=== PATIENT | female | born 1945 | race Caucasian/White ===

== ENCOUNTER 2020-06-24 06:07 | Outpatient (REF) | payer MEDICARE, OTHER, SELFPAY ==
[2020-06-24 11:29] LABS: Estimated Average Glucose 189 mg/dL; Hemoglobin A1c % 8.2 %
[2020-06-24 11:42] LABS: Alanine Aminotransferase 51 U/L (0-31); Anion Gap 14 (12-20); Aspartate Amino Transferase 30 U/L (5-31); Blood Urea Nitrogen 25 mg/dL (9-16); Carbon Dioxide 26 mmol/L (22-29); Chloride 102 mmol/L (96-108); Cholesterol 167 mg/dL; Estimated Glomerular Filt Rate 43; Glucose Fasting 158 mg/dL (60-99); HDL Cholesterol 50 mg/dL; LDL Cholesterol Calculated 81 mg/dl; Potassium 4.2 mmol/l (3.3-5.1); Sodium 138 mmol/L (135-145); Triglycerides 183 mg/dL
[2020-06-24 12:04] LABS: Vitamin D 25-OH Total 57.3 ng/mL (>30)
== END 2020-06-24 06:08 | disposition home or self-care (01) ==
LOC: HO.HMGCLDS 06:07
PROVIDERS: PCP Internal Medicine; Visit Provider Internal Medicine
DX: E78.5 Hyperlipidemia, unspecified (principal); I10 Essential (primary) hypertension; E11.22 Type 2 diabetes mellitus with diabetic chronic kidney disease; E89.40 Asymptomatic postprocedural ovarian failure
CPT/HCPCS: 80048; 80061; 82306; 83036; 84450; 84460

== ENCOUNTER 2020-09-27 06:00 | Outpatient (REF) | payer MEDICARE, OTHER, SELFPAY ==
[2020-09-27 11:26] LABS: Estimated Average Glucose 180 mg/dL; Hemoglobin A1c % 7.9 %
[2020-09-27 11:48] LABS: Alanine Aminotransferase 48 U/L (0-31); Anion Gap 15 (12-20); Aspartate Amino Transferase 33 U/L (5-31); Blood Urea Nitrogen 25 mg/dL (9-16); Calcium 9.1 mg/dL (8.4-10.2); Carbon Dioxide 27 mmol/L (22-29); Chloride 100 mmol/L (96-108); Cholesterol 175 mg/dL; Estimated Glomerular Filt Rate 46; Glucose Fasting 119 mg/dL (60-99); HDL Cholesterol 55 mg/dL; LDL Cholesterol Calculated 84 mg/dl; Potassium 4.1 mmol/L (3.3-5.1); Sodium 138 mmol/L (135-145); Triglycerides 181 mg/dL
[2020-09-27 11:58] LABS: Creatinine Urine 20.99 mg/dL; Microalbum/Creatinine Ratio Ur 38.1 ug/mg cr
== END 2020-09-27 06:01 | disposition home or self-care (01) ==
LOC: HO.HMGCLDS 06:00
PROVIDERS: PCP Internal Medicine; Visit Provider Internal Medicine
DX: E11.65 Type 2 diabetes mellitus with hyperglycemia (principal); E78.5 Hyperlipidemia, unspecified; I10 Essential (primary) hypertension; Z79.4 Long term (current) use of insulin
CPT/HCPCS: 36415; 80048; 80061; 82043; 83036; 84450; 84460

== ENCOUNTER → 2020-10-07 13:18 | Outpatient (BNVA) | payer MEDICARE, OTHER, SELFPAY | PROVIDERS: PCP Internal Medicine; Visit Provider Nurse Practitioner Gerontology | DX: E11.65 Type 2 diabetes mellitus with hyperglycemia (principal); E11.22 Type 2 diabetes mellitus with diabetic chronic kidney disease; I12.9 Hypertensive chronic kidney disease with stage 1 through stage 4 chronic kidney disease, or unspecified chronic kidney disease; N18.30 Chronic kidney disease, stage 3 unspecified; Z79.4 Long term (current) use of insulin; R80.9 Proteinuria, unspecified; E78.5 Hyperlipidemia, unspecified; E66.01 Morbid (severe) obesity due to excess calories; Z68.43 Body mass index [BMI] 50.0-59.9, adult | CPT/HCPCS: 82947; 99212 ==

== ENCOUNTER → 2021-01-06 12:39 | Outpatient (BNVA) | payer MEDICARE, OTHER, SELFPAY | PROVIDERS: PCP Internal Medicine; Visit Provider Nurse Practitioner Gerontology | DX: Z13.89 Encounter for screening for other disorder (principal) | CPT/HCPCS: Q3014 ==

== ENCOUNTER 2021-01-10 06:08 | Outpatient (REF) | payer MEDICARE, OTHER, SELFPAY ==
[2021-01-10 11:53] LABS: Estimated Average Glucose 217 mg/dL; Hemoglobin A1c % 9.2 %
[2021-01-10 11:59] LABS: Alanine Aminotransferase 56 U/L (0-31); Anion Gap 15 (12-20); Aspartate Amino Transferase 49 U/L (5-31); Blood Urea Nitrogen 16 mg/dL (9-16); Calcium 8.9 mg/dL (8.4-10.2); Carbon Dioxide 26 mmol/L (22-29); Chloride 99 mmol/L (96-108); Cholesterol 154 mg/dL; Estimated Glomerular Filt Rate 49; Glucose Fasting 139 mg/dL (60-99); HDL Cholesterol 42 mg/dL; LDL Cholesterol Calculated 75 mg/dl; Potassium 4.1 mmol/L (3.3-5.1); Sodium 136 mmol/L (135-145); Triglycerides 185 mg/dL
[2021-01-10 12:20] LABS: Creatinine Urine 47.89 mg/dL; Microalbum/Creatinine Ratio Ur 43.8 ug/mg cr; Vitamin D 25-OH Total 66.5 ng/mL (>30)
== END 2021-01-10 06:09 | disposition home or self-care (01) ==
LOC: HO.HMGCLDS 06:08
PROVIDERS: PCP Internal Medicine; Visit Provider Nurse Practitioner Gerontology
DX: E11.65 Type 2 diabetes mellitus with hyperglycemia (principal); E11.22 Type 2 diabetes mellitus with diabetic chronic kidney disease; I12.9 Hypertensive chronic kidney disease with stage 1 through stage 4 chronic kidney disease, or unspecified chronic kidney disease; N18.30 Chronic kidney disease, stage 3 unspecified; R80.9 Proteinuria, unspecified; E78.5 Hyperlipidemia, unspecified; E78.2 Mixed hyperlipidemia; Z79.4 Long term (current) use of insulin
CPT/HCPCS: 36415; 80048; 80061; 82043; 82306; 83036; 84450; 84460

== ENCOUNTER → 2021-07-07 09:43 | Outpatient (BNVA) | payer MEDICARE, SELFPAY | PROVIDERS: PCP Internal Medicine; Visit Provider Nurse Practitioner Gerontology | DX: E11.65 Type 2 diabetes mellitus with hyperglycemia (principal); E11.22 Type 2 diabetes mellitus with diabetic chronic kidney disease; I12.9 Hypertensive chronic kidney disease with stage 1 through stage 4 chronic kidney disease, or unspecified chronic kidney disease; N18.30 Chronic kidney disease, stage 3 unspecified; E78.5 Hyperlipidemia, unspecified; E66.01 Morbid (severe) obesity due to excess calories; R80.9 Proteinuria, unspecified; Z79.4 Long term (current) use of insulin; Z68.43 Body mass index [BMI] 50.0-59.9, adult | CPT/HCPCS: 82947; 83036; 99212 ==

== ENCOUNTER 2021-07-10 06:02 | Outpatient (REF) | payer MEDICARE, SELFPAY ==
[2021-07-10 11:53] LABS: Alanine Aminotransferase 46 U/L (0-31); Anion Gap 13 (12-20); Aspartate Amino Transferase 29 U/L (5-31); Blood Urea Nitrogen 22 mg/dL (9-16); Calcium 9.5 mg/dL (8.4-10.2); Carbon Dioxide 27 mmol/L (22-29); Chloride 102 mmol/L (96-108); Cholesterol 183 mg/dL; Estimated Glomerular Filt Rate 47; Glucose Fasting 113 mg/dL (60-99); HDL Cholesterol 56 mg/dL; LDL Cholesterol Calculated 93 mg/dl; Potassium 3.9 mmol/L (3.3-5.1); Sodium 138 mmol/L (135-145); Triglycerides 174 mg/dL
== END 2021-07-10 06:03 | disposition home or self-care (01) ==
LOC: HO.HMGCLDS 06:02
PROVIDERS: PCP Internal Medicine; Visit Provider Internal Medicine
DX: I12.9 Hypertensive chronic kidney disease with stage 1 through stage 4 chronic kidney disease, or unspecified chronic kidney disease (principal); N18.30 Chronic kidney disease, stage 3 unspecified; E11.22 Type 2 diabetes mellitus with diabetic chronic kidney disease; E11.65 Type 2 diabetes mellitus with hyperglycemia; E66.01 Morbid (severe) obesity due to excess calories; Z68.43 Body mass index [BMI] 50.0-59.9, adult; E78.2 Mixed hyperlipidemia; R80.9 Proteinuria, unspecified; Z79.4 Long term (current) use of insulin
CPT/HCPCS: 36415; 80048; 80061; 84450; 84460

== ENCOUNTER → 2021-10-02 09:44 | Outpatient (BNVA) | payer MEDICARE, SELFPAY | PROVIDERS: PCP Internal Medicine; Visit Provider Registered Nurse Diabetes Educator | DX: E11.22 Type 2 diabetes mellitus with diabetic chronic kidney disease (principal); I12.9 Hypertensive chronic kidney disease with stage 1 through stage 4 chronic kidney disease, or unspecified chronic kidney disease; N18.30 Chronic kidney disease, stage 3 unspecified; E78.2 Mixed hyperlipidemia | CPT/HCPCS: 95250 ==

== ENCOUNTER 2021-10-16 07:34 | Outpatient (REF) | payer MEDICARE, SELFPAY ==
[2021-10-16 12:05] LABS: Anion Gap 15 (12-20); Blood Urea Nitrogen 23 mg/dL (9-16); Calcium 9.8 mg/dL (8.4-10.2); Carbon Dioxide 25 mmol/L (22-29); Chloride 102 mmol/L (96-108); Estimated Glomerular Filt Rate 39; Potassium 4.7 mmol/L (3.3-5.1); Sodium 137 mmol/L (135-145)
== END 2021-10-16 07:35 | disposition home or self-care (01) ==
LOC: HO.HMGCLDS 07:34
PROVIDERS: Visit Provider Internal Medicine Hypertension Specialist
DX: I12.9 Hypertensive chronic kidney disease with stage 1 through stage 4 chronic kidney disease, or unspecified chronic kidney disease (principal); N18.31 Chronic kidney disease, stage 3a; E11.22 Type 2 diabetes mellitus with diabetic chronic kidney disease; E11.65 Type 2 diabetes mellitus with hyperglycemia; R80.9 Proteinuria, unspecified; E78.5 Hyperlipidemia, unspecified; E66.01 Morbid (severe) obesity due to excess calories; Z68.43 Body mass index [BMI] 50.0-59.9, adult; Z79.4 Long term (current) use of insulin; Z71.3 Dietary counseling and surveillance
CPT/HCPCS: 36415; 80051; 82310; 82565; 82947; 83036; 84520; 99212

== ENCOUNTER 2021-11-27 06:20 | Outpatient (REF) | payer MEDICARE, SELFPAY ==
[2021-11-27 11:54] LABS: Alanine Aminotransferase 31 U/L (0-31); Anion Gap 13 (12-20); Aspartate Amino Transferase 21 U/L (5-31); Blood Urea Nitrogen 31 mg/dL (9-16); Calcium 9.7 mg/dL (8.4-10.2); Carbon Dioxide 26 mmol/L (22-29); Chloride 102 mmol/L (96-108); Cholesterol 170 mg/dL; Estimated Glomerular Filt Rate 39; Glucose Fasting 136 mg/dL (60-99); HDL Cholesterol 57 mg/dL; LDL Cholesterol Calculated 83 mg/dl; Potassium 4.2 mmol/L (3.3-5.1); Sodium 137 mmol/L (135-145); Triglycerides 154 mg/dL
[2021-11-27 12:00] LABS: Vitamin D 25-OH Total 50.2 ng/mL (>30)
== END 2021-11-27 06:21 | disposition home or self-care (01) ==
LOC: HO.HMGCLDS 06:20
PROVIDERS: Internal Medicine; Visit Provider Internal Medicine
DX: I12.9 Hypertensive chronic kidney disease with stage 1 through stage 4 chronic kidney disease, or unspecified chronic kidney disease (principal); N18.30 Chronic kidney disease, stage 3 unspecified; E11.22 Type 2 diabetes mellitus with diabetic chronic kidney disease; E11.65 Type 2 diabetes mellitus with hyperglycemia; E11.29 Type 2 diabetes mellitus with other diabetic kidney complication; E66.01 Morbid (severe) obesity due to excess calories; Z68.43 Body mass index [BMI] 50.0-59.9, adult; E78.2 Mixed hyperlipidemia; R80.9 Proteinuria, unspecified; Z79.4 Long term (current) use of insulin
CPT/HCPCS: 36415; 80048; 80061; 82306; 84450; 84460

== ENCOUNTER → 2022-01-12 08:46 | Outpatient (BNVA) | payer MEDICARE, SELFPAY | PROVIDERS: PCP Internal Medicine; Visit Provider Nurse Practitioner Gerontology | DX: E11.22 Type 2 diabetes mellitus with diabetic chronic kidney disease (principal); N18.30 Chronic kidney disease, stage 3 unspecified; E11.65 Type 2 diabetes mellitus with hyperglycemia; E78.5 Hyperlipidemia, unspecified; E66.01 Morbid (severe) obesity due to excess calories; R80.9 Proteinuria, unspecified; I10 Essential (primary) hypertension; Z68.43 Body mass index [BMI] 50.0-59.9, adult; Z79.4 Long term (current) use of insulin | CPT/HCPCS: 82947; 99212 ==

== ENCOUNTER 2022-04-16 07:26 | Outpatient (REF) | payer MEDICARE, SELFPAY ==
[2022-04-16 12:05] LABS: Anion Gap 16 (12-20); Blood Urea Nitrogen 29 mg/dL (9-16); Calcium 9.7 mg/dL (8.4-10.2); Carbon Dioxide 24 mmol/L (22-29); Chloride 101 mmol/L (96-108); Estimated Glomerular Filt Rate 39; Potassium 4.2 mmol/L (3.3-5.1); Sodium 137 mmol/L (135-145)
[2022-04-16 12:46] LABS: Total Protein Urine Random < 7 mg/dL (<12)
== END 2022-04-16 07:27 | disposition home or self-care (01) ==
LOC: HO.HMGCLDS 07:26
PROVIDERS: PCP Internal Medicine; Visit Provider Internal Medicine Hypertension Specialist
DX: E11.22 Type 2 diabetes mellitus with diabetic chronic kidney disease (principal); N18.32 Chronic kidney disease, stage 3b
CPT/HCPCS: 36415; 80051; 82310; 82565; 84156; 84520

== ENCOUNTER 2022-09-21 06:43 | Outpatient (REF) | payer MEDICARE, SELFPAY ==
[2022-09-21 12:01] LABS: Estimated Average Glucose 186 mg/dL; Hemoglobin A1c % 8.1 %
[2022-09-21 12:09] LABS: Alanine Aminotransferase 33 U/L (0-31); Anion Gap 13 (12-20); Aspartate Amino Transferase 23 U/L (5-31); Blood Urea Nitrogen 26 mg/dL (9-16); Calcium 8.9 mg/dL (8.4-10.2); Carbon Dioxide 25 mmol/L (22-29); Chloride 102 mmol/L (96-108); Cholesterol 172 mg/dL; Estimated Glomerular Filt Rate 47; Glucose Fasting 150 mg/dL (60-99); HDL Cholesterol 62 mg/dL; LDL Cholesterol Calculated 84 mg/dl; Potassium 4.3 mmol/L (3.3-5.1); Sodium 136 mmol/L (135-145); Triglycerides 134 mg/dL
[2022-09-21 12:58] LABS: Creatinine Urine 13.44 mg/dL; Microalbumin Urine < 5.0 mg/L
== END 2022-09-21 06:44 | disposition home or self-care (01) ==
LOC: HO.HMGCLDS 06:43
PROVIDERS: Visit Provider Internal Medicine
DX: E11.65 Type 2 diabetes mellitus with hyperglycemia (principal); E78.2 Mixed hyperlipidemia; I10 Essential (primary) hypertension; Z79.4 Long term (current) use of insulin
CPT/HCPCS: 36415; 80048; 80061; 82043; 83036; 84450; 84460

== ENCOUNTER 2022-12-28 06:12 | Outpatient (REF) | payer MEDICARE, SELFPAY ==
[2022-12-28 12:08] LABS: Alanine Aminotransferase 37 U/L (0-31); Anion Gap 13 (12-20); Aspartate Amino Transferase 27 U/L (5-31); Blood Urea Nitrogen 20 mg/dL (9-16); Calcium 9.4 mg/dL (8.4-10.2); Carbon Dioxide 25 mmol/L (22-29); Chloride 105 mmol/L (96-108); Cholesterol 159 mg/dL; Estimated Average Glucose 169 mg/dL; Estimated Glomerular Filt Rate 46; Glucose Fasting 126 mg/dL (60-99); HDL Cholesterol 53 mg/dL; Hemoglobin A1c % 7.5 %; LDL Cholesterol Calculated 69 mg/dl; Potassium 3.9 mmol/L (3.3-5.1); Sodium 139 mmol/L (135-145); Triglycerides 186 mg/dL
[2022-12-28 12:11] LABS: Vitamin D 25-OH Total 64.1 ng/mL (>30)
[2022-12-28 12:36] LABS: Creatinine Urine 34.03 mg/dL; Microalbumin Urine < 5.0 mg/L
== END 2022-12-28 06:13 | disposition home or self-care (01) ==
LOC: HO.HMGCLDS 06:12
PROVIDERS: PCP Internal Medicine; Visit Provider Internal Medicine
DX: I12.9 Hypertensive chronic kidney disease with stage 1 through stage 4 chronic kidney disease, or unspecified chronic kidney disease (principal); E11.22 Type 2 diabetes mellitus with diabetic chronic kidney disease; N18.9 Chronic kidney disease, unspecified; E11.65 Type 2 diabetes mellitus with hyperglycemia; E66.01 Morbid (severe) obesity due to excess calories; E78.2 Mixed hyperlipidemia; R80.9 Proteinuria, unspecified; Z79.4 Long term (current) use of insulin
CPT/HCPCS: 36415; 80048; 80061; 82043; 82306; 83036; 84450; 84460

== ENCOUNTER 2023-02-08 06:44 | Outpatient (REF) | payer MEDICARE, SELFPAY ==
[2023-02-08 13:55] LABS: MANUAL DIFF FLAG NO
[2023-02-08 14:10] LABS: Basophils Absolute Auto 0.1 X10*3/uL (0.0-0.2); Basophils Percent Auto 1.2 % (0-2); Eosinophils Absolute Auto 0.3 X10*3/uL (0.0-0.4); Eosinophils Percent Auto 4.8 % (0-4); Hematocrit 43.5 % (37.0-47.0); Hemoglobin 13.6 g/dl (12.0-16.0); Imm Gran Abs Auto 0.07 X10*3/uL (0.00-0.03); Imm Gran Pct Auto 1.2 % (0.0-0.4); Lymphocytes Absolute Auto 1.7 X10*3/uL (1.2-4.9); Lymphocytes Percent Auto 29.1 % (20-40); Mean Corpuscular HGB Conc 31.3 g/dl (31.0-35.0); Mean Corpuscular Volume 89.5 fL (80.0-98.0); Mean Platelet Volume 9.8 fL (9.4-12.3); Monocytes Absolute Auto 0.5 X10*3/uL (0.1-1.2); Monocytes Percent Auto 8.9 % (2-11); Neutrophils Absolute Auto 3.3 x10*3/uL (2.0-8.3); Neutrophils Percent Auto 54.8 % (45-73); Platelet Count 261 X10*3/uL (160-400); Red Blood Count 4.86 X10*6/uL (4.20-5.50); Red Cell Distribution Width 13.5 % (11.0-16.0)
[2023-02-08 14:31] LABS: Anion Gap 15 (12-20); Blood Urea Nitrogen 27 mg/dL (9-16); Calcium 9.4 mg/dL (8.4-10.2); Carbon Dioxide 25 mmol/L (22-29); Chloride 101 mmol/L (96-108); Estimated Glomerular Filt Rate 42; Glucose Random 142 mg/dL (60-115); Potassium 4.1 mmol/L (3.3-5.1); Sodium 137 mmol/L (135-145)
[2023-02-08 14:35] LABS: Creatinine Urine 24.44 mg/dL; Total Protein Urine Random < 7 mg/dL (<12)
== END 2023-02-08 06:45 | disposition home or self-care (01) ==
LOC: HO.HMGCLDS 06:44
PROVIDERS: PCP Internal Medicine; Visit Provider Internal Medicine Hypertension Specialist
DX: I12.9 Hypertensive chronic kidney disease with stage 1 through stage 4 chronic kidney disease, or unspecified chronic kidney disease (principal); N18.9 Chronic kidney disease, unspecified
CPT/HCPCS: 36415; 80048; 84156; 85025

== ENCOUNTER 2023-05-13 07:08 | Outpatient (REF) | payer MEDICARE, SELFPAY ==
[2023-05-13 11:58] LABS: Estimated Average Glucose 160 mg/dL; Hemoglobin A1c % 7.2 % (<6.0)
[2023-05-13 12:01] LABS: Alanine Aminotransferase 36 U/L (0-31); Aspartate Amino Transferase 26 U/L (5-31); Cholesterol 165 mg/dL (<200); HDL Cholesterol 57 mg/dL (>40); LDL Cholesterol Calculated 74 mg/dL (<100); Triglycerides 172 mg/dL (<150)
== END 2023-05-13 07:09 | disposition home or self-care (01) ==
LOC: HO.HMGCLDS 07:08
PROVIDERS: PCP Internal Medicine; Visit Provider Internal Medicine
DX: E11.22 Type 2 diabetes mellitus with diabetic chronic kidney disease (principal); I12.9 Hypertensive chronic kidney disease with stage 1 through stage 4 chronic kidney disease, or unspecified chronic kidney disease; E78.2 Mixed hyperlipidemia; E66.09 Other obesity due to excess calories; N18.9 Chronic kidney disease, unspecified
CPT/HCPCS: 36415; 80061; 83036; 84450; 84460

== ENCOUNTER 2023-05-16 14:52 | Outpatient (AMB) | payer MEDICARE, SELFPAY ==
[2023-05-16 15:43] VITALS: BP 126/68; PULSE 57; O2SAT 97; BMI 56.3
--- NOTE | 2023-05-16 15:43 | MHC.PC.OV ---
Vital Signs 05/16/23 15:43 Height 4 ft 2 in Weight 200 lb 2 oz BMI 56.3 BP 126/68 Blood Pressure Location Rt brachial Position Sitting Pulse 57 Pulse Source Pulse Oximeter Pulse Oximetry (%) 97 Oxygen Delivery Method Room Air Intake Visit Reasons: follow up Intake Note: pt is here to follow up lab results Allergies No Known Allergies [No Known Allergies*] Allergy (Verified 05/16/23 16:06) Medication List - Last Reconciled 05/16/23 by Candice Santoyo MD acetaminophen ER (Tylenol Arthritis Pain) 650 mg PO Q12H amlodipine 10 mg PO DAILY atenolol 150 mg (1.5 x 100 mg) PO DAILY 90 days atorvastatin 20 mg PO DAILY blood sugar diagnostic (CodeHSuch Verio test strips) Three times a day blood-glucose meter (CodeHSuch Verio Meter) As directed calcium citrate-vitamin D3 315 mg-6.25 mcg (250 unit) (Citracal + Vitamin D Maximum) 1 tab PO DAILY cranberry extract 250 mg PO DAILY empagliflozin (Jardiance) 25 mg PO DAILY flaxseed oil 1,000 mg PO BID insulin glargine (Lantus Solostar U-100 Insulin) 50 units (0.5 mL) subcut QAM lancets (CodeHSuch Delica Lancets) Check blood sugar 3 times a day before meals topical 3 times a day lisinopril 30 mg PO DAILY metformin ER 750 mg PO BID multivitamin with minerals 1 cap PO DAILY omega [id number]-[id number]-fish oil 1,200 (144-216) mg (Fish Oil) caps PO pen needle, diabetic (BD Ultra-Fine Short Pen Needle) Use daily as directed subcut daily; repaglinide 2 mg PO TID 30 days Tobacco use date assessed: 05/16/23 Fall risk assessment: No Falls in past year Last assessed Fall Risk: 05/16/23 Dental Screening Dental Screen Date: 05/16/23 Did you have a dental visit in the last 12 months?: No Did you have a dental problem in the last 6 months where you did not have access to dental care?: No Was dental information given to patient?: No HPI follow up HPI Details 77-year-old lady here today for follow-up on her diabetes mellitus, hypertension, dyslipidemia. Has been compliant with taking her medications, has been trying to walk regularly for exercise. She sees Dr. Hinojosa for her routine diabetes foot exam, and has an appointment scheduled 06/27/2023 for her next check. She sees Dr. Carbajal for her routine eye exam, which is currently up-to-date done last 05/10/2023. She has been followed by [facility], sees Dr. Dominique last seen 02/08/2023 with no changes in his medication made. She had recent fasting labs done which showed improvement in her diabetes control now with a hemoglobin A1c at 7.2% and fasting lipids are within normal limits. [facility] Medical History Papanicolaou smear declined Colonoscopy refused Type 2 diabetes mellitus with hyperglycemia Obesity due to excess calories Type 2 diabetes mellitus with chronic kidney disease Mixed dyslipidemia Essential hypertension DUB (dysfunctional uterine bleeding) CKD stage 3 secondary to diabetes Diabetes mellitus with microalbuminuria, with long-term current use of insulin Mammogram declined Diabetes mellitus with hyperglycemia, with long-term current use of insulin Surgical History Hx of hysterectomy S/P LOLIS-BSO Family History Father CAD (coronary artery disease) Mother Diabetes mellitus Lung cancer Sister Diabetes mellitus Social History Household Members: None Housing: House Alcohol intake: never Patient Tobacco Use Status: Former Tobacco user Years Smoked: 14 yrs e-Cigarette/Vaping Use: Never Used service: No Current occupational status: employed Cognitive needs: No Hearing needs: No Vision needs: Yes Questionnaire Thrive Questionnaire Date Thrive assessed: 01/17/23 JOSH-7 AMB Questionnaire JOSH-7 Date JOSH - 7 assessed: 01/17/23 Source: Developed by Drs. Ike Michelle, Gege Mary, David Borges and colleagues, with an educational shea from [employer]. Review of Systems Const Denies body aches, Denies fatigue and Denies malaise Eyes Details: Sees Dr. Carbajal yearly ENT Reports no additional complaints Card Denies palpitations and Denies dyspnea Resp Denies cough and Denies dyspnea GI Denies abdominal pain, Denies melena, Denies hematochezia, Denies change in bowel habits and Denies heartburn Denies hematuria, Denies urinary frequency, Denies dysuria and Reports urinary incontinence (occasional) Musc Reports muscle cramps, Denies muscle weakness, Denies numbness and Denies tingling Skin/Breast Denies breast pain, Denies breast mass and Denies rash Neuro Denies burning sensations, Denies numbness, Denies tingling and Denies paresthesias Psych Denies depression Endo Denies fatigue, Denies polydipsia, Reports polyuria and Denies palpitations Obi/Lymph Denies easy bruising Physical exam (Primary Care) Vital Signs: Last Vital Signs Pulse 57 05/16/23 15:43 BP 126/68 05/16/23 15:43 Pulse Ox 97 05/16/23 15:43 Oxygen Delivery Method Room Air 05/16/23 15:43 BMI result Body Mass Index 56.3 BMI Assessment/Plan discussion: High BMI High, discussed plan: lifestyle, weight reduction, dietary and physical activity Tobacco/Smoking Status: Tobacco use Status Tobacco use date assessed 05/16/23 05/16/23 15:51 Patient Tobacco Use Status Former Tobacco user 05/16/23 15:45 e-Cigarette/Vaping Use Never Used 05/16/23 15:45 Thrive Assessment: Date of Thrive Assessment Date Thrive assessed 01/17/23 05/16/23 15:45 Const General: cooperative, comfortable and no acute distress Nutritional Appearance: obese morbidly obese Orientation/consciousness: patient oriented x3 HENMT Ears: TM's normal bilaterally and EAC's normal General nose exam: Normal external nose present, Normal nasal mucous membranes and turbinates present and No nasal discharge present Mouth: Normal oral and palatal mucosa present, oropharynx normal and moist mucous membranes Eyes General: appearance normal, both eyes and all related structures Neck Neck: Yes full ROM, Yes no lymphadenopathy and Yes supple Resp Effort & Inspection: normal respiratory effort and able to speak in complete sentences Auscultation: clear to auscultation bilaterally Cardio Rate: regular rate Rhythm: regular rhythm Heart sounds: S1 normal heart sound present and S2 normal heart sound present GI Inspection: Yes obesity Palpation (GI): Soft to palpation, nontender, no guarding and no masses Auscultation: normal bowel sounds Back/Spine/Pelvis Cervical Spine: cervical ROM normal Thoracic/Lumbar Spine: thoracic and lumbar spine normal to inspection Skin General skin exam: no rashes or lesions noted Neuro General: patient oriented x3, gait normal, tone normal, moves all extremities, Normal light touch and pain sensation and no focal motor deficits Cognition (Neuro): normal cognition Gait exam (Neuro): Normal gait present Motor exam (neuro): 5/5 motor strength present throughout Extrem General: Yes full ROM, Yes no joint enlargement, Yes no pedal edema, Yes no calf tenderness and Yes normal gait Immunizations pneumoc 20-bertha conj-dip cr(PF) 0.5 mL IM syringe Performing Provider: Candice Santoyo MD Performing Location: [facility] Administered by: Jada Mejia CMA on 05/16/23 16:38 Dose Route Admin Location Dispensed Lot Number Expiration Date NDC 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 Representative [employer] 0.5 mL IM Right Deltoid 0.5 mL [id number] 03/20/24 8792-0838-07 [employer] VIS Given Date VIS Provided VIS Publication Date 05/16/23 Single Vaccine 21 Eligibility Eligibility Date Funding Source Not [facility] Eligible 05/16/23 Private Results Reviewed Results Reviewed: Laboratory Tests 05/13/23 07:18 Estimat Average Glucose 160 Hemoglobin A1c % 7.2 H AST 26 ALT 36 H Triglycerides 172 H Cholesterol 165 LDL Cholesterol, Calc 74 HDL Cholesterol 57 Assessment and Plan Assessment & Plan (1) Type 2 diabetes mellitus with hyperglycemia: Code(s): E11.65 - Type 2 diabetes mellitus with hyperglycemia Qualifiers: Diabetes mellitus bed bug exterminator insulin use: with bed bug exterminator use Qualified Code(s): E11.65 - Type 2 diabetes mellitus with hyperglycemia; Z79.4 - penitentiary (current) use of insulin Plan: Improvement during her diabetes control seen with hemoglobin A1c now at 7.2%, will continue on current treatment. Recommended diet and getting regular exercise. Up-to-date with her diabetes eye exam and sees Dr. Hinojosa for her routine foot care. Reminded to get her COVID booster, up-to-date with her flu vaccine shingles vaccine and Tdap, Prevnar 20 given today (2) Essential hypertension: Code(s): I10 - Essential (primary) hypertension Plan: Blood pressure at goal of less than 130/80. Continue with current medication. Reinforced importance of following a low sodium diet, getting regular exercise, and lowering stress levels. (3) Mixed dyslipidemia: Code(s): E78.2 - Mixed hyperlipidemia Plan: Reviewed recent fasting lipid profile with patient with levels within normal limits . Continue with atorvastatin 20 mg daily in addition to [place] 3 fatty acid supplements , in addition to adherence to low-cholesterol diet and regular exercise, at least 30 minutes 3 to 4 times a week. Advised patient to make healthy food choices, eat more fruits, vegetables, whole grains, wild caught fish and low-fat dairy. Limit amount of meat and fried or fatty food products, as well as processed foods and fast foods. Follow-up scheduled with repeat fasting lipid panel in 6 months. (4) Obesity due to excess calories: Code(s): E66.09 - Other obesity due to excess calories Qualifiers: Body mass index: BMI 50.0-59.9 Obesity classification: adult class 3 (BMI >= 40) Serious obesity comorbidity presence: with serious comorbidity Qualified Code(s): E66.01 - Morbid (severe) obesity due to excess calories; Z68.43 - Body mass index [BMI] 50.0-59.9, adult Plan: Recommended focusing on improving health instead of dieting. Mediterranean diet is a healthy diet that helps, limit food high in fat, sugar, and calories. Eat slowly, pay attention to portion sizes, plan your meals ahead of time, continue with regular physical activity, at least 150 minutes of moderate intensity exercise, or 90 minutes per week of vigorous exercise. Keeping a food diary, tracking what you eat and your physical activity can help assess what improvements you can make. There are many health problems associated with being overweight/obese, so it is important to improve your diet and exercise. Declined referral to weight management program (5) CKD stage 3 secondary to diabetes: Code(s): E11.22 - Type 2 diabetes mellitus with diabetic chronic kidney disease; N18.30 - Chronic kidney disease, stage 3 unspecified Plan: Referred back to Dr. Dominique for follow-up Orders: Orders Hemoglobin A1c 6 Months E11.22 - Type 2 diabetes mellitus with diabetic chronic kidney disease, E11.29 - Type 2 diabetes mellitus with other diabetic kidney complication, E11.65 - Type 2 diabetes mellitus with hyperglycemia, E66.09 - Other obesity due to excess calories, E78.2 - Mixed hyperlipidemia, I10 - Essential (primary) hypertension, N18.30 - Chronic kidney disease, stage 3 unspecified, R80.9 - Proteinuria, unspecified, Z78.0 - Asymptomatic menopausal state, Z79.4 - penitentiary (current) use of insulin Lipid Panel 6 Months E11.22 - Type 2 diabetes mellitus with diabetic chronic kidney disease, E11.29 - Type 2 diabetes mellitus with other diabetic kidney complication, E11.65 - Type 2 diabetes mellitus with hyperglycemia, E66.09 - Other obesity due to excess calories, E78.2 - Mixed hyperlipidemia, I10 - Essential (primary) hypertension, N18.30 - Chronic kidney disease, stage 3 unspecified, R80.9 - Proteinuria, unspecified, Z78.0 - Asymptomatic menopausal state, Z79.4 - penitentiary (current) use of insulin Vitamin D 25-OH Total 6 Months E11.22 - Type 2 diabetes mellitus with diabetic chronic kidney disease, E11.29 - Type 2 diabetes mellitus with other diabetic kidney complication, E11.65 - Type 2 diabetes mellitus with hyperglycemia, E66.09 - Other obesity due to excess calories, E78.2 - Mixed hyperlipidemia, I10 - Essential (primary) hypertension, N18.30 - Chronic kidney disease, stage 3 unspecified, R80.9 - Proteinuria, unspecified, Z78.0 - Asymptomatic menopausal state, Z79.4 - terminal operations manager (current) use of insulin Pneumococcal 20 Immunization 05/16/23 Z23 - Encounter for immunization Comprehensive [place]. Panel Fast 6 Months E11.22 - Type 2 diabetes mellitus with diabetic chronic kidney disease, E11.29 - Type 2 diabetes mellitus with other diabetic kidney complication, E11.65 - Type 2 diabetes mellitus with hyperglycemia, E66.09 - Other obesity due to excess calories, E78.2 - Mixed hyperlipidemia, I10 - Essential (primary) hypertension, N18.30 - Chronic kidney disease, stage 3 unspecified, R80.9 - Proteinuria, unspecified, Z78.0 - Asymptomatic menopausal state, Z79.4 - terminal operations manager (current) use of insulin Microalbumin, Random (w Creat) 6 Months E11.22 - Type 2 diabetes mellitus with diabetic chronic kidney disease, E11.29 - Type 2 diabetes mellitus with other diabetic kidney complication, E11.65 - Type 2 diabetes mellitus with hyperglycemia, E66.09 - Other obesity due to excess calories, E78.2 - Mixed hyperlipidemia, I10 - Essential (primary) hypertension, N18.30 - Chronic kidney disease, stage 3 unspecified, R80.9 - Proteinuria, unspecified, Z78.0 - Asymptomatic menopausal state, Z79.4 - terminal operations manager (current) use of insulin Referrals Nephrology Referral E11.22 - Type 2 diabetes mellitus with diabetic chronic kidney disease, E11.29 - Type 2 diabetes mellitus with other diabetic kidney complication, I10 - Essential (primary) hypertension, N18.30 - Chronic kidney disease, stage 3 unspecified, R80.9 - Proteinuria, unspecified, Z79.4 - terminal operations manager (current) use of insulin Coding Level of Care Code Est Pt Level 4 (67639) Diagnoses Type 2 diabetes mellitus with hyperglycemia, with long-term current use of insulin E11.65; Z79.4 Diabetes mellitus intermediate insulin use: with intermediate use Essential hypertension I10 Mixed dyslipidemia E78.2 Class 3 severe obesity due to excess calories with serious comorbidity and body mass index (BMI) of 50.0 to 59.9 in adult E66.01; Z68.43 Body mass index: BMI 50.0-59.9 Obesity classification: adult class 3 (BMI >= 40) Serious obesity comorbidity presence: with serious comorbidity CKD stage 3 secondary to diabetes E11.22; N18.30
== END 2023-05-16 17:29 | disposition home or self-care (01) ==
PROVIDERS: PCP Internal Medicine; Visit Provider Internal Medicine
DX: Z23 Encounter for immunization (principal)
CPT/HCPCS: 90471; 90677; 99214

== ENCOUNTER 2023-06-06 11:29 | Outpatient (AMB) | payer MEDICARE, SELFPAY ==
--- NOTE | 2023-06-06 11:34 | HO.NEPHOV ---
HPI HPI Comments History of Present Illness Details Erica is a elderly woman with his obesity and hypertension with minimal proteinuria. She is here for same and will follow-up. Recently had a fall. This was accidental no lightheadedness. 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 mellitus with microalbuminuria, with long-term current use of insulin Mammogram declined Diabetes mellitus with hyperglycemia, with long-term current use of insulin Surgical History Hx of hysterectomy S/P LOLIS-BSO Family History Father CAD (coronary artery disease) Mother Diabetes mellitus Lung cancer Sister Diabetes mellitus Social History Household Members: None Housing: House Alcohol intake: never Patient Tobacco Use Status: Former Tobacco user Years Smoked: 14 yrs e-Cigarette/Vaping Use: Never Used service: No Current occupational status: employed Cognitive needs: No Hearing needs: No Vision needs: Yes Vital Signs 06/06/23 11:35 Height 4 ft 2 in Weight 198 lb BMI 55.7 BP 138/80 Blood Pressure Location Lt popliteal Position Sitting Pulse 71 Pulse Source Pulse Oximeter Pulse Oximetry (%) 98 Oxygen Delivery Method Room Air Physical Exam Vital Signs: Last Vital Signs Pulse 71 06/06/23 11:35 BP 138/80 06/06/23 11:35 Pulse Ox 98 06/06/23 11:35 Oxygen Delivery Method Room Air 06/06/23 11:35 BMI result Body Mass Index 55.7 Const General: comfortable Nutritional Appearance: well nourished Orientation/consciousness: patient oriented x3 HEENT Head: No normal to inspection Mouth: moist mucous membranes Neck Neck: Yes supple and Yes no JVD Resp Auscultation: clear to auscultation bilaterally, no rales and rub present Cardio Jugular venous distension: no JVD Palpation: no palpable S3 and no palpable S4 Heart sounds: no rubs GI Palpation (GI): Soft to palpation and nontender Percussion: No Fluid wave present General: Yes no CVA tenderness Back/Spine/Pelvis Back: no CVA tenderness Skin General skin exam: no rashes or lesions noted Neuro General: patient oriented x3 Extrem General: Yes edema Results Reviewed Results Reviewed: Previous lab results were reviewed Assessment & Plan Assessment & Plan (1) CKD (chronic kidney disease) stage 3, GFR 30-59 ml/min: Code(s): N18.30 - Chronic kidney disease, stage 3 unspecified Plan: Mild CKD in setting of longstanding hypertension admitted obesity. No significant proteinuria. She probably has hypertensive nephrosclerosis. Goal is to slow the progression of disease. Continue avoid nephrotoxic agents. She will benefit from weight loss. Continue with Jardiance for cardiorenal protection (2) Type 2 diabetes mellitus with chronic kidney disease: Code(s): E11.22 - Type 2 diabetes mellitus with diabetic chronic kidney disease Qualifiers: Diabetes mellitus adjunct faculty for medical terminology insulin use: without adjunct faculty for medical terminology use Chronic kidney disease stage: stage 3 (moderate) Chronic kidney disease stage 3 subtype: unspecified whether 3a or 3b Qualified Code(s): E11.22 - Type 2 diabetes mellitus with diabetic chronic kidney disease; N18.30 - Chronic kidney disease, stage 3 unspecified Plan: Goals of maintain the hemoglobin A1c less than 7%. The A1c is gradually trending down. I have increased her to monitor her diet and try to achieve a hemoglobin A1c of less than 7%. She will also benefit from weight loss. (3) Essential hypertension: Code(s): I10 - Essential (primary) hypertension Plan: Blood pressure is acceptable today. Increase fruits and low-sodium diet. She should lose weight. Increased again monitoring of blood pressure at home as well Orders: Orders Blood Urea Nitrogen Today E11.22 - Type 2 diabetes mellitus with diabetic chronic kidney disease, N18.30 - Chronic kidney disease, stage 3 unspecified Creatinine Today E11.22 - Type 2 diabetes mellitus with diabetic chronic kidney disease, N18.30 - Chronic kidney disease, stage 3 unspecified Calcium Today E11.22 - Type 2 diabetes mellitus with diabetic chronic kidney disease, N18.30 - Chronic kidney disease, stage 3 unspecified Creatinine Urine Today E11.22 - Type 2 diabetes mellitus with diabetic chronic kidney disease, N18.30 - Chronic kidney disease, stage 3 unspecified Electrolytes Today E11.22 - Type 2 diabetes mellitus with diabetic chronic kidney disease, N18.30 - Chronic kidney disease, stage 3 unspecified Total Protein Urine Random Today E11.22 - Type 2 diabetes mellitus with diabetic chronic kidney disease, N18.30 - Chronic kidney disease, stage 3 unspecified Coding Level of Care Code Est Pt Level 4 (74556) Diagnoses CKD (chronic kidney disease) stage 3, GFR 30-59 ml/min N18.30 Type 2 diabetes mellitus with stage 3 chronic kidney disease, without long-term current use of insulin, unspecified whether stage 3a or 3b CKD E11.22; N18.30 Diabetes mellitus usp insulin use: without usp use Chronic kidney disease stage: stage 3 (moderate) Chronic kidney disease stage 3 subtype: unspecified whether 3a or 3b Essential hypertension I10
[2023-06-06 11:35] VITALS: BP 138/80; PULSE 71; O2SAT 98; BMI 55.7
== END 2023-06-06 11:47 | disposition home or self-care (01) ==
PROVIDERS: PCP Internal Medicine; Visit Provider Internal Medicine Hypertension Specialist
DX: E11.22 Type 2 diabetes mellitus with diabetic chronic kidney disease (principal); N18.30 Chronic kidney disease, stage 3 unspecified; I12.9 Hypertensive chronic kidney disease with stage 1 through stage 4 chronic kidney disease, or unspecified chronic kidney disease
CPT/HCPCS: 99214

== ENCOUNTER → 2023-06-06 11:29 | Outpatient (BNVA) | payer MEDICARE, SELFPAY | PROVIDERS: PCP Internal Medicine; Visit Provider Internal Medicine Hypertension Specialist | DX: E11.22 Type 2 diabetes mellitus with diabetic chronic kidney disease (principal); I12.9 Hypertensive chronic kidney disease with stage 1 through stage 4 chronic kidney disease, or unspecified chronic kidney disease; N18.30 Chronic kidney disease, stage 3 unspecified | CPT/HCPCS: 99212 ==

== ENCOUNTER 2023-06-06 11:51 | Outpatient (REF) | payer MEDICARE, SELFPAY ==
[2023-06-06 13:42] LABS: Anion Gap 14 (12-20); Blood Urea Nitrogen 21 mg/dL (9-16); Calcium 9.6 mg/dL (8.4-10.2); Carbon Dioxide 26 mmol/L (22-29); Chloride 103 mmol/L (96-108); Estimated Glomerular Filt Rate 46; Potassium 4.2 mmol/L (3.3-5.1); Sodium 139 mmol/L (135-145)
[2023-06-06 14:09] LABS: Creatinine Urine 59.49 mg/dL; Total Protein Urine Random 9 mg/dL (<12)
== END 2023-06-06 11:52 | disposition home or self-care (01) ==
LOC: HO.10HDL 11:51
PROVIDERS: Visit Provider Internal Medicine Hypertension Specialist
DX: E11.22 Type 2 diabetes mellitus with diabetic chronic kidney disease (principal); N18.30 Chronic kidney disease, stage 3 unspecified
CPT/HCPCS: 36415; 80051; 82310; 82565; 82570; 84156; 84520

== ENCOUNTER 2023-11-08 07:26 | Outpatient (REF) | payer MEDICARE, SELFPAY ==
[2023-11-08 11:07] LABS: Estimated Average Glucose 169 mg/dL; Hemoglobin A1c % 7.5 % (<6.0)
[2023-11-08 11:36] LABS: Microalbum/Creatinine Ratio Ur 104.5 ug/mg cr (<30)
[2023-11-08 11:48] LABS: Alanine Aminotransferase 24 U/L (0-31); Albumin Level 3.8 g/dL (3.5-5.0); Alkaline Phosphatase 56 U/L (39-117); Anion Gap 15 (12-20); Aspartate Amino Transferase 21 U/L (5-31); Bilirubin Total 0.5 mg/dL (0.0-1.0); Blood Urea Nitrogen 22 mg/dL (9-16); Calcium 9.6 mg/dL (8.4-10.2); Carbon Dioxide 25 mmol/L (22-29); Chloride 103 mmol/L (96-108); Cholesterol 160 mg/dL (<200); Estimated Glomerular Filt Rate 53; Glucose Fasting 129 mg/dL (60-99); HDL Cholesterol 57 mg/dL (>40); LDL Cholesterol Calculated 76 mg/dL (<100); Potassium 4.1 mmol/L (3.3-5.1); Sodium 139 mmol/L (135-145); Total Protein 6.9 g/dL (6.5-8.0); Triglycerides 135 mg/dL (<150)
[2023-11-08 11:53] LABS: Vitamin D 25-OH Total 89.8 ng/mL (>30)
== END 2023-11-08 07:27 | disposition home or self-care (01) ==
LOC: HO.HMGCLDS 07:26
PROVIDERS: PCP Internal Medicine; Visit Provider Internal Medicine
DX: E11.65 Type 2 diabetes mellitus with hyperglycemia (principal); E11.22 Type 2 diabetes mellitus with diabetic chronic kidney disease; E11.29 Type 2 diabetes mellitus with other diabetic kidney complication; I12.9 Hypertensive chronic kidney disease with stage 1 through stage 4 chronic kidney disease, or unspecified chronic kidney disease; N18.30 Chronic kidney disease, stage 3 unspecified; E66.09 Other obesity due to excess calories; E78.2 Mixed hyperlipidemia; R80.9 Proteinuria, unspecified; Z79.4 Long term (current) use of insulin; Z78.0 Asymptomatic menopausal state
CPT/HCPCS: 36415; 80053; 80061; 82043; 82306; 82570; 83036

== ENCOUNTER 2023-12-05 10:58 | Outpatient (AMB) | payer MEDICARE, SELFPAY ==
[2023-12-05 11:00] VITALS: BP 152/80; PULSE 85; O2SAT 97; BMI 56.8
--- NOTE | 2023-12-05 11:00 | HO.NEPHOV ---
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 She is here for same and will follow-up. Recently had a fall. This was accidental no lightheadedness. No significant injuries other than superficial bruises No new complaints today [facility] Medical History Papanicolaou smear declined Colonoscopy refused Type 2 diabetes mellitus with hyperglycemia Obesity due to excess calories Type 2 diabetes mellitus with chronic kidney disease Mixed dyslipidemia Essential hypertension DUB (dysfunctional uterine bleeding) CKD stage 3 secondary to diabetes Diabetes mellitus with microalbuminuria, with long-term current use of insulin Mammogram declined Diabetes mellitus with hyperglycemia, with long-term current use of insulin Surgical History Hx of hysterectomy S/P LOLIS-BSO Family History Father CAD (coronary artery disease) Mother Diabetes mellitus Lung cancer Sister Diabetes mellitus Social History Household Members: None Housing: House Alcohol intake: never Patient Tobacco Use Status: Former Tobacco user Years Smoked: 14 yrs e-Cigarette/Vaping Use: Never Used service: No Current occupational status: employed Cognitive needs: No Hearing needs: No Vision needs: Yes Physical Exam Vital Signs: Last Vital Signs Pulse 85 12/05/23 11:00 BP 152/80 H 12/05/23 11:00 Pulse Ox 97 12/05/23 11:00 Oxygen Delivery Method Room Air 12/05/23 11:00 BMI result Body Mass Index 56.8 Const General: comfortable Nutritional Appearance: well nourished Orientation/consciousness: patient oriented x3 HEENT Head: No normal to inspection Mouth: moist mucous membranes Neck Neck: Yes supple and Yes no JVD Resp Auscultation: clear to auscultation bilaterally, no rales and rub present Cardio Jugular venous distension: no JVD Palpation: no palpable S3 and no palpable S4 Heart sounds: no rubs GI Palpation (GI): Soft to palpation and nontender Percussion: No Fluid wave present General: Yes no CVA tenderness Back/Spine/Pelvis Back: no CVA tenderness Skin General skin exam: no rashes or lesions noted Neuro General: patient oriented x3 Extrem General: Yes edema Results Reviewed Nephrology Results: Hgb 13.6 g/dl (12.0-16.0) 02/08/23 WBC 6.0 X10*3/uL (4.8-10.8) 02/08/23 Plt Count 261 X10*3/uL (160-400) 02/08/23 Sodium 139 mmol/L (135-145) 11/08/23 Potassium 4.1 mmol/L (3.3-5.1) 11/08/23 Chloride 103 mmol/L (96-108) 11/08/23 Carbon Dioxide 25 mmol/L (22-29) 11/08/23 BUN 22 mg/dL (9-16) H 11/08/23 Creatinine 1.02 mg/dL (0.5-1.4) 11/08/23 Calcium 9.6 mg/dL (8.4-10.2) 11/08/23 Urine Creatinine 37.30 mg/dL 11/08/23 Protein/Creatinin Ratio TNP 02/08/23 Assessment & Plan Assessment & Plan (1) CKD (chronic kidney disease) stage 3, GFR 30-59 ml/min: Code(s): N18.30 - Chronic kidney disease, stage 3 unspecified Category: Medical Plan: Mild CKD in setting of longstanding hypertension and obesity. No significant proteinuria She probably has hypertensive nephrosclerosis. Goal is to slow the progression of disease. Continue avoid nephrotoxic agents. She will benefit from weight loss. 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 The A1c is gradually trending down. I have increased her to monitor her diet and try to achieve a hemoglobin A1c of less than 7%. She will also benefit from weight loss. (3) Essential hypertension: Code(s): I10 - Essential (primary) hypertension Category: Medical Plan: Blood pressure is acceptable today. Increase fluids and stay on low-sodium diet. She should lose weight. 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
[2023-12-05 11:13] VITALS: BP 140/80
== END 2023-12-05 11:16 | disposition home or self-care (01) ==
PROVIDERS: PCP Internal Medicine; Visit Provider Internal Medicine Hypertension Specialist
DX: E11.22 Type 2 diabetes mellitus with diabetic chronic kidney disease (principal); N18.30 Chronic kidney disease, stage 3 unspecified; I10 Essential (primary) hypertension
CPT/HCPCS: 99214

== ENCOUNTER → 2023-12-05 10:58 | Outpatient (BNVA) | payer MEDICARE, SELFPAY | PROVIDERS: PCP Internal Medicine; Visit Provider Internal Medicine Hypertension Specialist | DX: E11.22 Type 2 diabetes mellitus with diabetic chronic kidney disease (principal); I12.9 Hypertensive chronic kidney disease with stage 1 through stage 4 chronic kidney disease, or unspecified chronic kidney disease; N18.30 Chronic kidney disease, stage 3 unspecified | CPT/HCPCS: 99212 ==

== ENCOUNTER 2023-12-19 15:37 | Outpatient (AMB) | payer MEDICARE, SELFPAY ==
--- NOTE | 2023-12-19 15:41 | MHC.PC.OV ---
Vital Signs 12/19/23 15:51 Height 4 ft 2 in Weight 201 lb BMI 56.5 BP 140/80 H Blood Pressure Location Rt brachial Position Sitting Pulse 89 Pulse Source Pulse Oximeter Pulse Oximetry (%) 98 Oxygen Delivery Method Room Air Intake Visit Reasons: 6month fu diabetics Intake Note: Pt is here today for her 6 mo. f/u DM Information Interpreted: non-clinical only Allergies No Known Allergies [No Known Allergies*] Allergy (Verified 12/19/23 16:16) Medication List - Last Reconciled 12/19/23 by Candice Santoyo MD acetaminophen ER (Tylenol Arthritis Pain) 650 mg PO Q12H amlodipine 10 mg PO DAILY atenolol 150 mg (1.5 x 100 mg) PO DAILY 90 days atorvastatin 20 mg PO DAILY blood sugar diagnostic ([employer] Verio test strips) Three times a day blood-glucose meter ([employer] Verio Meter) As directed calcium citrate-vitamin D3 315 mg-6.25 mcg (250 unit) (Citracal + Vitamin D Maximum) 1 tab PO DAILY cranberry extract 250 mg PO DAILY empagliflozin (Jardiance) 25 mg PO DAILY flaxseed oil 1,000 mg PO BID insulin glargine (Lantus Solostar U-100 Insulin) 50 units (0.5 mL) subcut QAM lancets Check blood sugar 3 times a day before meals topical 3 times a day lisinopril 30 mg PO DAILY metformin ER 750 mg PO BID multivitamin with minerals 1 cap PO DAILY omega 8-ykc-asp-fish oil 1,200 (144-216) mg (Fish Oil) caps PO pen needle, diabetic (BD Ultra-Fine Short Pen Needle) Use daily as directed subcut daily; repaglinide 2 mg PO TID 30 days Tobacco use date assessed: 12/19/23 Fall risk assessment: 1 Fall in past year Last assessed Fall Risk: 12/19/23 Dental Screening Dental Screen Date: 12/19/23 Did you have a dental visit in the last 12 months?: No Was dental information given to patient?: No HPI 6month fu diabetics HPI Details 78-year-old lady with diabetes mellitus type 2, currently on insulin glargine 15 units subcutaneously given in the morning, metformin ER 750 mg twice a day,, repaglinide 2 mg 1 tablet 3 times a day with meals and Jardiance 25 mg daily in a.m., here today for follow-up. Has been taking her medicines as directed, however admits to not getting any regular exercise this past few months, but has been compliant with recommended diet. She states that she has not been walking as much due to recent fall. Missed a step going into her has and landed on the pavement, did not get check was able to get up but states that she has been unsteady when she walks, and is afraid of falling. Latest labs done showed hemoglobin A1c is higher than last check , from 7.2 to-7.5%. She has hyperlipidemia, currently on [place] 3 fatty acid supplements and atorvastatin 20 mg daily. Recent fasting labs showed lipids are within normal limits [facility] Medical History (Updated 12/19/23 @ 16:22 by Candice Santoyo MD) Gait instability Papanicolaou smear declined Colonoscopy refused Obesity due to excess calories Type 2 diabetes mellitus with chronic kidney disease Mixed dyslipidemia Essential hypertension DUB (dysfunctional uterine bleeding) CKD stage 3 secondary to diabetes Diabetes mellitus with microalbuminuria, with long-term current use of insulin Mammogram declined Diabetes mellitus with hyperglycemia, with long-term current use of insulin Surgical History Hx of hysterectomy S/P LOLIS-BSO Family History Father CAD (coronary artery disease) Mother Diabetes mellitus Lung cancer Sister Diabetes mellitus Social History Household Members: None Housing: House Alcohol intake: never Patient Tobacco Use Status: Former Tobacco user Years Smoked: 14 yrs e-Cigarette/Vaping Use: Never Used service: No Current occupational status: employed Cognitive needs: No Hearing needs: No Vision needs: Yes Questionnaire PHQ-9 Over the last 2 weeks, how often have you been bothered by any of the following problems? 1. Little interest or pleasure in doing things: not at all 2. Feeling down, depressed, or hopeless: not at all 3. Trouble falling or staying asleep, or sleeping too much: not at all 4. Feeling tired or having little energy: not at all 5. Poor appetite or overeating: not at all 6. Feeling bad about yourself - or that you are a failure or have let yourself or your family down: not at all 7. Trouble concentrating on things, such as reading the newspaper or watching television: not at all 8. Moving or speaking so slowly that other people could have noticed. Or the opposite - being so fidgety or restless that you have been moving around a lot more than usual: not at all 9. Thoughts that you would be better off or of hurting yourself in some way: not at all Total score: 0 Depression Screening Interpretation: Negative Depression Screening Done: Yes 45497 - PHQ-9 Billing: Yes Source: Developed by Drs. Ike Michelle, Gege Mary, David Borges and colleagues, with an educational shea from [employer]. Thrive Questionnaire Date Thrive assessed: 12/19/23 I am a: Patient What is your living situation today?: I have a steady place to live Within the past 12 months, did the food you bought not last and you didn't have the money to get more?: Never true Within the past 12 months, did you worry whether your food would run out before you got money to buy more?: Never true Do you have trouble paying for medicines?: No Do you have trouble getting transportation to medical appointments?: No Do you have trouble paying your heating and electricity bill?: No Do you have trouble taking care of your child, family member or friend?: No Do you have trouble with day-to-day activities such as bathing, preparing meals, shopping, managing finances, etc.?: No Are you currently unemployed and looking for a job?: No Are you interested in more education?: No THRIVE Score: 0 JOSH-7 AMB Questionnaire JOSH-7 Date JOSH - 7 assessed: 12/19/23 Feeling nervous, anxious, or on edge: 0 = Not at all Not being able to stop or control worryin = Not at all Worrying too much about different things: 0 = Not at all Trouble relaxin = Not at all Being so restless that it is hard to sit still: 0 = Not at all Becoming easily annoyed or irritable: 0 = Not at all Feeling afraid as if something awful might happen: 0 = Not at all Total JOSH-7 score (0-4 normal; 5-9 mild; 10-14 moderate; 15-21 severe): 0 Source: Developed by Drs. Ike Michelle, Gege Mary, David Borges and colleagues, with an educational shea from [employer]. Review of Systems Const Denies body aches, Denies fatigue, Denies headache(s) and Denies malaise Eyes Details: Sees Dr. Carbajal yearly ENT Reports no additional complaints, Denies vertigo, Denies dizziness and Denies headache(s) Card Denies palpitations and Denies dyspnea Resp Denies cough and Denies dyspnea GI Denies abdominal pain, Denies melena, Denies hematochezia, Denies change in bowel habits and Denies heartburn Denies hematuria, Denies urinary frequency, Denies dysuria and Reports urinary incontinence (occasional) Musc Denies muscle weakness, Denies numbness, Reports stiffness and Denies tingling Skin/Breast Denies breast pain, Denies breast mass and Denies rash Neuro Reports as per HPI, Denies vertigo, Denies dizziness, Denies headache(s), Denies focal weakness, Denies numbness, Denies Sensory deficit (Neuro), Denies tingling and Denies paresthesias Psych Denies depression Endo Denies fatigue, Denies polydipsia, Reports polyuria and Denies palpitations Obi/Lymph Denies easy bruising Physical exam (Primary Care) Vital Signs: Last Vital Signs Pulse 89 12/19/23 15:51 BP 140/80 H 12/19/23 15:51 Pulse Ox 98 12/19/23 15:51 Oxygen Delivery Method Room Air 12/19/23 15:51 BMI result Body Mass Index 56.5 BMI Assessment/Plan discussion: High BMI High, discussed plan: lifestyle, weight reduction, dietary and physical activity Tobacco/Smoking Status: Tobacco use Status Tobacco use date assessed 12/19/23 12/19/23 15:44 Patient Tobacco Use Status Former Tobacco user 12/19/23 15:44 e-Cigarette/Vaping Use Never Used 12/19/23 15:44 PHQ-9: PHQ-9 Score PHQ-9: Total score 0 12/19/23 16:15 Depression Screening Interpretation: Negative Thrive Assessment: Date of Thrive Assessment Date Thrive assessed 12/19/23 12/19/23 15:58 Const General: cooperative, comfortable and no acute distress Nutritional Appearance: obese morbidly obese Orientation/consciousness: patient oriented x3 HENMT Ears: external ears normal General nose exam: Normal external nose present Mouth: Normal oral and palatal mucosa present, oropharynx normal and moist mucous membranes Eyes General: appearance normal, both eyes and all related structures Neck Neck: Yes full ROM, Yes no lymphadenopathy and Yes supple Resp Effort & Inspection: normal respiratory effort and able to speak in complete sentences Auscultation: clear to auscultation bilaterally Cardio Rate: regular rate Rhythm: regular rhythm Heart sounds: S1 normal heart sound present and S2 normal heart sound present GI Inspection: Yes obesity Palpation (GI): Soft to palpation, nontender, no guarding and no masses Auscultation: normal bowel sounds Back/Spine/Pelvis Cervical Spine: cervical ROM normal Thoracic/Lumbar Spine: thoracic and lumbar spine normal to inspection Skin General skin exam: no rashes or lesions noted Neuro General: patient oriented x3, tone normal, moves all extremities, Normal light touch and pain sensation and no focal motor deficits Cognition (Neuro): normal cognition Motor exam (neuro): 5/5 motor strength present throughout Sensory Exam: No Sensory deficit (Neuro) Extrem General: Yes full ROM, Yes no joint enlargement, Yes no pedal edema, Yes no calf tenderness and Yes normal gait Results Reviewed Results Reviewed: Laboratory Tests 05/13/23 11/08/23 11/08/23 07:18 07:38 07:40 Estimat Average Glucose 160 169 Hemoglobin A1c % 7.2 H 7.5 H Urine Creatinine 37.30 Urine Microalbumin 39.0 Microalb/Creat Ratio 104.5 H Name: Es Watters Age/Sex: 78/F : 1945 Unit#: [id number] Attend Dr: Candice Santoyo MD Re11/08/23 Status: DEP REF Location: [facility] Disch: SPEC : [id number] RAMANDEEP: 11/08/23 STATUS: COMP REQ : [id number] RECD: 11/08/23-[address]: Candice Santoyo MD COMP: 11/08/231153 ENTERED: 11/08/[address]: ORDERED: CMP Fast, Lipid Panel, Vitamin D 25-OH Test Result Flag Reference Sodium 139 135-145 mmol/L Potassium 4.1 3.3-5.1 mmol/L CL 103 96-108 mmol/L CO2 25 22-29 mmol/L Gap 15 12-20 BUN 22 H 9-16 mg/dL Creat 1.02 0.5-1.4 mg/dL EGFR 53 NOTE: For -[place] individuals, multiply the result by 1.210. Chronic Kidney Disease: Estimated GFR < 60 mL/min/1.73m2 Severe Kidney Disease: Estimated GFR < 15 mL/min/1.73m2 FBS 129 H 60-99 mg/dL A fasting glucose of 126 mg/dl or greater on more than one occasion is considered diagnostic of diabetes. CA 9.6 8.4-10.2 mg/dL Total Bili 0.5 0.0-1.0 mg/dL AST (GOT) 21 5-31 U/L ALT (GPT) 24 0-31 U/L Protein, Total 6.9 6.5-8.0 g/dL Alb 3.8 3.5-5.0 g/dL Triglyceride 135 <150 mg/dL Desirable Triglyceride: less than 150 mg/dL Borderline High Triglyceride 150-199 mg/dL High Triglyceride: 200-499 mg/dL Very High Triglyceride: greater than or equal to 5OO mg/dL Cholesterol 160 <200 mg/dL Desirable Cholesterol: less than 200 mg/dL Borderline High Cholesterol: 200-239 mg/dL High Cholesterol: greater than 239 mg/dL LDL Calculated 76 <100 mg/dL Desirable LDL: less than 100 mg/dL Near Optimal/Above Optimal LDL: 110-129 mg/dL Borderline High LDL: 130-159 mg/dL High LDL: 160-189 mg/dL Very High LDL: greater than or equal to 190 mg/dL HDL 57 >40 mg/dL Desirable HDL: greater than 40 mg/dL Note: This HDL assay may give artificially low results in patients with liver disease. Alk Phos 56 39-117 U/L Vit D 25-OH Tot 89.8 >30 ng/mL Health Based Reference Values* < 20 ng/mL Deficient 20-30 ng/mL Insufficient > 30 ng/mL Sufficient Assessment and Plan Assessment & Plan (1) Gait instability: Code(s): R26.81 - Unsteadiness on feet Plan: Referral to physical therapy for further evaluation management ordered (2) Diabetes mellitus with hyperglycemia, with long-term current use of insulin: Code(s): E11.65 - Type 2 diabetes mellitus with hyperglycemia; Z79.4 - [facility] (current) use of insulin Plan: Increase metformin dose to 1000 mg 1 tablet taken twice a day with meals, continued on her Lantus, Jardiance and repaglinide same dose. Reinforced importance of following recommended diet and getting regular exercise. Up-to-date with her diabetes retinopathy screening (3) Hx of fall: Code(s): Z91.81 - History of falling (4) Mixed dyslipidemia: Code(s): E78.2 - Mixed hyperlipidemia Plan: Continue with atorvastatin 20 mg daily and [place] 3 fatty acid supplements Orders: Orders PT Evaluation and Treatment 12/19/23 R26.81 - Unsteadiness on feet, Z91.81 - History of falling Lipid Panel 03/22/24 E11.22 - Type 2 diabetes mellitus with diabetic chronic kidney disease, E11.29 - Type 2 diabetes mellitus with other diabetic kidney complication, E11.65 - Type 2 diabetes mellitus with hyperglycemia, E78.2 - Mixed hyperlipidemia, N18.30 - Chronic kidney disease, stage 3 unspecified, R80.9 - Proteinuria, unspecified, Z79.4 - 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 (current) use of insulin Aspartate Amino Transferase 03/22/24 E11.22 - Type 2 diabetes mellitus with diabetic chronic kidney disease, E11.29 - Type 2 diabetes mellitus with other diabetic kidney complication, E11.65 - Type 2 diabetes mellitus with hyperglycemia, E78.2 - Mixed hyperlipidemia, N18.30 - Chronic kidney disease, stage 3 unspecified, R80.9 - Proteinuria, unspecified, Z79.4 - 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 (current) use of insulin Vitamin D 25-OH Total 03/22/24 E11.22 - Type 2 diabetes mellitus with diabetic chronic kidney disease, E11.29 - Type 2 diabetes mellitus with other diabetic kidney complication, E11.65 - Type 2 diabetes mellitus with hyperglycemia, E78.2 - Mixed hyperlipidemia, N18.30 - Chronic kidney disease, stage 3 unspecified, R80.9 - Proteinuria, unspecified, Z79.4 - [facility] (current) use of insulin Hemoglobin A1c 03/22/24 E11.22 - Type 2 diabetes mellitus with diabetic chronic kidney disease, E11.29 - Type 2 diabetes mellitus with other diabetic kidney complication, E11.65 - Type 2 diabetes mellitus with hyperglycemia, E78.2 - Mixed hyperlipidemia, N18.30 - Chronic kidney disease, stage 3 unspecified, R80.9 - Proteinuria, unspecified, Z79.4 - 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 (current) use of insulin Alanine Aminotransferase 03/22/24 E11.22 - Type 2 diabetes mellitus with diabetic chronic kidney disease, E11.29 - Type 2 diabetes mellitus with other diabetic kidney complication, E11.65 - Type 2 diabetes mellitus with hyperglycemia, E78.2 - Mixed hyperlipidemia, N18.30 - Chronic kidney disease, stage 3 unspecified, R80.9 - Proteinuria, unspecified, Z79.4 - 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 (current) use of insulin Basic Metabolic Panel Fasting 03/22/24 E11.22 - Type 2 diabetes mellitus with diabetic chronic kidney disease, E11.29 - Type 2 diabetes mellitus with other diabetic kidney complication, E11.65 - Type 2 diabetes mellitus with hyperglycemia, E78.2 - Mixed hyperlipidemia, N18.30 - Chronic kidney disease, stage 3 unspecified, R80.9 - Proteinuria, unspecified, Z79.4 - [facility] (current) use of insulin Medications: New metformin 1,000 mg PO BIDWMEAL 3 months 180 tabs 3RF Coding Level of Care Code Est Pt Level 4 (44767) Complex EM visit Add On G2211 Diagnoses Gait instability R26.81 Diabetes mellitus with hyperglycemia, with long-term current use of insulin E11.65; Z79.4 Hx of fall Z91.81 Mixed dyslipidemia E78.2
[2023-12-19 15:51] VITALS: BP 140/80; PULSE 89; O2SAT 98; BMI 56.5
== END 2023-12-19 16:22 | disposition home or self-care (01) ==
PROVIDERS: PCP Internal Medicine; Visit Provider Internal Medicine
DX: R26.81 Unsteadiness on feet (principal); E11.65 Type 2 diabetes mellitus with hyperglycemia; Z79.4 Long term (current) use of insulin; Z91.81 History of falling; E78.2 Mixed hyperlipidemia
CPT/HCPCS: 99214; G2211

== ENCOUNTER 2024-04-10 06:49 | Outpatient (REF) | payer MEDICARE, SELFPAY ==
[2024-04-10 10:31] LABS: Alanine Aminotransferase 29 U/L (0-31); Anion Gap 11 (12-20); Aspartate Amino Transferase 24 U/L (5-31); Blood Urea Nitrogen 22 mg/dL (9-16); Calcium 9.7 mg/dL (8.4-10.2); Carbon Dioxide 28 mmol/L (22-29); Chloride 102 mmol/L (96-108); Cholesterol 163 mg/dL (<200); Estimated Glomerular Filt Rate 57; Glucose Fasting 124 mg/dL (60-99); HDL Cholesterol 52 mg/dL (>40); LDL Cholesterol Calculated 76 mg/dL (<100); Potassium 4.2 mmol/L (3.3-5.1); Sodium 137 mmol/L (135-145); Triglycerides 176 mg/dL (<150)
[2024-04-10 10:55] LABS: Vitamin D 25-OH Total 101.6 ng/mL (>30)
[2024-04-10 11:01] LABS: Estimated Average Glucose 154 mg/dL
== END 2024-04-10 06:50 | disposition home or self-care (01) ==
LOC: HO.HMGCLDS 06:49
PROVIDERS: PCP Internal Medicine; Visit Provider Internal Medicine
DX: E11.65 Type 2 diabetes mellitus with hyperglycemia (principal); Z79.4 Long term (current) use of insulin; E11.22 Type 2 diabetes mellitus with diabetic chronic kidney disease; N18.30 Chronic kidney disease, stage 3 unspecified; E78.2 Mixed hyperlipidemia; E11.29 Type 2 diabetes mellitus with other diabetic kidney complication; R80.9 Proteinuria, unspecified
CPT/HCPCS: 36415; 80048; 80061; 82306; 83036; 84450; 84460

== ENCOUNTER 2024-04-16 14:37 | Outpatient (AMB) | payer MEDICARE, SELFPAY ==
--- NOTE | 2024-04-16 15:00 | A.OFFPC_ITS ---
Vital Signs 04/16/24 15:01 Height 4 ft 2 in Weight 202 lb BMI 56.8 BP 135/70 Blood Pressure Location Rt brachial Position Sitting Pulse 69 Pulse Source Pulse Oximeter Pulse Oximetry (%) 97 Oxygen Delivery Method Room Air Intake Visit Reasons: 4 month fu diabetics Intake Note: Pt is here today for her 4mo. f/u DM Allergies No Known Allergies [No Known Allergies*] Allergy (Verified 04/18/24 02:20) Medication List - Last Reconciled 04/18/24 by Candice Santoyo MD acetaminophen ER (Tylenol Arthritis Pain) 650 mg PO Q12H amlodipine 10 mg PO DAILY atenolol 150 mg (1.5 x 100 mg) PO DAILY 90 days atorvastatin 20 mg PO DAILY blood sugar diagnostic ([employer] Verio test strips) Three times a day blood-glucose meter (Human[employer]ITouch Verio Meter) As directed calcium citrate-vitamin D3 315 mg-6.25 mcg (250 unit) (Citracal + Vitamin D Maximum) 1 tab PO DAILY cranberry extract 250 mg PO DAILY empagliflozin (Jardiance) 25 mg PO DAILY flaxseed oil 1,000 mg PO BID insulin glargine (Lantus Solostar U-100 Insulin) 50 units (0.5 mL) subcut QAM lancets Check blood sugar 3 times a day before meals topical 3 times a day lisinopril 30 mg PO DAILY metformin 1,000 mg PO BIDWMEAL 3 months multivitamin with minerals 1 cap PO DAILY omega 7-lrd-hbs-fish oil 1,200 (144-216) mg (Fish Oil) caps PO pen needle, diabetic (BD Ultra-Fine Short Pen Needle) Use daily as directed subcut daily; repaglinide 2 mg PO TID 30 days Tobacco use date assessed: 04/16/24 Fall risk assessment: 1 Fall in past year Last assessed Fall Risk: 04/16/24 Dental Screening Dental Screen Date: 04/16/24 Did you have a dental visit in the last 12 months?: No Did you have a dental problem in the last 6 months where you did not have access to dental care?: No Was dental information given to patient?: Patient declined HPI 4 month fu diabetics HPI Details 78-year-old lady with hypertension, diab etes mellitus, hyperlipidemia, here today for her follow-up. She has been compliant with taking her medications, and has adjusted her diet, cutting back on her bedtime snack scan tries to walk every day during her lunch time. She has been feeling well, with no complaints at present time. She sees Dr. Carbajal, is up-to-date with her diabetes retinopathy screening, with no retinopathy seen. [facility] Medical History (Updated 04/16/24 @ 15:40 by Candice Santoyo MD) Surgical menopause Gait instability Papanicolaou smear declined Colonoscopy refused Obesity due to excess calories Type 2 diabetes mellitus with chronic kidney disease Mixed dyslipidemia Essential hypertension DUB (dysfunctional uterine bleeding) CKD stage 3 secondary to diabetes Diabetes mellitus with microalbuminuria, with long-term current use of insulin Mammogram declined Diabetes mellitus with hyperglycemia, with long-term current use of insulin Surgical History Hx of hysterectomy S/P LOLIS-BSO Family History Father CAD (coronary artery disease) Mother Diabetes mellitus Lung cancer Sister Diabetes mellitus Social History Household Members: None Housing: House Alcohol intake: never Patient Tobacco Use Status: Former Tobacco user Years Smoked: 14 yrs e-Cigarette/Vaping Use: Never Used service: No Current occupational status: employed Cognitive needs: No Hearing needs: No Vision needs: Yes Questionnaire PHQ-9 Over the last 2 weeks, how often have you been bothered by any of the following problems? 1. Little interest or pleasure in doing things: not at all 2. Feeling down, depressed, or hopeless: not at all 3. Trouble falling or staying asleep, or sleeping too much: not at all 4. Feeling tired or having little energy: not at all 5. Poor appetite or overeating: not at all 6. Feeling bad about yourself - or that you are a failure or have let yourself or your family down: not at all 7. Trouble concentrating on things, such as reading the newspaper or watching television: not at all 8. Moving or speaking so slowly that other people could have noticed. Or the opposite - being so fidgety or restless that you have been moving around a lot more than usual: not at all 9. Thoughts that you would be better off or of hurting yourself in some way: not at all Total score: 0 Depression Screening Interpretation: Negative Depression Screening Done: Yes 13735 - PHQ-9 Billing: Yes Source: Developed by Drs. Ike Michelle, Gege Mary, David Borges and colleagues, with an educational shea from [employer]. Thrive Questionnaire Date Thrive assessed: 04/16/24 I am a: Patient What is your living situation today?: I have a steady place to live Within the past 12 months, did the food you bought not last and you didn't have the money to get more?: Never true Within the past 12 months, did you worry whether your food would run out before you got money to buy more?: Never true Do you have trouble paying for medicines?: No Do you have trouble getting transportation to medical appointments?: No Do you have trouble paying your heating and electricity bill?: No Do you have trouble taking care of your child, family member or friend?: No Do you have trouble with day-to-day activities such as bathing, preparing meals, shopping, managing finances, etc.?: No Are you interested in more education?: No Please select the resources that you would like help with: None Currently or been in a relationship where the following occur: No concerns reported THRIVE Score: 0 AUDIT C Alcohol Use Questionnaire (AUDIT-C) 1. How often do you have a drink containing alcohol?: Never Total Score: 0 JOSH-7 AMB Questionnaire JOSH-7 Date JOSH - 7 assessed: 04/16/24 Feeling nervous, anxious, or on edge: 0 = Not at all Not being able to stop or control worryin = Not at all Worrying too much about different things: 0 = Not at all Trouble relaxin = Not at all Being so restless that it is hard to sit still: 0 = Not at all Becoming easily annoyed or irritable: 0 = Not at all Feeling afraid as if something awful might happen: 0 = Not at all Total JOSH-7 score (0-4 normal; 5-9 mild; 10-14 moderate; 15-21 severe): 0 Source: Developed by Drs. Ike Michelle, David Rayanke and colleagues, with an educational shea from [employer]. JOSH-7 Assessment Billing JOSH-7 Assessment Tool: JOSH-7 Assessment 86240 Review of Systems Const Denies body aches, Denies fatigue, Denies headache(s) and Denies malaise Eyes Details: Sees Dr. Carbajal yearly Denies itchy eyes ENT Reports no additional complaints, Denies vertigo, Denies dizziness and Denies headache(s) Card Denies palpitations and Denies dyspnea Resp Denies cough and Denies dyspnea GI Denies abdominal pain, Denies melena, Denies hematochezia, Denies change in bowel habits and Denies heartburn Denies hematuria, Denies urinary frequency, Denies dysuria and Reports urinary incontinence (occasional) Musc Denies muscle weakness, Denies numbness, Reports stiffness and Denies tingling Skin/Breast Denies breast pain, Denies breast mass and Denies rash Neuro Denies vertigo, Denies dizziness, Denies headache(s), Denies focal weakness, Denies numbness, Denies Sensory deficit (Neuro), Denies tingling and Denies paresthesias Psych Denies depression Endo Denies fatigue, Denies polydipsia, Reports polyuria and Denies palpitations Obi/Lymph Denies easy bruising Aller/Immun Denies urticaria, Denies itchy eyes and Denies seasonal rhinorrhea Physical exam (Primary Care) Vital Signs: Last Vital Signs Pulse 69 04/16/24 15:01 BP 135/70 04/16/24 15:01 Pulse Ox 97 04/16/24 15:01 Oxygen Delivery Method Room Air 04/16/24 15:01 BMI result Body Mass Index 56.8 BMI Assessment/Plan discussion: High BMI High, discussed plan: lifestyle, weight reduction, dietary and physical activity Tobacco/Smoking Status: Tobacco use Status Tobacco use date assessed 04/16/24 04/16/24 15:02 Patient Tobacco Use Status Former Tobacco user 04/16/24 15:02 e-Cigarette/Vaping Use Never Used 04/16/24 15:02 PHQ-9: PHQ-9 Score PHQ-9: Total score 0 04/18/24 02:20 Depression Screening Interpretation: Negative Thrive Assessment: Date of Thrive Assessment Date Thrive assessed 04/16/24 04/16/24 15:02 Currently or been in a relationship where the following occur: No concerns re ported Const General: comfortable and no acute distress Nutritional Appearance: obese morbidly obese Orientation/consciousness: patient oriented x3 HENMT Ears: external ears normal General nose exam: Normal external nose present Mouth: Normal oral and palatal mucosa present, oropharynx normal and moist mucous membranes Eyes General: appearance normal, both eyes and all related structures Neck Neck: Yes full ROM, Yes no lymphadenopathy and Yes supple Resp Effort & Inspection: normal respiratory effort and able to speak in complete sentences Auscultation: clear to auscultation bilaterally Cardio Rate: regular rate Rhythm: regular rhythm Heart sounds: S1 normal heart sound present and S2 normal heart sound present GI Inspection: Yes obesity Palpation (GI): Soft to palpation, nontender, no guarding and no masses Auscultation: normal bowel sounds Back/Spine/Pelvis Cervical Spine: cervical ROM normal Thoracic/Lumbar Spine: thoracic and lumbar spine normal to inspection Skin General skin exam: no rashes or lesions noted Neuro General: patient oriented x3, tone normal, moves all extremities, Normal light touch and pain sensation and no focal motor deficits Cognition (Neuro): normal cognition Motor exam (neuro): 5/5 motor strength present throughout Sensory Exam: No Sensory deficit (Neuro) Extrem General: Yes full ROM, Yes no joint enlargement, Yes no pedal edema, Yes no calf tenderness and Yes normal gait Results Reviewed Results Reviewed: Laboratory Tests 11/08/23 04/10/24 07:40 06:52 Estimat Average Glucose 154 Hemoglobin A1c % 7.0 H Urine Creatinine 37.30 Urine Microalbumin 39.0 Microalb/Creat Ratio 104.5 H rocio: Es Watters Age/Sex: 78/F : 1945 Unit#: [id number] Attend Dr: Candice Santoyo MD Re04/10/24 Status: DEP REF Location: [facility] Disch: SPEC : [id number] RAMANDEEP: 04/10/24 STATUS: COMP REQ : [id number] RECD: 04/10/[address]: Candice Santoyo MD COMP: 04/10/24 ENTERED: 04/10/[address]: ORDERED: Met Prof Fast, AST, ALT, Lipid Panel, Vitamin D 25-OH Test Result Flag Reference Sodium 137 135-145 mmol/L Potassium 4.2 3.3-5.1 mmol/L CL 102 96-108 mmol/L CO2 28 22-29 mmol/L Gap 11 L 12-20 BUN 22 H 9-16 mg/dL Creat 0.96 0.5-1.4 mg/dL EGFR 57 NOTE: For -Slovak individuals, multiply the result by 1.210. Chronic Kidney Disease: Estimated GFR < 60 mL/min/1.73m2 Severe Kidney Disease: Estimated GFR < 15 mL/min/1.73m2 FBS 124 H 60-99 mg/dL A fasting glucose from 100-125 mg/dl is considered impaired (pre-diabetes). CA 9.7 8.4-10.2 mg/dL AST (GOT) 24 5-31 U/L ALT (GPT) 29 0-31 U/L Triglyceride 176 H <150 mg/dL Desirable Triglyceride: less than 150 mg/dL Borderline High Triglyceride 150-199 mg/dL High Triglyceride: 200-499 mg/dL Very High Triglyceride: greater than or equal to 5OO mg/dL Cholesterol 163 <200 mg/dL Desirable Cholesterol: less than 200 mg/dL Borderline High Cholesterol: 200-239 mg/dL High Cholesterol: greater than 239 mg/dL LDL Calculated 76 <100 mg/dL Desirable LDL: less than 100 mg/dL Near Optimal/Above Optimal LDL: 110-129 mg/dL Borderline High LDL: 130-159 mg/dL High LDL: 160-189 mg/dL Very High LDL: greater than or equal to 190 mg/dL HDL 52 >40 mg/dL Desirable HDL: greater than 40 mg/dL Note: This HDL assay may give artificially low results in patients with liver disease. Vit D 25-OH Tot 101.6 >30 ng/mL Health Based Reference Values* < 20 ng/mL Deficient 20-30 ng/mL Insufficient > 30 ng/mL Sufficient Assessment and Plan Assessment & Plan (1) Postmenopausal status: Code(s): Z78.0 - Asymptomatic menopausal state Plan: Bone density scan ordered today to screen for osteoporosis. Continue with taking adequate calcium from dietary sources, and vitamin D3 at least 2000 units daily. Together with regular weight-bearing exercise. (2) Surgical menopause: Code(s): E89.40 - Asymptomatic postprocedural ovarian failure Plan: Screening for osteoporosis, bone density scan ordered (3) Mammogram declined: Code(s): Z53.20 - Procedure and treatment not carried out because of patient's decision for unspecified reasons Plan: Patient does not want to get screening mammograms (4) Essential hypertension: Code(s): I10 - Essential (primary) hypertension Plan: Blood pressure at goal of less than 130/80. Continue with current medication. Reinforced importance of following a low sodium diet, getting regular exercise, and lowering stress levels. (5) Mixed dyslipidemia: Code(s): E78.2 - Mixed hyperlipidemia Plan: , latest fasting lipids are within normal limits, continued on Bixby 3 fatty acid supplements and atorvastatin 20 mg daily. Reinforced importance of following a low-cholesterol diet and getting regular exercise. (6) Type 2 diabetes mellitus with chronic kidney disease: Code(s): E11.22 - Type 2 diabetes mellitus with diabetic chronic kidney disease Qualifiers: Chronic kidney disease stage: stage 3 (moderate) Chronic kidney disease stage 3 subtype: unspecified whether 3a or 3b Diabetes mellitus intermission coordinator insulin use: without intermission coordinator use Qualified Code(s): E11.22 - Type 2 diabetes mellitus with diabetic chronic kidney disease; N18.30 - Chronic kidney disease, stage 3 unspecified Plan: Continued on Jardiance, Lantus insulin, metformin and repaglinide. Reinforced importance of continuing to follow recommended diet and getting regular exercise. Your back for follow-up in six-month Orders: Orders Hemoglobin A1c 09/19/24 E11.22 - Type 2 diabetes mellitus with diabetic chronic kidney disease, E78.2 - Mixed hyperlipidemia, E89.40 - Asymptomatic postprocedural ovarian failure, I10 - Essential (primary) hypertension, N18.30 - Chronic kidney disease, stage 3 unspecified, Z53.20 - Procedure and treatment not carried out because of patient's decision for unspecified reasons Microalbumin, Random (w Creat) 09/19/24 E11.22 - Type 2 diabetes mellitus with diabetic chronic kidney disease, E78.2 - Mixed hyperlipidemia, E89.40 - Asymptomatic postprocedural ovarian failure, I10 - Essential (primary) hypertension, N18.30 - Chronic kidney disease, stage 3 unspecified, Z53.20 - Procedure and treatment not carried out because of patient's decision for unspecified reasons Basic Metabolic Panel Fasting 09/19/24 E11.22 - Type 2 diabetes mellitus with diabetic chronic kidney disease, E78.2 - Mixed hyperlipidemia, E89.40 - Asymptomatic postprocedural ovarian failure, I10 - Essential (primary) hypertension, N18.30 - Chronic kidney disease, stage 3 unspecified, Z53.20 - Procedure and treatment not carried out because of patient's decision for unspecified reasons Vitamin D 25-OH Total 09/19/24 E11.22 - Type 2 diabetes mellitus with diabetic chronic kidney disease, E78.2 - Mixed hyperlipidemia, E89.40 - Asymptomatic postprocedural ovarian failure, I10 - Essential (primary) hypertension, N18.30 - Chronic kidney disease, stage 3 unspecified, Z53.20 - Procedure and treatment not carried out because of patient's decision for unspecified reasons XR DEXA axial skeleton 04/16/24 E89.40 - Asymptomatic postprocedural ovarian failure, Z78.0 - Asymptomatic menopausal state Lipid Panel 09/19/24 E11.22 - Type 2 diabetes mellitus with diabetic chronic kidney disease, E78.2 - Mixed hyperlipidemia, E89.40 - Asymptomatic postprocedural ovarian failure, I10 - Essential (primary) hypertension, N18.30 - Chronic kidney disease, stage 3 unspecified, Z53.20 - Procedure and treatment not carried out because of patient's decision for unspecified reasons Alanine Aminotransferase 09/19/24 E11.22 - Type 2 diabetes mellitus with diabetic chronic kidney disease, E78.2 - Mixed hyperlipidemia, E89.40 - Asymptomatic postprocedural ovarian failure, I10 - Essential (primary) hypertension, N18.30 - Chronic kidney disease, stage 3 unspecified, Z53.20 - Procedure and treatment not carried out because of patient's decision for unspecified reasons Aspartate Amino Transferase 09/19/24 E11.22 - Type 2 diabetes mellitus with diabetic chronic kidney disease, E78.2 - Mixed hyperlipidemia, E89.40 - Asymptomatic postprocedural ovarian failure, I10 - Essential (primary) h ypertension, N18.30 - Chronic kidney disease, stage 3 unspecified, Z53.20 - Procedure and treatment not carried out because of patient's decision for unspecified reasons Coding Level of Care Code Est Pt Level 4 (28833) Complex EM visit Add On G2211 Diagnoses Postmenopausal status Z78.0 Surgical menopause E89.40 Mammogram declined Z53.20 Essential hypertension I10 Mixed dyslipidemia E78.2 Type 2 diabetes mellitus with stage 3 chronic kidney disease, without long-term current use of insulin, unspecified whether stage 3a or 3b CKD E11.22; N18.30 Chronic kidney disease stage: stage 3 (moderate) Chronic kidney disease stage 3 subtype: unspecified whether 3a or 3b Diabetes mellitus correction insulin use: without intermission coordinator use Additional Codes JOSH-7 Assessment Billing - JOSH-7 Assessment Tool: JOSH-7 Assessment 77660 ([id number])
[2024-04-16 15:01] VITALS: BP 135/70; PULSE 69; O2SAT 97; BMI 56.8
== END 2024-04-16 15:49 | disposition home or self-care (01) ==
PROVIDERS: PCP Internal Medicine; Visit Provider Internal Medicine
DX: E11.22 Type 2 diabetes mellitus with diabetic chronic kidney disease (principal); N18.30 Chronic kidney disease, stage 3 unspecified; Z78.0 Asymptomatic menopausal state; E89.40 Asymptomatic postprocedural ovarian failure; Z53.20 Procedure and treatment not carried out because of patient's decision for unspecified reasons; I10 Essential (primary) hypertension; E78.2 Mixed hyperlipidemia

== ENCOUNTER → 2024-04-16 14:37 | Outpatient (BNVA) | payer MEDICARE, SELFPAY | PROVIDERS: PCP Internal Medicine; Visit Provider Internal Medicine | DX: E89.40 Asymptomatic postprocedural ovarian failure (principal); E78.2 Mixed hyperlipidemia; I12.9 Hypertensive chronic kidney disease with stage 1 through stage 4 chronic kidney disease, or unspecified chronic kidney disease; E11.22 Type 2 diabetes mellitus with diabetic chronic kidney disease; N18.30 Chronic kidney disease, stage 3 unspecified; Z78.0 Asymptomatic menopausal state | CPT/HCPCS: 96127; 99212 ==

== ENCOUNTER 2024-05-14 13:50 | Outpatient (AMB) | payer MEDICARE, SELFPAY ==
--- NOTE | 2024-05-14 14:14 | HO.NEPHOV ---
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: No Accompanied by: Self / Same As Patient Allergies No Known Allergies [No Known Allergies*] Allergy (Verified 05/14/24 14:17) Medication List - Last Reconciled 05/14/24 by Chay Dominique MD acetaminophen ER (Tylenol Arthritis Pain) 650 mg PO Q12H amlodipine 10 mg PO DAILY atenolol 150 mg (1.5 x 100 mg) PO DAILY 90 days atorvastatin 20 mg PO DAILY blood sugar diagnostic ([employer] Verio test strips) Three times a day blood-glucose meter (S[employer]xantTouch Verio Meter) As directed calcium citrate-vitamin D3 315 mg-6.25 mcg (250 unit) (Citracal + Vitamin D Maximum) 1 tab PO DAILY cranberry extract 250 mg PO DAILY empagliflozin (Jardiance) 25 mg PO DAILY flaxseed oil 1,000 mg PO BID insulin glargine (Lantus Solostar U-100 Insulin) 50 units (0.5 mL) subcut QAM lancets Check blood sugar 3 times a day before meals topical 3 times a day lisinopril 30 mg PO DAILY metformin 1,000 mg PO BIDWMEAL 3 months multivitamin with minerals 1 cap PO DAILY omega 4-qbs-fam-fish oil 1,200 (144-216) mg (Fish Oil) caps PO pen needle, diabetic (BD Ultra-Fine Short Pen Needle) Use daily as directed subcut daily; repaglinide 2 mg PO TID 30 days HPI Comments Details: Erica is a elderly woman with his obesity and hypertension with minimal proteinuria. She is here for same and will follow-up. Recently had a fall. This was accidental no lightheadedness. 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 mellitus with microalbuminuria, with long-term current use of insulin Mammogram declined Diabetes mellitus with hyperglycemia, with long-term current use of insulin Surgical History Hx of hysterectomy S/P LOLIS-BSO Family History Father CAD (coronary artery disease) Mother Diabetes mellitus Lung cancer Sister Diabetes mellitus Social History Household Members: None Housing: House Alcohol intake: never Patient Tobacco Use Status: Former Tobacco user Years Smoked: 14 yrs e-Cigarette/Vaping Use: Never Used service: No Current occupational status: employed Cognitive needs: No Hearing needs: No Vision needs: Yes Physical Exam Awake. Comfortable. Neck is supple. Mucosa moist. Lungs bilateral scattered rhonchi. Heart S1-S2 heard no gallop. Abdomen soft. Extremities no edema. No involuntary movements. No myoclonus. Results Reviewed Nephrology Results: Sodium 137 mmol/L (135-145) 04/10/24 Potassium 4.2 mmol/L (3.3-5.1) 04/10/24 Chloride 102 mmol/L (96-108) 04/10/24 Carbon Dioxide 28 mmol/L (22-29) 04/10/24 BUN 22 mg/dL (9-16) H 04/10/24 Creatinine 0.96 mg/dL (0.5-1.4) 04/10/24 Calcium 9.7 mg/dL (8.4-10.2) 04/10/24 Urine Creatinine 37.30 mg/dL 11/08/23 Assessment & Plan Assessment & Plan (1) Type 2 diabetes mellitus with chronic kidney disease: Code(s): E11.22 - Type 2 diabetes mellitus with diabetic chronic kidney disease Category: Medical Qualifiers: Diabetes mellitus shelter insulin use: without shelter use Chronic kidney disease stage: stage 3 (moderate) Chronic kidney disease stage 3 subtype: unspecified whether 3a or 3b Qualified Code(s): E11.22 - Type 2 diabetes mellitus with diabetic chronic kidney disease; N18.30 - Chronic kidney disease, stage 3 unspecified Plan: Goals of maintain the hemoglobin A1c less than 7%. The A1c is gradually trending down. I have increased her to monitor her diet and try to achieve a hemoglobin A1c of less than 7%. She will also benefit from weight loss. (2) Essential hypertension: Code(s): I10 - Essential (primary) hypertension Category: Medical Plan: Blood pressure is acceptable today. Increase fluids and stay on low-sodium diet. She should lose weight. Encouraged to monitoring of blood pressure at home as well (3) Proteinuria: Code(s): R80.9 - Proteinuria, unspecified Category: Medical Qualifiers: Proteinuria type: unspecified Qualified Code(s): R80.9 - Proteinuria, unspecified Plan Edema_ Chronic- asymptomatic Amlodipine could be contributing. Orders: Orders Total Protein Urine Random 6 Months R80.9 - Proteinuria, unspecified Creatinine Urine 6 Months R80.9 - Proteinuria, unspecified Basic Metabolic Panel 6 Months R80.9 - Proteinuria, unspecified UA and rflx microscopic 6 Months R80.9 - Proteinuria, unspecified Coding Level of Care Code Est Pt Level 4 (52790) Diagnoses Type 2 diabetes mellitus with stage 3 chronic kidney disease, without long-term current use of insulin, unspecified whether stage 3a or 3b CKD E11.22; N18.30 Diabetes mellitus shelter insulin use: without shelter use Chronic kidney disease stage: stage 3 (moderate) Chronic kidney disease stage 3 subtype: unspecified whether 3a or 3b Essential hypertension I10 Proteinuria, unspecified type R80.9 Proteinuria type: unspecified
[2024-05-14 14:15] VITALS: BP 124/58; PULSE 83; O2SAT 93; BMI 56.8
== END 2024-05-14 14:28 | disposition home or self-care (01) ==
PROVIDERS: PCP Internal Medicine; Visit Provider Internal Medicine Hypertension Specialist
DX: I12.9 Hypertensive chronic kidney disease with stage 1 through stage 4 chronic kidney disease, or unspecified chronic kidney disease (principal); E11.22 Type 2 diabetes mellitus with diabetic chronic kidney disease; N18.30 Chronic kidney disease, stage 3 unspecified; R80.9 Proteinuria, unspecified
CPT/HCPCS: 99214

== ENCOUNTER → 2024-05-14 13:50 | Outpatient (BNVA) | payer MEDICARE, SELFPAY | PROVIDERS: PCP Internal Medicine; Visit Provider Internal Medicine Hypertension Specialist | DX: E11.22 Type 2 diabetes mellitus with diabetic chronic kidney disease (principal); I12.9 Hypertensive chronic kidney disease with stage 1 through stage 4 chronic kidney disease, or unspecified chronic kidney disease; N18.30 Chronic kidney disease, stage 3 unspecified; E66.9 Obesity, unspecified; R80.9 Proteinuria, unspecified | CPT/HCPCS: 99212 ==

== ENCOUNTER 2024-05-28 12:30 | Outpatient (REF) | payer MEDICARE, SELFPAY ==
--- NOTE | ~2024-05-28 | MM_ITS ---
EXAMINATION: BONE DENSITOMETRY CLINICAL INDICATION: Menopause. COMPARISON: Previous BD dated 06/02/2019 and baseline BD dated 05/30/2017. TECHNIQUE: Using a PT [employer] DXA System (software version: 13.1) manufactured by [employer], dual-energy x-ray absorptiometry was performed of the lumbar spine and left hip. The images are of good technical quality. Summary results are attached. FINDINGS: LEFT FEMUR, NECK: Current: BMD 1.022 g/cm2, Z-score 1.3, T-score -0.1, normal. Prior: BMD 0.978 g/cm2. Baseline: BMD 0.877 g/cm2. LEFT FEMUR, TOTAL: Current: BMD 1.122 g/cm2, Z-score 2.1, T-score 0.9, normal, 1.8% decrease from previous, 1.9% decrease from baseline (<5% change is not significant). Prior: BMD 1.142 g/cm2. Baseline: BMD 1.144 g/cm2. AP SPINE L1-L4: Current: BMD 1.592 g/cm2, Z-score 4.4, T-score 3.4, normal, 0.8% increase from previous, 0.5% decrease from baseline (<5% change is not significant). Prior: BMD 1.579 g/cm2. Baseline: BMD 1.600 g/cm2. IDENTIFIED RISK FACTORS: Menopause, hysterectomy, bilateral oophorectomy. HISTORY OF FRACTURE: None listed. MEDICATIONS: Calcium or multivitamin. Vitamin D. MM/XR DEXA axial skeleton IMPRESSION: 1. DIAGNOSIS: Normal bone density based on the lowest T-score value of -0.1 in the femoral neck applying World Health Organization criteria. 2. 10-YEAR FRACTURE RISK PREDICTION, FRAX: According to the guidelines, FRAX calculation should only be performed on patients in the osteopenia bone density category. Therefore, FRAX was not performed on this patient. 3. Treatment Recommendations: NOF guidelines recommend consideration for treatment in postmenopausal women and men age 50 and older presenting with the following: -A hip or vertebral (clinical or morphometric) fracture. -T-score less than or equal to -2.5 at the femoral neck or spine after appropriate evaluation to exclude secondary causes. -Low bone mass at the hip or spine and a 10-year fracture probability by FRAX of greater than or equal to 3% for hip fracture or greater than or equal to 20% for major osteoporotic fracture based on the [place] adapted WHO algorithm. 4. Other Recommendations: All treatment decisions require clinical judgment and consideration of individual patient factors, including patient preferences, comorbidities, previous drug use, risk factors not captured in the FRAX model (e.g. frailty, falls, vitamin D deficiency, increased bone turnover, interval significant decline in bone density) and possible under or overestimation of fracture risk by FRAX. FUTURE SCAN RECOMMENDATION: People with diagnosed cases of osteoporosis or at high risk for fracture should have regular bone mineral density tests. For patients eligible for Medicare, routine testing is allowed once every 2 years. The testing frequency can be increased to one year for patients who have rapidly progressing disease, those who are receiving or discontinuing medical therapy to restore bone mass, or have additional risk factors. Electronically signed by: Katie Starks MD 06/08/2024 05:31 PM DONNIE LANDIN
== END 2024-05-28 12:31 | disposition home or self-care (01) ==
LOC: HO.MAMMO 12:30
PROVIDERS: PCP Internal Medicine; Visit Provider Internal Medicine
DX: Z78.0 Asymptomatic menopausal state (principal); E89.40 Asymptomatic postprocedural ovarian failure
CPT/HCPCS: 77080

== ENCOUNTER 2024-10-08 07:36 | Outpatient (REF) | payer MEDICARE, SELFPAY ==
--- OUTSIDE RECORDS SUMMARY | 2024-10-08 07:39 | XMS_ITS ---
Author Organization [facility] Address [address] [place] [address] Care Team Providers [facility] Psychiatrist Name Role Phone Natanael CLEMENT, Candice Esquivel Primary Care Provider Un available Black, June Unavailable [phone] Allergies No Known Allergies REASON FOR VISIT At Risk Footcare Medications Medication SIG (Take, Route, Frequency, Duration) Notes Start Date End Date Status Aspirin 81 MG Orally Not-Ta prabha Atenolol 50 MG 3 tablet Orally Once a day Not-Taking BD Pen Needle Short U/F Not-Taking Lisinopril-hydroCHLOROth iazide Not-Taking Norvasc 2.5 MG 1 tablet Orally Once a day Not-Taking Flaxseed Oil 1000 MG as directed Orally Active zzzCompression Stockings 20-30mm Hg . . . for . Not-Taking Atenolol 150 Once a day Active Januvia 100 MG 1 tablet Orally Once a day for 30 day(s) Not-Taking Trulicity 1.5 MG/0.5ML as directed Subcutaneous once weekly Not-Taking Citracal + D Active Cranberry 250 MG as directed Orally Active amLODIPine Besylate 10 MG 1 tablet Orally Once a day Active Tylenol 325 MG 1 tablet as needed Orally every 6 hrs Active vitamin Active Lantus 100 UNIT/ML 45 units Subcutaneous Active Fish Oil 1200 MG as directed Orally 2x a day Active Atorvastatin Calcium 20 MG 1 tablet Orally Once a day for 30 day(s) Active Lisinopril 30 MG 1 tablet Orally Once a day Active Jardiance 25 MG 1 tablet Orally Once a day Active Repaglinide 2 MG 1 tablet 15 to 30 minutes before meals Orally Once a day Active metFORMIN HCl 1000 MG 1 tablet with a me al Orally Once a day Active Multivitamin - 1 tablet Orally Once a day Active Social History Tobacco Use: Social History Observation Description Date Details (start date - stop date) Former Smoker NA - NA Tobacco Use/Smoking Question Answer Notes Are you a: former smoker How long has it been since you last smoked? < 1 month Additional Findings: Tobacco Non-User Current no n-smoker Alcohol Screen Question Answer Notes Did you have a drink containing alcohol in the p ast year? No Points 0 Interpretation Negative Tobacco use other than smoking: Question Answer Notes Are you an other tobacco user? No Vital Signs Height 4ft 10in in 04/30/2024 Weight 202 lbs 04/30/2024 BMI 42.21 kg/m2 04/30/2024 Blood pressure systolic 146 mm Hg 04/30/20 24 Blood pressure diastolic 70 mm Hg 024 Procedures Procedure Date Ordered Date Performed Result Body Sit e 69472-DSMB SKIN LESIONS, OVER 4 04/30/2024 N/A [id number] DYSTROPHIC NAILS ANY # 04/30/2024 N/A Encounters Encounter Location Date Provider Diagnosis [facility] [place] [address] [place] [address] 04/30/2024 June Hinojosa Type 2 diabetes mellitus with diabetic polyneuropathy E11.42 Assessments Encounter Date Diagnosis (ICD Code) Assessment Notes Treatment Notes Treatment Clinical Notes Section Notes 04/30/2024 Type 2 diabetes mellitus with diabetic polyneuropathy (ICD-10 - E11.42) Plan Of Treatment Pending Test Test Name Order Date 39461-YAVX SKIN LESIONS, OVER 4 04/30/20 24 [id number] DYSTROPHIC NAILS ANY # Next Appt Details Follow Up: prn, Reason: Provider Name:June Hinojosa , 11/19/2024 01:30:00 PM, [address] [place], [address], Procedure Notes * Category Sub-Category Detail Notes Keratoma Treatment Parring or Cutting o f Benign Hyperkeratotic Lesion(s) 61732 ( >4 Lesions) - The Benign hyperkeratotic lesions, as described above were pared, and/or cut utilizing a sterile #15 blade, tissue nippers, and/or dremel Nail Reduction Nail Reduction Trimming of dyst rophic nails performed to reduce/remove overall nail length and girth, by manual and electrical means with use of a nail nipper and/or dremel, to more viable healthy nail plate or bed tissue 6-10 (G0127) Progress Notes * Emily WATTERS ADOB: [birth year] (78 yo F)Acc No.[id number]:04/30/2024 Progress Note Patient:?Emily WATTERS A Provider:?June Hinojosa DPM :1945???Age:78 Y???Sex:Female D ate:04/30/2024 Address:[address] [place] [id number] Pcp:Adrian Jameson Subjective: * Chief Complaints: * ???At Risk Footcare * HPI: ???At Risk footcare:?Pt States Last PCP Visit:?Date?04/16/2024 * Medical History:? * Surgical History:?hysterecto my 1996 * Hospitalization/Major Diagno stic Procedure:?liver ultrasound 02/16/16Sebatious cyst removal on chest - [facility] 04/24/2018 * Family History:?Mother: dece ased, poor circulation, diagnosed with Family history of arthritis, Diabetic - NIDDM, Unspecified essential hypertension, Unspecified heart disease.?Father: , poor circulation, foot problems, diagnosed with Unspecified heart disease, Unspecified cerebral artery occlusion with cerebral infarction, Family history of arthritis, Unspecified essential hypertension.?Siblings: , 10/27/20.? father and mother(). * Social History:?Tobacco Use:?Tobacco Use/Smoking?Are you a:?former smoker ?How long has it been since you last smoked??< 1 month ?Additional Findings: Tobacco Non-User?Current non-smoker ?Tobacco use other than smoking?Are you an other tobacco user??No ???Drugs/Alcohol:?Drugs?Have you used drugs other than those for medical reasons in the past 12 months??No ?Alcohol Screen?Did you have a drink containing alcohol in the past year??No ?Points?0 ?Interpretation?Negative ???Miscellaneous:?Caffeine: yes, frequency:, 1-2 cups per day. ?Children: no, none. ?Exercise: yes, walking. ?Marital status: single. 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 * Medications:?TakingMultivita min - Tablet 1 tablet Orally Once a day metFORMIN HCl 1000 MG Tablet 1 tablet with a meal Orally Once a day Repaglinide 2 MG Tablet 1 tablet 15 to 30 minutes before meals Orally Once a day Fish Oil 1200 MG Capsule Delayed Release as directed Orally , Notes to Pharmacist: 2x a dayLantus 100 UNIT/ML Solution 45 units Subcutaneous Lisinopril 30 MG Tablet 1 tablet Orally Once a day Atorvastatin Calcium 20 MG Tablet 1 tablet Orally Once a day Jardiance 25 MG Tablet 1 tablet Orally Once a day amLODIPine Besylate 10 MG Tablet 1 tablet Orally Once a day vitamin Tylenol 325 MG Tablet 1 tablet as needed Orally every 6 hrs Citracal + D Cranberry 250 MG Capsule as directed Orally Flaxseed Oil 1000 MG Capsule as directed Orally Atenolol 150 MG Once a day Taking Multivitamin - Tablet 1 tablet Orally Once a day Taking metFORMIN HCl 1000 MG Tablet 1 tablet with a meal Orally Once a day Taking Repaglinide 2 MG Tablet 1 tablet 15 to 30 minutes before meals Orally Once a day Taking Fish Oil 1200 MG Capsule Delayed Release as directed Orally , Notes to Pharmacist: 2x a dayTaking Lantus 100 UNIT/ML Solution 45 units Subcutaneous Taking Lisinopril 30 MG Tablet 1 tablet Orally Once a day Taking Atorvastatin Calcium 20 MG Tablet 1 tablet Orally Once a day Taking Jardiance 25 MG Tablet 1 tablet Orally Once a day Taking amLODIPine Besylate 10 MG Tablet 1 tablet Orally Once a day Taking vitamin Taking Tylenol 325 MG Tablet 1 tablet as needed Orally every 6 hrs Taking Citracal + D Taking Cranberry 250 MG Capsule as directed Orally Taking Flaxseed Oil 1000 MG Capsule as directed Orally Taking Atenolol 150 MG Once a day Not-Taking/PRNzzzCompression Stockings 20-30mm Hg 1 pair closed toe- knee high . . . Trulicity 1.5 MG/0.5ML Solution Pen-injector as directed Subcutaneous once weekly Januvia 100 MG Tablet 1 tablet Orally Once a day Atenolol 50 MG Tablet 3 tablet Orally Once a day Aspirin 81 MG Tablet Delayed Release Orally Lisinopril-hydroCHLOROthiazide BD Pen Needle Short U/F Norvasc 2.5 MG Tablet 1 tablet Orally Once a day Medication List reviewed and reconciled with the patientNot-Taking/PRN zzzCompression Stockings 20-30mm Hg 1 pair closed toe- knee high . . . Not-Taking/PRN Trulicity 1.5 MG/0.5ML Solution Pen-injector as directed Subcutaneous once weekly Not-Taking/PRN Januvia 100 MG Tablet 1 tablet Orally Once a day Not-Taking/PRN Atenolol 50 MG Tablet 3 tablet Orally Once a day Not- Taking/PRN Aspirin 81 MG Tablet Delayed Release Orally Not-Taking/PRN Lisinopril-hydroCHLOROthiazide Not-Taking/PRN BD Pen Needle Short U/F Not- Taking/PRN Norvasc 2.5 MG Tablet 1 tablet Orally Once a day Medication List reviewed and reconciled with the patient * Allergies:?N.K.D.A.yes[Aller gies Verified] Objective: * Vitals:?Ht: 4ft 10in, Wt: 20 2, BMI: 42.21, Shoe size: 8, BP: 146/70 mm Hg, BS: 120, Ht-cm: 147.32 cm, Wt-k.63 kg. * ???Past Orders: ???Lab:HEMOGLOBIN A1C (GLYCO HEMOGLOBIN) (Order Date - 04/16/2024) (Collection Date & Time - 04/16/2024 02:50 PM) ? Value Reference Range ?TOTAL HEMOGLOBIN (HGBA1C) 7.0 * Examination: ???Ophthalmology Referral: ?DIABETES EYE EXAM?Procedure Performed:?Yes ?Date of Exam Performed?03/03/2024 ?Diabetic Retinopathy Screening:?Yes ?Findings of Diabetic Eye Exam:?no retinopathy?Nails: ?NAILS are:?Elongated, overgrown, dystrophic , 1-5 B/L.?Vascular: ?DP PULSES (B):? 2/4, B/L.?PT PULSES (B):?2/4, B/L.?Dermatologic: ?SKIN FINDINGS:?Skin exam reveals Keratotic lesion(s) located at,,SUB MTH (s),5,B/LMidfoot,Left SUB MTH (s) 1 B/L .?Neurological: ?SENSORY:?Neurological exam demonstrates, reduced vibration sensation, 5.07 monofilament test performed at plantar aspects of 5 varied sites per foot shows sensation, reduced at Forefoot, at Midfoot, , B/L, , reduced sharp/dull pin prick discrimination .?General Examination: ?FOOT EXAM:?Lower Extremity Neurological Exam performed:?Yes ?Visual exam of foot performed:?Yes ?Date?04/30/2024 ?Sensory testing performed:?sensations diminished ?Sensory and motor testing performed:?sensations diminished ?Pedal pulse taking performed:?2+ ?Footwear Evaluation?Footwear Evaluation performed:?Yes??? Assessment: * Assessment: 1.?Type 2 diabetes mellitus with diabetic polyneuropathy - E11.42??? Plan: * Treatment: * Procedures:?Keratoma Treatment:?Parring or Cutting of Benign Hyperkeratotic Lesion(s)?20333 ( >4 Lesions) - The Benign hyperkeratotic lesions, as described above were pared, and/or cut utilizing a sterile #15 blade, tissue nippers, and/or dremel.?Nail Reduction:?Nail Reduction?Trimming of dystrophic nails performed to reduce/remove overall nail length and girth, by manual and electrical means with use of a nail nipper and/or dremel, to more viable healthy nail plate or bed tissue 6-10 (G0127).? * Procedure Codes:?78871 TRIM SKIN LESIONS, OVER 4, Modifiers: XS G0127 TRIMMING DYSTROPHIC NAILS ANY #, Modifiers: XS * Follow Up:?prn * Images: * Sign off status: Completed true * Provider:?June Hinojosa DPM Date:?2023 Generated for Kristii ng/Aniketg/eTransmitting on:?10/08/2024 07:39 AM EDT History and Physical Notes * HPI (History of Present Illness) Category Sub-Category Detail Notes Category Not es At Risk footcare Pt States Last PCP Visit: Date: Examination Category Sub-Category Detail Notes Category Not es Neurological SENSORY: Neurological exa m demonstrates, reduced vibration sensation, 5.07 monofilament test performed at plantar aspects of 5 varied sites per foot shows sensation, reduced at Forefoot, at Midfoot, , B/L, , reduced sharp/dull pin prick discrimination Dermatologic SKIN FINDINGS: Skin exam reveal s Keratotic lesion(s) located at,,SUB MTH (s),5,B/LMidfoot,Left SUB MTH (s) 1 B/L General Examination FOOT EXAM: Lower Extrem ity Neurological Exam performed:: Yes Visual exam of foot performed:: Yes Date: 04/30/2024 Sensory testing performed:: sensations d iminished Sensory and motor testing performed:: se nsations diminished Pedal pulse taking performed:: 2+ Footwear Evaluation Footwear Evaluation performe d:: Yes Ophthalmology Referral DIABETES EYE EXAM Procedure Perform ed:: Yes ?Date of Exam Performed: 03/03/2024 Diabetic Retinopathy Screening:: Yes Findings of Diabetic Eye Exam:: no retin opathy Vascular DP PULSES (B): 2/4, B/L PT PULSES (B): 2/4, B/L Nails NAILS are: Elongated, overgrown, dystro phic , 1-5 B/L
--- OUTSIDE RECORDS SUMMARY | 2024-10-08 07:39 | XMS_ITS | Clinical Summary ---
Author Organization [facility] Address [address] [place] [address] Phone Care Team Providers Care Watch Repairer Name Role Phone Elsy Santoyo MD Primary Care Provider [phone] Allergies No known active allergies Medications Multiple Vitamin (MULTIVITAMIN ADULT PO) Take 1 capsule by mouth 1 (one) time each day Active [place]-3 Fatty Acids (Fish Oil Concentrate) 1000 MG capsule Take 2 capsules by mouth twice a day Active atenolol (TENORMIN) 100 MG tablet Take 1.5 tablets by mouth 1 (one) time each day Active atorvastatin (LIPITOR) 20 MG tablet Take 1 tablet by mouth 1 (one) time each day Active Empagliflozin (Jardiance) 25 MG tablet Take 1 tablet by mouth 1 (one) time each day Active insulin glargine (Lantus SoloStar) 100 UNIT/ML injection Inject 45 Units under the skin every morning Active Flaxseed, Linseed, 1000 MG capsule Take by mouth Activ e Calcium Citrate-Vitamin D (CITRACAL + D PO) Take by mouth Active Cranberry 250 MG capsule Take 1 capsule by mouth 1 (one) time each day Active amLODIPine (NORVASC) 10 MG tablet 10/16/2021 Active lisinopril (PRINIVIL,ZESTR IL) 30 MG tablet Take 30 mg by mouth 1 (one) time each day 10/02/2021 Active repaglinide (PRANDIN) 0.5 MG tablet 2 mg in the morning and 2 mg in the evening. Take before meals. 10/17/2021 Active acetaminophen (Tylenol 8 Hour Arthritis Pain) 650 MG 8 hr tablet Take 650 mg by mouth in the morning and 650 mg in the evening. Do not crush, chew, or split.. 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 0 04/14/2021 Family History Medical History Relation Comments Heart disease Father Hypertension Father Stroke Father Cancer Mother lung Diabetes Mother Hypertension Mother Diabetes Sibling 1 2 sisters Hypertension Sibling 2 2 sisters Relation Status Comments Father Mother Sibling 1 Sibling 2 Social History Tobacco Use Types Packs/Day Years Used Date Smoking Tobacco: Former Cigarettes 0 07/22/1968 - 07/22/1983 Smokeless Tobacco: Former Tobacco Cessation:Counseling Given: Not Answered Alcohol Use Standard Drinks/Week Comments No 0 (1 standard drink = 0.6 oz pur e alcohol) Comments Unknown Sex and Gender Information Value Date Recorded Sex Assigned at Not on file Legal Sex Female 4:39 PM EST Gender Identity Not on file Sexual Orientation Not on file Last Filed Vital Signs Vital Sign Reading Time Taken Comments Blood Pressure 155/92 02/14/2023 3:16 PM EDT Pulse 85 02/14/2023 3:16 PM EDT Temperature - - Respiratory Rate - - Oxygen Saturation 97% 02/14/2023 3:16 PM EDT Inhaled Oxygen Concentration - - Weight 87.1 kg (192 lb) 04/23/2022 1:30 PM EDT Height 142.2 cm (4' 8 ) 02/14/2023 3:16 PM EDT Body Mass Index 40.13 03/27/2019 12:00 PM EDT Plan of Treatment Health Maintenance Due Date Last Done Comments Pneumococcal Vaccine: 65+ Ye ars (1 of 2 - PCV) 1951 Diabetes: Hemoglobin A1C 08/21/2020 03/17/2020 Diabetes: Ophthalmology Exam 08/21/2020 Diabetes: Pedal Pulse Checked 08/21/2020 Diabetes: Sensory Foot Exam 08/21/2020 Diabetes: Visual Foot Exam 08/21/2020 Influenza Vaccine (#1) 2024 Hepatitis B Vaccine Aged Out No longe r eligible based on patient's age to complete this topic Procedures Procedure Name Priority Date/Time Associated Diagnosis Comments HEMOGLOBIN A1C Routine 03/17/2020 6:20 AM EDT from Last 3 Months or Most Recently Relevant to Health Maintenance Results * Hemoglobin A1c (03/17/2020 6:20 AM EDT) Hemoglobin A1C 8.2 % FRANCINE Comment: ?Hemoglobin A1C Reference Range ? Adults: ??4.8 - 6.0 % ? Non diabetic: ??< 6.0 % ? Goal: ??< 7.0 % Additional Action Suggested: ??> 8.0 % Note: ??Hemoglobin A1c results are invalid for patients ? with abnormal amounts of HbF. ??Blood transfusions ? may impact the HbA1c concentration in the patient ? sample. Estimated Average Glucose 189 MG/DL FRANCINE Comment: eAG = Estimated average glucose which is %A1C expressed as average glucose, using the formula of the R3H-Shkcqws Average Glucose study (ADAG), Diabetes Care, Vol.31,#8, Feb. 2007 03/17/2020 6:20 AM EDT Elsy Santoyo MD LAB BLOOD ORDERABLES Final Result FRANCINE from Last 3 Months or Most Recently Relevant to Health Maintenance Insurance [facility] PPO YADIRA([id number]) [facility] PPO BLUE([id number]) Care Teams Watch Repairer Relationship Specialty Start Date End Date Elsy Santoyo MD [address] [place] [id number] PCP - General Internal Medicine 04/14/21
--- OUTSIDE RECORDS SUMMARY | 2024-10-08 07:39 | XMS_ITS ---
Author Organization [facility] [place] Address [address] [place] [address] Care Team Providers Care Boiler Installer Name Role Phone Natanael CLEMENT, Candice Esquivel Primary Care Provider Un available Black, June Unavailable [phone] Allergies No Known Allergies REASON FOR VISIT At Risk Footcare, Toe Irritation Medications Medication SIG (Take, Route, Frequency, Duration) Notes Start Date End Date Status Atenolol 50 MG 3 tablet Orally Once a day Not-Taking Aspirin 81 MG Orally Not-Ta prabha Lisinopril-hydroCHLOROt hiazide Not-Taking BD Pen Needle Short U/F Not-Taking Norvasc 2.5 MG 1 tablet Orally Once a day Not-Taking Januvia 100 MG 1 tablet Orally Once a day for 30 day(s) Not-Taking Atenolol 150 Once a day Active zzzCompression Stockings 20-30mm Hg . . . for . Not-Hadley ing Trulicity 1.5 MG/0.5ML as directed Subcutaneous once weekly Not-Taking Extra Depth Orthopedic Shoes (1 Pair) with Customized Heat Molded Multidensity Innersoles (3 Pair) as directed Dx: NIDDM/Polyneuropathy (E11.42), Hammertoe Foot Deformity (M20.41,M20.42), Preulcerative Skin Lesion(s) (L85.1 08/17/2024 Active vitamin Active Tylenol 325 MG 1 tablet as needed Orally every 6 hrs Active Citracal + D Active Cranberry 250 MG as directed Orally Active Flaxseed Oil 1000 MG as directed Orally Active Jardiance 25 MG 1 tablet Orally Once a day Active amLODIPine Besylate 10 MG 1 tablet Orally Once a day Active Lantus 100 UNIT/ML 45 units Subcutaneous Active Lisinopril 30 MG 1 tablet Orally Once a day Active Atorvastatin Calcium 20 MG 1 tablet Orally Once a day for 30 day(s) Active Multivitamin - 1 tablet Orally Once a day Active metFORMIN HCl 1000 MG 1 tablet with a me al Orally Once a day Active Repaglinide 2 MG 1 tablet 15 to 30 minutes before meals Orally Once a day Active Fish Oil 1200 MG as directed Orally 2x a day Active Social History Tobacco Use: Social History Observation Description Date Details (start date - stop date) Never Smoker NA - NA Tobacco use other than smoking: Question Answer Notes Are you an other tobacco user? No Tobacco Control (Standard) Question Answer Notes Tobacco use: Nonsmoker Additional Findings: Tobacco non-user Current no nsmoker AUDIT-C (Standard) Question Answer Notes Did you have a drink containing alcohol in the p ast year? No Points 0 Interpretation Negative Problems Problem Type SNOMED Code ICD Code Onset Dates Problem Status W/U Status Risk Notes Problem Acquired hammer toe of right foot (0093764453660 105) Other hammer toe(s) (acquired), right foot (M20.41) Active confirmed Problem Acquired hammer toe of left foot (2343161461611 103) Other hammer toe(s) (acquired), left foot (M20.42) Active confirmed Vital Signs Height 4ft 10in in 08/17/2024 Weight 202 lbs 08/17/2024 BMI 42.21 kg/m2 08/17/2024 Blood pressure systolic 146 mm Hg 08/17/19 25 Blood pressure diastolic 70 mm Hg 025 Procedures Procedure Date Ordered Date Performed Result Body Sit e 52914-BRBX SKIN LESIONS, OVER 4 08/17/2024 N/A [id number] DYSTROPHIC NAILS ANY # 08/17/2024 N/A Encounters Encounter Location Date Provider Diagnosis [facility] [place] [address] [place] [address] 08/17/2024 June Black Type 2 diabetes mellitus with diabetic polyneuropathy E11.42 ; Other hammer toe(s) (acquired), right foot M20.41 and Other hammer toe(s) (acquired), left foot M20.42 Assessments Encounter Date Diagnosis (ICD Code) Assessment Notes Treatment Notes Treatment Clinical Notes Section Notes 08/17/2024 Type 2 diabetes mellitus with diabetic polyneuropathy (ICD-10 - E11.42) 08/17/2024 Other hammer toe(s) (acquired), right foot (ICD-10 - M20.41) Patient Educated with: DIABETIC FOOT CARE INSTRUCTIONS. pdf (DIABETIC FOOT CARE INSTRUCTIONS. pdf) 08/17/2024 Other hammer toe(s) (acquired), left foot (ICD-10 - M20.42) Plan Of Treatment Medication Medication Name Sig Start Date Stop Date Notes Extra Depth Orthopedic Shoes (1 Pair) with Customized Heat Molded Multidensity Innersoles (3 Pair) as directed Dx: NIDDM/Polyneuropathy (E11.42), Hammertoe Foot Deformity (M20.41,M20.42), Preulcerative Skin Lesion(s) (L85.1 08/17/2024 Treatment Notes Assessment Notes Other hammer toe(s) (acquired), right fo ot Patient Educated with: DIABETIC FOOT CARE INSTRUCTIONS.pdf (DIABETIC FOOT CARE INSTRUCTIONS.pdf) Pending Test Test Name Order Date 63140-ETSU SKIN LESIONS, OVER 4 08/17/19 [id number] DYSTROPHIC NAILS ANY # Next Appt Details Follow Up: 3 Months, Reason: Provider Name:June Hinojosa , 11/19/2024 01:30:00 PM, [address] [place] [address], [id number], Procedure Notes * Category Sub-Category Detail Notes Keratoma Treatment Parring or Cutting o f Benign Hyperkeratotic Lesion(s) (-57) More than 4 Lesions - Due to the at risk nature of the patients medical condition as documented in the exam findings, performance of this keratoderma treatment is medically necessary as its management by an unskilled/untrained nonprofessional would put this patients foot and overall health at risk. Therefore, the benign hyperkeratotic lesions, ( _5_ ) in total, locations as stated and described in the exam ( _SUB MTH (s),5,B/LMidfoot,Left SUB MTH (s) 1 B/L ), were pared, and/or cut utilizing a sterile 15 blade, tissue nippers, and/or power dremel instrumentation by the physician of record - 04635 Nail Reduction Nail Reduction (-27) Trimming o f all dystrophic nails - Due to the at risk nature of the patients medical condition as documented in the exam findings, performance of this nail treatment is medically necessary as its management by an unskilled/untrained nonprofessional would put this patients foot and overall health at risk. Therefore, the dystrophic nails, in locations as stated and described in the exam ( TA, T1, T2, T3, T4, T5, T6, T7, T8, T9,), were debrided by the phisician of record to reduce/remove overall nail length and girth, by manual and electrical means with use of a nail nipper and/or dremel, to more viable healthy nail plate or bed tissue - G0127 Progress Notes * Es WATTERS ADOB: [birth year] (78 yo F)Acc No.[id number]:08/17/2024 Progress Note Patient:?Es WATTERS Provider:?June Hinojosa DPM :1945???Age:78 Y???Sex:Female D ate:08/17/2024 Address:[address] [place] [id number] Pcp:Adrian Jameson Subjective: * Chief Complaints: * ???At Risk FootcareToe Irrit ation * HPI: ???At Risk footcare:?Pt States Last PCP Visit:?Date?05/14/2024 ???Toe pain:?Location:?B/L feet.?Duration:?several years.?Course:?worse.?Aggravated by:?shoes, any pressure.?Treatments:?change in shoes.? * ROS:?General/Constitutional:?Nausea?denies.?Vomiting?denies.?Hunger Thirst?denies.?Loss appetite?denies.?Chills?denies.?Fatigue?denies.?Fever?denies.?Night Sweats?denies.?Unexplained weight loss?denies.?Unexplained weight gain?denies.?HEENTM:?Dentures?denies.?Dizziness?denies.?Glasses/contacts?admits.?Retinopathy?den ies.?Blurred/double vision?denies.?TMJ?denies.?Discharge/drainage?denies.?Implants?denies.?Sore throat?denies.?Dental implants?denies.?Hard of hearing ?denies.?Difficulty chewing/swallowing/speaking?denies.?Nose bleeds?denies.?Sore mouth?denies.?Respiratory:?On O xygen?denies.?Pneumonia/pleurisy?denies.?Bronchitis?denies.?Emphysema?denies.?Co ughing?denies.?Cough blood?denies.?Shortness of breath?denies.?Wheezing?denies.?Cardiovascular:?Pacemaker?denies.?MVP?denies.?WPW?denies.?CHF?denies.?Heart attack?denies.?Septal defect?denies.?Rapid beat?denies.?Chest pain ?denies.?Atrial Fib.?denies.?Murmur/Palpitations?denies.?Gastrointestinal:?Hemorrhoids?denies.?Stomach/Abdominal pain?denies.?Dark blood stool?denies.?Irritable bowel ?denies.?Constipation?denies.?Diarrhea?denies.?Hematology:?Swelling?admits.?Clots?denies.?Varicose Veins?denies.?Bruising?denies.?Bleeding problem?denies.?Genitourinary:?Blood urine?denies.?Frequent/Painfu/urination/bladder control?denies.?Kidney stones?denies.?Infection (UTI)?denies.?Nephropathy?denies.?sex trans dis (STD)?denies.?Prostate?denies.?Musculoskeletal:?Hammertoes?denies.?Bunions?denies.?Back Pain?denies.?Muscle Cramps/ Resting?denies.?Muscle cramps / walking?denies.?Generalized aches and pains?denies.?Weakness?denies.?Integ.:?Dennis?denies.?Scars?denies.?Corns/calluses?denies.?Ingrown nails?denies.?Painful nails?admits.?Open Sores?denies.?Rashes?denies.?Neurologic:?Difficulty sleeping?denies.?Brain disorder?denies.?Numbness?admits.?Balance t rouble?denies.?Confusion?denies.?Fainting/blackouts?denies.?Tingling?denies.?Bob mors?denies.? * Medical History:? * Surgical History:?hysterecto my 1996 * Hospitalization/Major Diagno stic Procedure:?liver ultrasound 02/16/16Sebatious cyst removal on chest - [facility] 04/24/2018 * Family History:?Mother: dece ased, poor circulation, diagnosed with Diabetic - NIDDM, Unspecified essential hypertension, Unspecified heart disease, Family history of arthritis.?Father: , poor circulation, foot problems, diagnosed with Unspecified essential hypertension, Unspecified heart disease, Unspecified cerebral artery occlusion with cerebral infarction, Family history of arthritis.?Siblings: , 10/27/20.? father and mother(). * Social History:?Tobacco Use:?Tobacco use other than smoking?Are you an other tobacco user??No ?Tobacco Control (Standard)?Tobacco use:?Nonsmoker ?Additional Findings: Tobacco non-user?Current nonsmoker ???Drugs/Alcohol:?Drugs?Have you used drugs other than those for medical reasons in the past 12 months??No ???Miscellaneous:?Caffeine: yes, frequency:, 1-2 cups per day. ?Children: no, none. ?Exercise: yes, walking. ?Marital status: single. 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 ???Drug/Alcohol:?AUDIT-C (Standard)?Did you have a drink containing alcohol in the past year??No ?Points?0 ?Interpretation?Negative * Medications:?TakingMultivita min - Tablet 1 tablet [...] gies Verified] Objective: * Vitals:?Ht: 4ft 10in, Wt:202 , BMI: 42.21, Shoe size:8, BP:146/70mm Hg, BS:122, Ht-cm: 147.32 cm, Wt-k.63 kg. * ???Past Orders: ???Lab:HEMOGLOBIN A1C (GLYCO HEMOGLOBIN) (Order Date - 03/23/2024) (Collection Date & Time - 03/23/2024 03:11 PM) ? Value Reference Range ?HEMOGLOBIN A1C % (HH) 7.0 * Examination: ???Ophthalmology Referral: ?DIABETES EYE EXAM?Procedure Performed:?Yes ?Date of Exam Performed?04/22/2023 ?Retinal Screening Performed:?Yes ?Findings of Diabetic Eye Exam:?no retinopathy?General Examination: ?GENERAL APPEARANCE:?Reveals a pleasant, alert, well nourished, well- developed, well hydrated individual, who demonstrates proper attention to hygiene/body habitus, and is in no acute distress, Pt serves as own historian for office visit today.?ORIENTED:?person, place, and time.?FOOT EXAM:?Lower Extremity Neurological Exam performed:?Yes ?Visual exam of foot performed:?Yes ?Date?08/17/2024 ?Sensory testing performed:?sensations diminished ?Sensory and motor testing performed:?sensations diminished ?Pedal pulse taking performed:?2+ ?Footwear Evaluation?Footwear Evaluation performed:?Yes?Nails: ?NAILS are:?Elongated, overgrown, dystrophic ,, TA, T1, T2, T3, T4, T5, T6, T7, T8, T9.?Vascular: ?DP PULSES (B):? 2/4, B/L.?PT PULSES (B):?2/4, B/L.?EDEMA (C):?4/4, Ankle(s), Leg(s), B/L.?Dermatologic: ?SKIN FINDINGS:?Skin exam reveals Keratotic lesion(s) located at,,SUB MTH (s),5,B/LMidfoot,Left SUB MTH (s) 1 B/L .?Neurological: ?SENSORY:?Neurological exam demonstrates, reduced vibration sensation, 5.07 monofilament test performed at plantar aspects of 5 varied sites per foot shows sensation, reduced at Forefoot, at Midfoot, , B/L, , reduced sharp/dull pin prick discrimination .?Orthopedic: ?DIGITAL DEFORMITIES:?Digital contracture, PIPJ, 2-5 B/L, incompl-reducible to push-up test, no over, nor underlapping,?there is?evidence of shoe producing skin irritation.?FOOTWEAR:?worn, non-supportive, shoe gear properties exacerbate patient's foot/toe deformity.? Assessment: * Assessment: 1.?Type 2 diabetes mellitus with diabetic polyneuropathy - E11.42???2.?Other hammer toe(s) (acquired), right foot - M20.41 (Primary)???Specify :Chronic problem, Worse (4),Rx Management (4)???3.?Other hammer toe(s) (acquired), left foot - M20.42???Specify :Chronic problem, Worse (4),Rx Management (4)??? Plan: * Treatment: 2.?Type 2 diabetes mellitus with diabetic polyneuropathy?Procedure: 29996-YBRW SKIN LESIONS, OVER 4 ?Procedure: [id number]-[id number] DYSTROPHIC NAILS ANY # * Procedures:?Keratoma Treatment:?Parring or Cutting of Benign Hyperkeratotic Lesion(s)?(-57) More than 4 Lesions - Due to the at risk nature of the patients medical condition as documented in the exam findings, performance of this keratoderma treatment is medically necessary as its management by an unskilled/untrained nonprofessional would put this patients foot and overall health at risk. Therefore, the benign hyperkeratotic lesions, ( _5_ ) in total, locations as stated and described in the exam ( _SUB MTH (s),5,B/LMidfoot,Left SUB MTH (s) 1 B/L ), were pared, and/or cut utilizing a sterile 15 blade, tissue nippers, and/or power dremel instrumentation by the physician of record - [id number].?Nail Reduction:?Nail Reduction?(-27) Trimming of all dystrophic nails - Due to the at risk nature of the patients medical condition as documented in the exam findings, performance of this nail treatment is medically necessary as its management by an unskilled/untrained nonprofessional would put this patients foot and overall health at risk. Therefore, the dystrophic nails, in locations as stated and described in the exam ( TA, T1, T2, T3, T4, T5, T6, T7, T8, T9,), were debrided by the phisician of abdifatah to reduce/remove overall nail length and girth, by manual and electrical means with use of a nail nipper and/or dremel, to more viable healthy nail plate or bed tissue - G0127.? * Procedure Codes:?00789 TRIM SKIN LESIONS, OVER 4, Modifiers: XS G0127 TRIMMING DYSTROPHIC NAILS ANY #, Modifiers: XS * Preventive Medicine:? ??Counseling:?Discussion:?-14: Office or other outpatient visit for the evaluation and management of an established patient, which required a medically appropriate history and/or examination and MODERATE level of DECISION MAKING for: 1 OR MORE CHRONIC PROBLEM(S) THATS WORSENING, 2 STABLE CHRONIC PROBLEMS, A NEWLY DIAGNOSED PROBLEM WITH UNCERTAIN PROGNOSIS, AN ACUTE COMPLICATED INJURY WITH MULTIPLE TREATMENT OPTIONS, OR AN ACUTE PROBLEM WITH ACCOMPANYING SYSTEMIC SYMPTOMS, THAT POSE(S) A MODERATE RISK OF MORBIDITY. THIS CONDITION MAY ALSO INCLUDE RX DRUG MANAGEMENT, OR A DECISON FOR MINOR SURGERY. The visit on the day of the encounter encompassed interpreting the data and educating the patient as to the nature of their condition, treatment options available according to their individual PMH, meds, allergies, and overall health/living conditions, as well as any potential risks or complications that may occur from a failure to adhere to, and participate in, the recommended course of therapy. The discussion included a complete verbal, and/or written explanation of the examination results, any x-rays taken, the proposed diagnosis, and outline of the treatment plan. A schedule for future care needs was also explained. The patient verbalized an understanding of the instructions at this time and agreed to be an active participant in their treatment. If the patient should think of any questions or concerns after the visit, I have encouraged the patient to call the office.?Digital Surgery:?We elected to try conservative treatment at the present time, due to the patients age, medical history, and circulatory constraints.?Digital Treatment:?HT- I explained to the patient the possible etiologies of Hammertoes, including genetics/foot type/shoegear/activity level/exercise routine and the risks/benefits of all the different treatment options for their pain including: No treatment at all, Rest, Ice, New/supportive/wider/deeper Shoe gear, Digital Padding/Strapping/Taping/Bracing/Gel protective sleeves, Foot/Ankle AFO Bracing, Stretching exercises, Deep Tissue Massage, Arch support/shoe inserts with splay metatarsal padding, and Custom orthoses. I insisted that any digital devices be removed daily and not worn overnight for safety. The patient is to carefully examine the toes daily for any skin irritation while using any splinting or padding device. The advantages and disadvantages of each option were discussed and the patients questions re: shoe gear, padding, custom vs prefabricated inserts, activity level, and consistency in home treatment regimens for optimal success were answered to their verbally confirmed satisfaction, Recomm, rest, ice, proper shoegear, padding, orthotics, anti-inflammatories or tylenol as tolerated, topical analgesics, cortisone injections.?Shoe Gear Counseling:?SHOE Rx - The patient was counseled in great detail on their muscoloskeletal foot and toe deformities which coincided with the dermatological presentations visualized on exam. We discussed how their deformities put the integrity of their feet at risk for potential pedal complications which makes the accomidative diabetic shoes and cutomizable inserts medically necessary. We discussed the different shoe and insert treatment types and options, as well as the important advantages for adhering to regularly wearing these accomidative devices daily. The patient was made aware of the fact that a failure to abide by these recommedations may be deleterious to their foot health as they are able to prevent many pedal complications such as skin irritation, skin ulceration, infection, and even loss of toe/foot/leg/or life. Time was also spent with the patient dispensing and discussing proper diabetic footcare techniques including daily skin moisturization, daily foot inspection for any interruption in skin integrity including open lesions, or sign of infection such as redness/malodor/drainage/swelling. Also discussed and recommended were procedures regarding daily shoe inspection for the presence of internal foreign bodies as well as any visualized irregular shoe or insert wear. Patient questions re: shoes, inserts, and self foot inspections were answered to their satisfaction as the patient verbally confirmed a full understanding of the above information. A Rx for Extra Depth Orthopedic Shoes with 3 pair of custom heat-molded inserts was dispensed.? ??Screening/Special Tests:?Fall Risk?Screening:?No falls in the past year ?FALLS: Screening for Future Fall Risk?Have you had any falls with injury in the past year??No * Follow Up:?3 Months * Images: * Sign off status: Completed true * Provider:?June Hinojosa DPM Date:?2024 Generated for Nydia delgado/Sukumar/Heavensmitting on:?10/08/2024 07:38 AM EDT History and Physical Notes * HPI (History of Present Illness) Category Sub-Category Detail Notes Category Not es Toe pain Location: B/L feet Duration: several years Course: worse Aggravated by: shoes, any pressure Treatments: change in shoes At Risk footcare Pt States Last PCP Visit: Date: 4 Examination Category Sub-Category Detail Notes Category Not es Neurological SENSORY: Neurological exa m demonstrates, reduced vibration sensation, 5.07 monofilament test performed at plantar aspects of 5 varied sites per foot shows sensation, reduced at Forefoot, at Midfoot, , B/L, , reduced sharp/dull pin prick discrimination Dermatologic SKIN FINDINGS: Skin exam reveal s Keratotic lesion(s) located at,,SUB MTH (s),5,B/LMidfoot,Left SUB MTH (s) 1 B/L Orthopedic FOOTWEAR: worn, non-suppor tive, shoe gear properties exacerbate patient's foot/toe deformity DIGITAL DEFORMITIES: Digital contracture , PIPJ, 2-5 B/L, incompl-reducible to push-up test, no over, nor underlapping, there is evidence of shoe producing skin irritation General Examination GENERAL APPEARANCE: Reveals a pleasant, alert, well nourished, well-developed, well hydrated individual, who demonstrates proper attention to hygiene/body habitus, and is in no acute distress, Pt serves as own historian for office visit today FOOT EXAM: Lower Extremity Neurological Exa m performed:: Yes Visual exam of foot performed:: Yes Date: 08/17/2024 Sensory testing performed:: sensations d iminished Sensory and motor testing performed:: se nsations diminished Pedal pulse taking performed:: 2+ ORIENTED: person, place, and t campbell Footwear Evaluation Footwear Evaluation performe d:: Yes Ophthalmology Referral DIABETES EYE EXAM Procedure Perform ed:: Yes ?Date of Exam Performed: 04/22/2023 Retinal Screening Performed:: Yes Findings of Diabetic Eye Exam:: no retin opathy Vascular DP PULSES (B): 2/4, B/L PT PULSES (B): 2/4, B/L EDEMA (C): 4/4, Ankle(s), Leg(s ), B/L Nails NAILS are: Elongated, overg rown, dystrophic ,, TA, T1, T2, T3, T4, T5, T6, T7, T8, T9
--- OUTSIDE RECORDS SUMMARY | 2024-10-08 07:39 | XMS_ITS ---
Author Organization [facility] [place] Address [address] [place] [address] Care Team Providers Care Development Technician Name Role Phone Natanael CLEMENT, Candice Esquivel Primary Care Provider Un available Black, June Unavailable [phone] Allergies No Known Allergies REASON FOR VISIT At Risk Footcare Medications Medication SIG (Take, Route, Frequency, Duration) Notes Start Date End Date Status metFORMIN HCl 1000 MG 1 tablet with a me al Orally Once a day Active Lantus 100 UNIT/ML 45 units Subcutaneous Active Fish Oil Active Norvasc 2.5 MG 1 tablet Orally Once a day Not-Taking Repaglinide 0.5 MG 1 tablet 15 to 30 minutes before meals Orally Once a day Active Aspirin 81 MG Orally Not-Ta prabha Atenolol 50 MG 3 tablet Orally Once a day Not-Taking BD Pen Needle Short U/F Not-Taking Lisinopril-hydroCHLOROthi azide Not-Taking Januvia 100 MG 1 tablet Orally Once a day for 30 day(s) Not-Taking zzzCompression Stockings 20-30mm Hg . . . for . Not-Taking Atenolol 150 Once a day Active Trulicity 1.5 MG/0.5ML as directed Subcutaneous once weekly Not-Taking Flaxseed Oil 1000 MG as directed Orally Active Cranberry Active Citracal + D Active amLODIPine Besylate 10 MG 1 tablet Orall y Once a day Active Jardiance 25 MG 1 tablet Orally Once a day Active Tylenol 325 MG Orally twice a day Active vitamin Active Atorvastatin Calcium 20 MG 1 tablet [...] Additional Findings: Tobacco Non-User Current no n-smoker Tobacco use other than smoking: Question Answer Notes Are you an other tobacco user? No Problems Problem Type SNOMED Code ICD Code Onset Dates Problem Status W/U Status Risk Notes Problem Polyneuropathy due to type 2 diabetes mellitus (915739791) Type 2 diabetes mellitus with diabetic polyneuropathy (E11.42) Active confirmed Vital Signs Height 4ft 10in in 01/30/2024 Weight 196 lbs 01/30/2024 BMI 40.96 kg/m2 01/30/2024 Blood pressure systolic 140 mm Hg 01/30/20 24 Blood pressure diastolic 80 mm Hg 024 Procedures Procedure Date Ordered Date Performed Result Body Sit e 34238-CIMP SKIN LESIONS, OVER 4 01/30/2024 N/A [id number] DYSTROPHIC NAILS ANY # 01/30/2024 N/A Encounters Encounter Location Date Provider Diagnosis [facility] [address] [address] 01/30/2024 June Hinojosa Type 2 diabetes mellitus with diabetic polyneuropathy E11.42 Assessments Encounter Date Diagnosis (ICD Code) Assessment Notes Treatment Notes Treatment Clinical Notes Section Notes 01/30/2024 Type 2 diabetes mellitus with diabetic polyneuropathy (ICD-10 - E11.42) Plan Of Treatment Pending Test Test Name Order Date 38400-IKSL SKIN LESIONS, OVER 4 01/30/20 24 [id number] DYSTROPHIC NAILS ANY # Next Appt Details Follow Up: prn, Reason: Provider Name:June Hinojosa , 11/19/2024 01:30:00 PM, [address] [place], [address], Procedure Notes * Category Sub-Category Detail Notes Keratoma Treatment Parring or Cutting o f Benign Hyperkeratotic Lesion(s) 22232 ( >4 Lesions) - The Benign hyperkeratotic [...] Emily WATTERS ADOB: [birth year] (78 yo F)Acc No.[id number]:01/30/2024 Progress Note Patient:?Emily Watters A Provider:?June Hinojosa DPM :1945???Age:78 Y???Sex:Female D ate:01/30/2024 Address:[address] [place] [id number] Pcp:Adrian Jameson Subjective: * Chief Complaints: * ???At Risk Footcare * HPI: ???At Risk footcare:?Pt States Last PCP Visit:?Date?12/19/2023 * Medical History:? * Surgical History:?hysterecto my 1996 * Hospitalization/Major Diagno stic Procedure:?liver ultrasound 02/16/ebatious cyst removal on chest [place] [facility] [place] * Family History:?Mother: dece ased, poor circulation, diagnosed with Family history of arthritis, Diabetic - NIDDM, Unspecified essential hypertension, Unspecified heart disease.?Father: , poor circulation, foot problems, diagnosed with Family history of arthritis, Unspecified essential hypertension, Unspecified heart disease, Unspecified cerebral artery occlusion with cerebral infarction.?Siblings: , 10/27/20.? father and mother(). * Social History:?Tobacco Use:?Tobacco Use/Smoking?Are you a:?former smoker ?How long has it been since you last smoked??< 1 month ?Additional Findings: Tobacco Non-User?Current non-smoker ?Tobacco use other than smoking?Are you an other tobacco user??No * Medications:?TakingmetFORMIN HCl 1000 MG Tablet 1 tablet with a meal Orally Once a dayRepaglinide 0.5 MG Tablet 1 tablet 15 to 30 minutes before meals Orally Once a dayFish Oil Lantus 100 UNIT/ML Solution 45 units Subcutaneous Lisinopril 30 MG Tablet 1 tablet Orally Once a dayAtorvastatin Calcium 20 MG Tablet 1 tablet Orally Once a dayJardiance 25 MG Tablet 1 tablet Orally Once a dayamLODIPine Besylate 10 MG Tablet 1 tablet Orally Once a dayvitamin Tylenol 325 MG Tablet Orally twice a dayCitracal + D Cranberry Flaxseed Oil 1000 MG Capsule as directed Orally Atenolol 150 MG Once a dayTaking metFORMIN HCl 1000 MG Tablet 1 tablet with a meal Orally Once a dayTaking Repaglinide 0.5 MG Tablet 1 tablet 15 to 30 minutes before meals Orally Once a dayTaking Fish Oil Taking Lantus 100 UNIT/ML Solution 45 units Subcutaneous Taking Lisinopril 30 MG Tablet 1 tablet Orally Once a dayTaking Atorvastatin Calcium 20 MG Tablet 1 tablet Orally Once a dayTaking Jardiance 25 MG Tablet 1 tablet Orally Once a dayTaking amLODIPine Besylate 10 MG Tablet 1 tablet Orally Once a dayTaking vitamin Taking Tylenol 325 MG Tablet Orally twice a dayTaking Citracal + D Taking Cranberry Taking Flaxseed Oil 1000 MG Capsule as directed Orally Taking Atenolol 150 MG Once a dayNot-Taking/PRNzzzCompression Stockings 20-30mm Hg 1 pair closed toe- knee high . . .Trulicity 1.5 MG/0.5ML Solution Pen-injector as directed Subcutaneous once weeklyJanuvia 100 MG Tablet 1 tablet Orally Once a dayAtenolol 50 MG Tablet 3 tablet Orally Once a dayAspirin 81 MG Tablet Delayed Release Orally Lisinopril-hydroCHLOROthiazide BD Pen Needle Short U/F Norvasc 2.5 MG Tablet 1 tablet Orally Once a dayMedication List reviewed and reconciled with the patientNot-Taking/PRN zzzCompression Stockings 20-30mm Hg 1 pair closed toe- knee high . . .Not-Taking/PRN Trulicity 1.5 MG/0.5ML Solution Pen-injector as directed Subcutaneous once weeklyNot-Taking/PRN Januvia 100 MG Tablet 1 tablet Orally Once a dayNot-Taking/PRN Atenolol 50 MG Tablet 3 tablet Orally Once a dayNot-Taking/PRN Aspirin 81 MG Tablet Delayed Release Orally Not-Taking/PRN Lisinopril-hydroCHLOROthiazide Not-Taking/PRN BD Pen Needle Short U/F Not- Taking/PRN Norvasc 2.5 MG Tablet 1 tablet Orally Once a dayMedication List reviewed and reconciled with the patient * Allergies:?N.K.D.A.yes[Aller gies Verified] Objective: * Vitals:?Ht: 4ft 10in, Wt: 19 6, BMI: 40.96, Shoe size: 8, BP: 140/80 mm Hg, BS: 118, Ht-cm: 147.32 cm, Wt-k.9 kg. * Examination: ???Ophthalmology Referral: ?DIABETES EYE EXAM?Diabetic Retinopathy Screening:?Yes ?Findings of Diabetic Eye Exam:?no retinopathy?Nails: ?NAILS are:?Elongated, overgrown, dystrophic , 1-5 B/L.?Vascular: ?DP PULSES:? 2/4, B/L.?PT PULSES:?2/4, B/L.?Dermatologic: ?SKIN FINDINGS:?Skin exam reveals Keratotic lesion(s) located at,,SUB MTH (s),5,B/LMidfoot,Left SUB MTH (s) 1 B/L .?Neurological: ?SENSORY:?Neurological exam demonstrates, reduced vibration sensation, 5.07 monofilament test performed at plantar aspects of 5 varied sites per foot shows sensation, reduced at Forefoot, at Midfoot, , B/L, , reduced sharp/dull pin prick discrimination .? Assessment: * Assessment: 1.?Type 2 diabetes mellitus with diabetic polyneuropathy - E11.42? Plan: * Treatment: * Procedures:?Keratoma Treatment:?Parring or Cutting of Benign Hyperkeratotic Lesion(s)?13116 ( >4 Lesions) - The Benign hyperkeratotic lesions, as described above were pared, and/or cut utilizing a sterile #15 blade, tissue nippers, and/or dremel.?Nail Reduction:?Nail Reduction?Trimming of dystrophic nails performed to reduce/remove overall nail length and girth, by manual and electrical means with use of a nail nipper and/or dremel, to more viable healthy nail plate or bed tissue 6-10 (G0127).? * Procedure Codes:?49822 TRIM SKIN LESIONS, OVER 4, Modifiers: XS G0127 TRIMMING DYSTROPHIC NAILS ANY #, Modifiers: XS * Follow Up:?prn * Images: * Sign off status: Completed true * Provider:?June Hinojosa DPM Date:?2023 Generated for Kristii ng/Faweng/eTransmitting on:?10/08/2024 07:38 AM EDT History and Physical [...] MTH (s),5,B/LMidfoot,Left SUB MTH (s) 1 B/L Ophthalmology Referral DIABETES EYE EXAM Diabeti c Retinopathy Screening:: Yes Findings of Diabetic Eye Exam:: no retin opathy Vascular DP PULSES (B): 2/4, B/L PT PULSES (B): 2/4, B/L Nails NAILS are: Elongated, overgrown, dystro phic , 1-5 B/L
[2024-10-08 10:26] LABS: Estimated Average Glucose 140 mg/dL; Hemoglobin A1C 163.3009 umol/L; Hemoglobin A1c % 6.5 % (<6.0)
[2024-10-08 10:28] LABS: Alanine Aminotransferase 19 U/L (0-31); Anion Gap 14 (12-20); Aspartate Amino Transferase 25 U/L (5-31); Blood Urea Nitrogen 20 mg/dL (9-16); Calcium 9.4 mg/dL (8.4-10.2); Carbon Dioxide 26 mmol/L (22-29); Chloride 104 mmol/L (96-108); Cholesterol 152 mg/dL (<200); Estimated Glomerular Filt Rate > 60; Glucose Fasting 147 mg/dL (60-99); HDL Cholesterol 54 mg/dL (>40); LDL Cholesterol Calculated 74 mg/dL (<100); Sodium 140 mmol/L (135-145); Triglycerides 122 mg/dL (<150)
[2024-10-08 10:45] LABS: Vitamin D 25-OH Total 98.3 ng/mL (>30)
[2024-10-08 10:58] LABS: Creatinine Urine 16.74 mg/dL; Microalbum/Creatinine Ratio Ur 155.3 ug/mg cr (<30)
== END 2024-10-08 07:37 | disposition home or self-care (01) ==
LOC: HO.HMGCLDS 07:36
PROVIDERS: PCP Internal Medicine; Visit Provider Internal Medicine
DX: I12.9 Hypertensive chronic kidney disease with stage 1 through stage 4 chronic kidney disease, or unspecified chronic kidney disease (principal); E11.22 Type 2 diabetes mellitus with diabetic chronic kidney disease; N18.30 Chronic kidney disease, stage 3 unspecified; E78.2 Mixed hyperlipidemia; E89.40 Asymptomatic postprocedural ovarian failure
CPT/HCPCS: 36415; 80048; 80061; 82043; 82306; 82570; 83036; 84450; 84460

== ENCOUNTER 2024-10-15 13:10 | Outpatient (AMB) | payer MEDICARE, SELFPAY ==
[2024-10-15 13:48] VITALS: BP 112/70; PULSE 70; RESP 17; TEMP 36.8; O2SAT 94; BMI 55.7
--- NOTE | 2024-10-15 13:48 | A.OFFPC_ITS ---
Vital Signs 10/15/24 13:48 Height 4 ft 2 in Weight 198 lb BMI 55.7 BP 112/70 Blood Pressure Location Rt brachial Position Sitting Respiration 17 Pulse 70 Pulse Source Pulse Oximeter Temp 98.2 F Temp Source Oral Pulse Oximetry (%) 94 Oxygen Delivery Method Room Air Intake Visit Reasons: 6 months f/up Intake Note: Pt is here today for her 6mo. f/u Allergies No Known Allergies [No Known Allergies*] Allergy (Verified 10/15/24 14:16) Medication List - Last Reconciled 10/15/24 by Candice Santoyo MD acetaminophen ER (Tylenol Arthritis Pain) 650 mg PO Q12H amlodipine 10 mg PO DAILY atenolol 150 mg (1.5 x 100 mg) PO DAILY 90 days atorvastatin 20 mg PO DAILY blood sugar diagnostic ([place] [employer] Verio test strips) Three times a day blood-glucose meter ([employer]ler[employer] Verio Meter) As directed calcium citrate-vitamin D3 315 mg-6.25 mcg (250 unit) (Citracal + Vitamin D Maximum) 1 tab PO DAILY cranberry extract 250 mg PO DAILY empagliflozin (Jardiance) 25 mg PO DAILY flaxseed oil 1,000 mg PO BID insulin glargine (Lantus Solostar U-100 Insulin) 50 units (0.5 mL) subcut QAM lancets Check blood sugar 3 times a day before meals topical 3 times a day lisinopril 30 mg PO DAILY metformin 1,000 mg PO BIDWMEAL 3 months multivitamin with minerals 1 cap PO DAILY omega 3-lce-fur-fish oil 1,200 (144-216) mg (Fish Oil) caps PO pen needle, diabetic (BD Ultra-Fine Short Pen Needle) Use daily as directed subcut daily; repaglinide 2 mg PO TID 30 days Tobacco use date assessed: 10/15/24 Fall risk assessment: No Falls in past year Last assessed Fall Risk: 10/15/24 Dental Screening Dental Screen Date: 10/15/24 Did you have a dental visit in the last 12 months?: No Did you have a dental problem in the last 6 months where you did not have access to dental care?: No Was dental information given to patient?: No HPI 6 months f/up HPI Details 79 year-old lady with hypertension, diab etes mellitus, hyperlipidemia, here today for her follow-up. She has been compliant with taking her medications, and has a been cutting back on her bedtime snack scan, walks every day during her lunch time. She has been feeling well, has lost some weight , with no complaints at present time. She sees Dr. Carbajal, is up-to-date with her diabetes retinopathy screening, with no retinopathy seen. [facility]LY [facility] Medical History (Updated 10/15/24 @ 14:36 by Candice Santoyo MD) Surgical menopause Gait instability Papanicolaou smear declined Colonoscopy refused Obesity due to excess calories Type 2 diabetes mellitus with chronic kidney disease Mixed dyslipidemia Essential hypertension DUB (dysfunctional uterine bleeding) CKD stage 3 secondary to diabetes Mammogram declined Surgical History Hx of hysterectomy S/P LOLIS-BSO Family History Father CAD (coronary artery disease) Mother Diabetes mellitus Lung cancer Sister Diabetes mellitus Social History Household Members: None Housing: House Alcohol intake: never Patient Tobacco Use Status: Former Tobacco user Years Smoked: 14 yrs e-Cigarette/Vaping Use: Never Used service: No Current occupational status: employed Cognitive needs: No Hearing needs: No Vision needs: Yes Questionnaire PHQ-9 Over the last 2 weeks, how often have you been bothered by any of the following problems? 1. Little interest or pleasure in doing things: not at all 2. Feeling down, depressed, or hopeless: not at all 3. Trouble falling or staying asleep, or sleeping too much: not at all 4. Feeling tired or having little energy: not at all 5. Poor appetite or overeating: not at all 6. Feeling bad about yourself - or that you are a failure or have let yourself or your family down: not at all 7. Trouble concentrating on things, such as reading the newspaper or watching television: not at all 8. Moving or speaking so slowly that other people could have noticed. Or the opposite - being so fidgety or restless that you have been moving around a lot more than usual: not at all 9. Thoughts that you would be better off or of hurting yourself in some way: not at all Total score: 0 Depression Screening Interpretation: Negative Depression Screening Done: Yes 24806 - PHQ-9 Billing: Yes Source: Developed by Drs. Ike Michelle, Gege Mary, David Borges and colleagues, with an educational shea from [employer]. Thrive Questionnaire Date Thrive assessed: 10/15/24 I am a: Patient What is your living situation today?: I have a steady place to live Within the past 12 months, did the food you bought not last and you didn't have the money to get more?: Never true Within the past 12 months, did you worry whether your food would run out before you got money to buy more?: Never true Do you have trouble paying for medicines?: No Do you have trouble getting transportation to medical appointments?: No Do you have trouble paying your heating and electricity bill?: No Do you have trouble taking care of your child, family member or friend?: No Do you have trouble with day-to-day activities such as bathing, preparing meals, shopping, managing finances, etc.?: No Are you currently unemployed and looking for a job?: No Are you interested in more education?: No Please select the resources that you would like help with: None Currently or been in a relationship where the following occur: No concerns reported THRIVE Score: 0 AUDIT C Alcohol Use Questionnaire (AUDIT-C) 1. How often do you have a drink containing alcohol?: Never Total Score: 0 JOSH-7 AMB Questionnaire JOSH-7 Date JOSH - 7 assessed: 10/15/24 Feeling nervous, anxious, or on edge: 0 = Not at all Not being able to stop or control worryin = Not at all Worrying too much about different things: 0 = Not at all Trouble relaxin = Not at all Being so restless that it is hard to sit still: 0 = Not at all Becoming easily annoyed or irritable: 0 = Not at all Feeling afraid as if something awful might happen: 0 = Not at all Total JOSH-7 score (0-4 normal; 5-9 mild; 10-14 moderate; 15-21 severe): 0 Source: Developed by Gege lBanton Kurt Kroenke and colleagues, with an educational shea from [employer]. JOSH-7 Assessment Billing OJSH-7 Assessment Tool: JOSH-7 Assessment 49473 Review of Systems Const Denies body aches, Denies fatigue, Denies headache(s) and Denies malaise Eyes Details: Sees Dr. Carbajal yearly Denies itchy eyes ENT Reports no additional complaints, Denies vertigo, Denies dizziness and Denies headache(s) Card Denies palpitations and Denies dyspnea Resp Denies cough and Denies dyspnea GI Denies abdominal pain, Denies melena, Denies hematochezia, Denies change in bowel habits and Denies heartburn Denies hematuria, Denies urinary frequency, Denies dysuria and Reports urinary incontinence (occasional) Musc Denies muscle weakness, Denies numbness, Reports stiffness and Denies tingling Skin/Breast Denies breast pain, Denies breast mass and Denies rash Neuro Denies vertigo, Denies dizziness, Denies headache(s), Denies focal weakness, Denies numbness, Denies Sensory deficit (Neuro), Denies tingling and Denies paresthesias Psych Denies depression Endo Denies fatigue, Denies polydipsia, Reports polyuria and Denies palpitations Obi/Lymph Denies easy bruising Aller/Immun Denies urticaria, Denies itchy eyes and Denies seasonal rhinorrhea Physical exam (Primary Care) Vital Signs: Last Vital Signs Temp 98.2 F 10/15/24 13:48 Pulse 70 10/15/24 13:48 Resp 17 10/15/24 13:48 BP 112/70 10/15/24 13:48 Pulse Ox 94 10/15/24 13:48 Oxygen Delivery Method Room Air 10/15/24 13:48 BMI result Body Mass Index 55.7 BMI Assessment/Plan discussion: High BMI High, discussed plan: lifestyle, weight reduction, dietary and physical activity Tobacco/Smoking Status: Tobacco use Status Tobacco use date assessed 10/15/24 10/15/24 13:50 Patient Tobacco Use Status Former Tobacco user 10/15/24 13:50 e-Cigarette/Vaping Use Never Used 10/15/24 13:50 PHQ-9: PHQ-9 Score PHQ-9: Total score 0 10/15/24 14:16 Depression Screening Interpretation: Negative Thrive Assessment: Date of Thrive Assessment Date Thrive assessed 10/15/24 10/15/24 13:50 Currently or been in a relationship where the following occur: No concerns reported Const General: comfortable and no acute distress Nutritional Appearance: obese morbidly obese Orientation/consciousness: patient oriented x3 HENMT Ears: external ears normal General nose exam: Normal external nose present Mouth: Normal oral and palatal mucosa present, oropharynx normal and moist mucous membranes Eyes General: appearance normal, both eyes and all related structures Neck Neck: Yes full ROM, Yes no lymphadenopathy and Yes supple Resp Effort & Inspection: normal respiratory effort and able to speak in complete sentences Auscultation: clear to auscultation bilaterally Cardio Rate: regular rate Rhythm: regular rhythm Heart sounds: S1 normal heart sound present and S2 normal heart sound present GI Inspection: Yes obesity Palpation (GI): Soft to palpation, nontender, no guarding and no masses Auscultation: normal bowel sounds Back/Spine/Pelvis Cervical Spine: cervical ROM normal Thoracic/Lumbar Spine: thoracic and lumbar spine normal to inspection Skin General skin exam: no rashes or lesions noted Neuro General: patient oriented x3, tone normal, moves all extremities, Normal light touch and pain sensation and no focal motor deficits Cognition (Neuro): normal cognition Motor exam (neuro): 5/5 motor strength present throughout Sensory Exam: No Sensory deficit (Neuro) Extrem General: Yes full ROM, Yes no joint enlargement, Yes no pedal edema, Yes no calf tenderness and Yes normal gait Psych Mental Status: mental status grossly normal Affect: normal affect Results Reviewed Results Reviewed: rocio: Es Watters Age/Sex: 79/F : 1945 Unit#: [id number] Attend Dr: Candice Santoyo MD Re10/08/24 Status: DEP REF Location: [facility] Disch: SPEC : [id number] RAMANDEEP: 10/08/24 STATUS: COMP REQ : [id number] RECD: 10/08/[address]: Candice Santoyo MD COMP: 10/08/24 ENTERED: 10/08/[address]: ORDERED: Met Prof Fast, AST, ALT, Lipid Panel, Vitamin D 25-OH Test Result Flag Reference Sodium 140 135-145 mmol/L Potassium 4.0 3.3-5.1 mmol/L CL 104 96-108 mmol/L CO2 26 22-29 mmol/L Gap 14 12-20 BUN 20 H 9-16 mg/dL Creat 0.85 0.5-1.4 mg/dL eGFR > 60 Chronic Kidney Disease: Estimated GFR < 60 mL/min/1.73m2 Severe Kidney Disease: Estimated GFR < 15 mL/min/1.73m2 FBS 147 H 60-99 mg/dL A fasting glucose of 126 mg/dl or greater on more than one occasion is considered diagnostic of diabetes. CA 9.4 8.4-10.2 mg/dL AST (GOT) 25 5-31 U/L ALT (GPT) 19 0-31 U/L Triglyceride 122 <150 mg/dL Desirable Triglyceride: less than 150 mg/dL Borderline High Triglyceride 150-199 mg/dL High Triglyceride: 200-499 mg/dL Very High Triglyceride: greater than or equal to 5OO mg/dL Cholesterol 152 <200 mg/dL Desirable Cholesterol: less than 200 mg/dL Borderline High Cholesterol: 200-239 mg/dL High Cholesterol: greater than 239 mg/dL LDL Calculated 74 <100 mg/dL Desirable LDL: less than 100 mg/dL Near Optimal/Above Optimal LDL: 110-129 mg/dL Borderline High LDL: 130-159 mg/dL High LDL: 160-189 mg/dL Very High LDL: greater than or equal to 190 mg/dL HDL 54 >40 mg/dL Desirable HDL: greater than 40 mg/dL Note: This HDL assay may give artificially low results in patients with liver disease. Vitamin D 25-OH 98.3 >30 ng/mL Health Based Reference Values* < 20 ng/mL Deficient 20-30 ng/mL Insufficient > 30 ng/mL Sufficient Laboratory Tests 10/08/24 10/08/24 07:42 07:50 Estimat Average Glucose 140 Hemoglobin A1c % 6.5 H Urine Creatinine 16.74 Urine Microalbumin 26.0 Microalb/Creat Ratio 155.3 H Coding Level of Care Code Est Pt Level 4 (18351) Complex EM visit Add On G2211 Diagnoses CKD stage 3 secondary to diabetes E11.22; N18.30 Type 2 diabetes mellitus with stage 3 chronic kidney disease, without long-term current use of insulin, unspecified whether stage 3a or 3b CKD E11.22; N18.30 Chronic kidney disease stage: stage 3 (moderate) Chronic kidney disease stage 3 subtype: unspecified whether 3a or 3b Diabetes mellitus termite treater helper insulin use: without termite treater helper use Essential hypertension I10 Mixed dyslipidemia E78.2 Class 3 severe obesity due to excess calories with serious comorbidity and body mass index (BMI) of 50.0 to 59.9 in adult E66.01; Z68.43 Body mass index: BMI 50.0-59.9 Obesity classification: adult class 3 (BMI >= 40) Serious obesity comorbidity presence: with serious comorbidity Additional Codes PHQ-9 - 15455 - PHQ-9 Billing: Yes ([id number]) JOSH-7 Assessment Billing - JOSH-7 Assessment Tool: JOSH-7 Assessment 75071 ([id number]) Assessment & Plan Assessment & Plan (1) CKD stage 3 secondary to diabetes: Code(s): E11.22 - Type 2 diabetes mellitus with diabetic chronic kidney disease; N18.30 - Chronic kidney disease, stage 3 unspecified Category: Medical Plan: Reinforced importance of keeping diabetes mellitus, blood pressure and lipids under good control, avoidance of NSAIDs and staying well hydrated (2) Type 2 diabetes mellitus with chronic kidney disease: Code(s): E11.22 - Type 2 diabetes mellitus with diabetic chronic kidney disease Category: Medical Qualifiers: Chronic kidney disease stage: stage 3 (moderate) Chronic kidney disease stage 3 subtype: unspecified whether 3a or 3b Diabetes mellitus fci insulin use: without termite treater helper use Qualified Code(s): E11.22 - Type 2 diabetes mellitus with diabetic chronic kidney disease; N18.30 - Chronic kidney disease, stage 3 unspecified Plan: Recent lab results reviewed with patient, with sugar and hemoglobin A1c stable and at goal . Continue with Jardiance 25 mg daily and switched to Toujeo 40 units at night as Lantus is no longer covered by insurance, continue metformin a 1000 mg twice a day and will start on Ozempic 0.25 mg injected once a week subcutaneously. Repaglinide discontinued. Patient educated on proper administration of medication and some side effects that might occur which may include abdominal cramping, nausea change in bowel habits, increased risk for gallstones and pancreatitis, and sudden visual changes. continue to check fasting blood sugar at home, maintain log and bring to next appointment for review. Reinforced diabetic diet and regular exercise with patient. Up-to-date with her yearly diabetes retinopathy screening, sees Dr. Carbajal. Patient advised to inspect feet daily, for any signs of injury, callus or infection. Compliance with diet and regular exercise again stressed. Blood pressure goal is less than 130/80, goal LDL is less than 100 and goal hemoglobin A1c is less than 7% follow-up appointment made in December 2024, after fasting labs done. (3) Essential hypertension: Code(s): I10 - Essential (primary) hypertension Category: Medical Plan: Blood pressure at goal of less than 130/80. Continue lisinopril 30 mg daily and atenolol 150 mg as well as amlodipine 10 mg at night Reinforced importance of following a low sodium diet, getting regular exercise, and lowering stress levels. (4) Mixed dyslipidemia: Code(s): E78.2 - Mixed hyperlipidemia Category: Medical Plan: Reviewed recent fasting lipid profile with patient with levels within normal limits . Continue atorvastatin 20 mg daily and flaxseed oil 1000 mg 1 tablet twice a day , in addition to adherence to low-cholesterol diet and regular exercise, at least 30 minutes 3 to 4 times a week. Advised patient to make healthy food choices, eat more fruits, vegetables, whole grains, wild caught fish and low-fat dairy. Limit amount of meat and fried or fatty food products, as well as processed foods and fast foods. Follow-up scheduled with repeat f asting lipid panel in due in 2024 (5) Obesity due to excess calories: Code(s): E66.09 - Other obesity due to excess calories Category: Medical Qualifiers: Body mass index: BMI 50.0-59.9 Obesity classification: adult class 3 (BMI >= 40) Serious obesity comorbidity presence: with serious comorbidity Qualified Code(s): E66.01 - Morbid (severe) obesity due to excess calories; Z68.43 - Body mass index [BMI] 50.0-59.9, adult Plan: Started on Ozempic with directions on proper use, continue with adherence to healthy eating habits, and regular exercise. Will see her back for follow-up in December 2024 Orders: Orders Lipid Panel 01/14/25 E11.22 - Type 2 diabetes mellitus with diabetic chronic kidney disease, E66.01 - Morbid (severe) obesity due to excess calories, E78.2 - Mixed hyperlipidemia, I10 - Essential (primary) hypertension, N18.30 - Chronic kidney disease, stage 3 unspecified, Z68.43 - Body mass index [BMI] 50.0-59.9, adult Hemoglobin A1c 01/14/25 E11.22 - Type 2 diabetes mellitus with diabetic chronic kidney disease, E66.01 - Morbid (severe) obesity due to excess calories, E78.2 - Mixed hyperlipidemia, I10 - Essential (primary) hypertension, N18.30 - Chronic kidney disease, stage 3 unspecified, Z68.43 - Body mass index [BMI] 50.0-59.9, adult TSH reflex Free T4 01/14/25 E11.22 - Type 2 diabetes mellitus with diabetic chronic kidney disease, E66.01 - Morbid (severe) obesity due to excess calories, E78.2 - Mixed hyperlipidemia, I10 - Essential (primary) hypertension, N18.30 - Chronic kidney disease, stage 3 unspecified, Z68.43 - Body mass index [BMI] 50.0-59.9, adult Aspartate Amino Transferase 01/14/25.22 - Type 2 diabetes mellitus with diabetic chronic kidney disease, E66.01 - Morbid (severe) obesity due to excess calories, E78.2 - Mixed hyperlipidemia, I10 - Essential (primary) hypertension, N18.30 - Chronic kidney disease, stage 3 unspecified, Z68.43 - Body mass index [BMI] 50.0-59.9, adult Basic Metabolic Panel Fasting 01/14/25 E11.22 - Type 2 diabetes mellitus with diabetic chronic kidney disease, E66.01 - Morbid (severe) obesity due to excess calories, E78.2 - Mixed hyperlipidemia, I10 - Essential (primary) hypertension, N18.30 - Chronic kidney disease, stage 3 unspecified, Z68.43 - Body mass index [BMI] 50.0-59.9, adult Alanine Aminotransferase 01/14/25 E11.22 - Type 2 diabetes mellitus with diabetic chronic kidney disease, E66.01 - Morbid (severe) obesity due to excess calories, E78.2 - Mixed hyperlipidemia, I10 - Essential (primary) hypertension, N18.30 - Chronic kidney disease, stage 3 unspecified, Z68.43 - Body mass index [BMI] 50.0-59.9, adult Medications: New Ozempic (semaglutide) for 4 weeks 0.25 mg (0.368 mL) subcut QWEEK 3 mL 5RF 30 days NS E11.22 - Type 2 diabetes mellitus with diabetic chronic kidney disease, N18.30 - Chronic kidney disease, stage 3 unspecified insulin glargine U-300 conc (Toujeo Max U-300 SoloStar) 40 units (0.1333 mL) subcut DAILY 6 mL 2RF 3 months E11.22 - Type 2 diabetes mellitus with diabetic chronic kidney disease, N18.30 - Chronic kidney disease, stage 3 unspecified Discontinued insulin glargine (Lantus Solostar U-100 Insulin) Discontinued Reason: Insurance Denied 50 units (0.5 mL) subcut QAM 45 mL 3RF E11.22 - Type 2 diabetes mellitus with diabetic chronic kidney disease, N18.30 - Chronic kidney disease, stage 3 unspecified repaglinide administer within 15minutes of a meal or snack Discontinued Reason: Doctor's Order 2 mg PO TID 30 days 90 tabs 5RF
== END 2024-10-15 14:36 | disposition home or self-care (01) ==
LOC: HO.HMCC 13:11
PROVIDERS: PCP Internal Medicine; Visit Provider Internal Medicine
DX: I12.9 Hypertensive chronic kidney disease with stage 1 through stage 4 chronic kidney disease, or unspecified chronic kidney disease (principal); E11.22 Type 2 diabetes mellitus with diabetic chronic kidney disease; N18.30 Chronic kidney disease, stage 3 unspecified; E66.01 Morbid (severe) obesity due to excess calories; Z68.43 Body mass index [BMI] 50.0-59.9, adult; E78.2 Mixed hyperlipidemia

== ENCOUNTER → 2024-10-15 13:10 | Outpatient (BNVA) | payer MEDICARE, SELFPAY | PROVIDERS: PCP Internal Medicine; Visit Provider Internal Medicine | DX: I12.9 Hypertensive chronic kidney disease with stage 1 through stage 4 chronic kidney disease, or unspecified chronic kidney disease (principal); E11.22 Type 2 diabetes mellitus with diabetic chronic kidney disease; N18.30 Chronic kidney disease, stage 3 unspecified; E78.2 Mixed hyperlipidemia; E66.01 Morbid (severe) obesity due to excess calories; Z68.43 Body mass index [BMI] 50.0-59.9, adult; Z71.3 Dietary counseling and surveillance | CPT/HCPCS: 96127; 99212 ==

== ENCOUNTER 2024-11-12 09:30 | Outpatient (AMB) | payer MEDICARE, SELFPAY ==
[2024-11-12 09:34] VITALS: BP 122/82; PULSE 82; O2SAT 98; BMI 55.8
--- NOTE | 2024-11-12 09:34 | HO.NEPHOV ---
Vital Signs 11/12/24 09:34 Height 4 ft 2 in Weight 198 lb 6 oz BMI 55.8 BP 122/82 Blood Pressure Location Rt brachial Position Sitting Pulse 82 Pulse Source Pulse Oximeter Pulse Oximetry (%) 98 Oxygen Delivery Method Room Air Intake Visit Reasons: Essential hypertension/ Unable to reach Allergies No Known Allergies [No Known Allergies*] Allergy (Verified 11/12/24 09:36) Medication List - Last Reconciled 11/12/24 by Chay Dominique MD acetaminophen ER (Tylenol Arthritis Pain) 650 mg PO Q12H amlodipine 10 mg PO DAILY atenolol 150 mg (1.5 x 100 mg) PO DAILY 90 days atorvastatin 20 mg PO DAILY blood sugar diagnostic (Elevate ResearchTouch Verio test strips) Three times a day blood-glucose meter (Elevate ResearchTouch Verio Meter) As directed cranberry extract 250 mg PO DAILY empagliflozin (Jardiance) 25 mg PO DAILY flaxseed oil 1,000 mg PO BID insulin glargine U-300 conc (Toujeo Max U-300 SoloStar) 40 units (0.1333 mL) subcut DAILY 3 months lancets Check blood sugar 3 times a day before meals topical 3 times a day lisinopril 30 mg PO DAILY metformin 1,000 mg PO BIDWMEAL 3 months multivitamin with minerals 1 cap PO DAILY omega 2-nmp-zyg-fish oil 1,200 (144-216) mg (Fish Oil) caps PO Ozempic (semaglutide) 0.25 mg (0.368 mL) subcut QWEEK 30 days NS pen needle, diabetic (BD Ultra-Fine Short Pen Needle) Use daily as directed subcut daily; HPI Comments Details: Erica is a elderly woman with his obesity and hypertension with minimal proteinuria. She is here for same and will follow-up. A1C has improved - down to 6.5% BP well controlled Recently diabetic meds have benen changed due to insurance issues VIT D on hold due to high levels Still with edema Ozempic was started last week PFSH Medical History Surgical menopause Gait instability Papanicolaou smear declined Colonoscopy refused Obesity due to excess calories Type 2 diabetes mellitus with chronic kidney disease Mixed dyslipidemia Essential hypertension DUB (dysfunctional uterine bleeding) CKD stage 3 secondary to diabetes Mammogram declined Surgical History Hx of hysterectomy S/P LOLIS-BSO Family History Father CAD (coronary artery disease) Mother Diabetes mellitus Lung cancer Sister Diabetes mellitus Social History Household Members: None Housing: House Alcohol intake: never Patient Tobacco Use Status: Former Tobacco user Years Smoked: 14 yrs e-Cigarette/Vaping Use: Never Used service: No Current occupational status: employed Cognitive needs: No Hearing needs: No Vision needs: Yes Physical Exam Vital Signs: Last Vital Signs Pulse 82 11/12/24 09:34 BP 122/82 11/12/24 09:34 Pulse Ox 98 11/12/24 09:34 Oxygen Delivery Method Room Air 11/12/24 09:34 BMI result Body Mass Index 55.8 Awake. Comfortable. Neck is supple. Mucosa moist. Lungs bilateral scattered rhonchi. Heart S1-S2 heard no gallop. Abdomen soft. Extremities 1 to 2 + edema. No involuntary movements. No myoclonus. Results Reviewed Nephrology Results: Sodium 140 mmol/L (135-145) 10/08/24 Potassium 4.0 mmol/L (3.3-5.1) 10/08/24 Chloride 104 mmol/L (96-108) 10/08/24 Carbon Dioxide 26 mmol/L (22-29) 10/08/24 BUN 20 mg/dL (9-16) H 10/08/24 Creatinine 0.85 mg/dL (0.5-1.4) 10/08/24 Calcium 9.4 mg/dL (8.4-10.2) 10/08/24 Urine Creatinine 16.74 mg/dL 10/08/24 Assessment & Plan Assessment & Plan (1) Type 2 diabetes mellitus with chronic kidney disease: Code(s): E11.22 - Type 2 diabetes mellitus with diabetic chronic kidney disease Category: Medical Qualifiers: Diabetes mellitus detention insulin use: without keno terminal operator use Chronic kidney disease stage: stage 3 (moderate) Chronic kidney disease stage 3 subtype: unspecified whether 3a or 3b Qualified Code(s): E11.22 - Type 2 diabetes mellitus with diabetic chronic kidney disease; N18.30 - Chronic kidney disease, stage 3 unspecified Plan: Goals of maintain the hemoglobin A1c less than 7%. The A1c is gradually trending down. I have encouraged her to monitor her diet and try to achieve a hemoglobin A1c of less than 7%. She will also benefit from weight loss. (2) Essential hypertension: Code(s): I10 - Essential (primary) hypertension Category: Medical Plan: Blood pressure is acceptable today. Increase fluids and stay on low-sodium diet. She should lose weight. Agree with Daysi Encouraged to monitoring of blood pressure at home as well (3) Proteinuria: Code(s): R80.9 - Proteinuria, unspecified Category: Medical Qualifiers: Proteinuria type: unspecified Qualified Code(s): R80.9 - Proteinuria, unspecified Plan Edema_ Chronic- asymptomatic Amlodipine could be contributing. Orders: Orders Basic Metabolic Panel 6 Months N18.30 - Chronic kidney disease, stage 3 unspecified Coding Level of Care Code Est Pt Level 4 (35985) Diagnoses Type 2 diabetes mellitus with stage 3 chronic kidney disease, without long-term current use of insulin, unspecified whether stage 3a or 3b CKD E11.22; N18.30 Diabetes mellitus keno terminal operator insulin use: without keno terminal operator use Chronic kidney disease stage: stage 3 (moderate) Chronic kidney disease stage 3 subtype: unspecified whether 3a or 3b Essential hypertension I10 Proteinuria, unspecified type R80.9 Proteinuria type: unspecified
--- OUTSIDE RECORDS SUMMARY | 2024-11-12 10:31 | XMS_ITS ---
Author Organization [facility] [place] Address [address] [facility] [place] [address] Care Team Providers Care Blind Aide Name Role Phone Natanael CLEMENT, Candice Esquivel Primary Care Provider Un available Black, June Unavailable [phone] Allergies No Known Allergies REASON FOR VISIT [...] Problem Acquired hammer toe of right foot (0273331949250 105) Other hammer toe(s) (acquired), right foot (M20.41) Active confirmed Problem Acquired hammer toe of left foot (5044996587564 103) Other hammer toe(s) (acquired), left foot (M20.42) Active confirmed Vital Signs Height 4ft 10in in 08/17/2024 Weight 202 lbs 08/17/2024 BMI 42.21 kg/m2 08/17/2024 Blood pressure systolic 146 mm Hg 08/17/19 25 Blood pressure diastolic 70 mm Hg 025 Procedures Procedure Date Ordered Date Performed Result Body Sit e 28975-UAXP SKIN LESIONS, OVER 4 08/17/2024 N/A V6649-GWKSEPTL DYSTROPHIC NAILS ANY # 08/17/2024 N/A Encounters Encounter Location Date Provider Diagnosis [facility] [place] [address] [place] [address] 08/17/2024 June Black Type 2 diabetes mellitus [...] INSTRUCTIONS.pdf) Pending Test Test Name Order Date 40156-ZRBN SKIN LESIONS, OVER 4 08/17/19 D1856-ZKORYQLG DYSTROPHIC NAILS ANY # Next Appt Details Follow Up: 3 Months, Reason: Provider Name:June Hinojosa , 11/19/2024 01:30:00 PM, [address] [place] [address], [id number], Procedure Notes * Category Sub-Category Detail Notes [...] instrumentation by the physician of record - 03685 Nail Reduction Nail Reduction (-27) Trimming o [...] bed tissue - G0127 Progress Notes * Emily WATTERS ADOB: [birth year] (78 yo F)Acc No.[id number]:08/17/2024 Progress Note Patient:?Emily WATTERS Provider:?June Hinojosa DPM :1945???Age:78 Y???Sex:Female D ate:08/17/2024 Address:[address] [place] [address], [id number] Pcp:Adrian Jameson Subjective: * Chief Complaints: * [...] ultrasound 02/16/16Sebatious cyst removal on chest - [facility] [place] 04/24/2018 * Family History:?Mother: dece ased, poor [...] walking. ?Marital status: single. 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 ???Drug/Alcohol:?AUDIT-C (Standard)?Did you have a drink [...] 2.?Type 2 diabetes mellitus with diabetic polyneuropathy?Procedure: 25339-VCDQ SKIN LESIONS, OVER 4 ?Procedure: D8534-WZMIKAMC DYSTROPHIC NAILS ANY # * Procedures:?Keratoma Treatment:?Parring [...] instrumentation by the physician of record - 01174.?Nail Reduction:?Nail Reduction?(-27) Trimming of all dystrophic nails [...] or bed tissue - G0127.? * Procedure Codes:?33479 TRIM SKIN LESIONS, OVER 4, Modifiers: XS [...] Provider:?June Hinojosa DPM Date:?2024 Generated for Nydia delgado/Sukumar/eTransmitting on:?11/12/2024 10:31 AM EDT History and Physical Notes * [...] (s),5,B/LMidfoot,Left SUB MTH (s) 1 B/L Orthopedic FOOTWEAR EVALUATION: worn, non-s upportive, shoe gear properties exacerbate patient's foot/toe deformity [...]
--- OUTSIDE RECORDS SUMMARY | 2024-11-12 10:31 | XMS_ITS ---
Author Organization [facility] [place] Address [address] [facility] [place] [address] Care Team Providers Care Medical Staff Manager Name Role Phone Natanael CLEMENT, Candice Esquivel Primary Care Provider Un available Black, June Unavailable [phone] Allergies No Known Allergies REASON FOR VISIT [...] Polyneuropathy due to type 2 diabetes mellitus (556847784) Type 2 diabetes mellitus with diabetic polyneuropathy (E11.42) Active confirmed Vital Signs Height 4ft 10in in 01/30/2024 Weight 196 lbs 01/30/2024 BMI 40.96 kg/m2 01/30/2024 Blood pressure systolic 140 mm Hg 01/30/20 24 Blood pressure diastolic 80 mm Hg 024 Procedures Procedure Date Ordered Date Performed Result Body Sit e 29174-HVUC SKIN LESIONS, OVER 4 01/30/2024 N/A D3724-WYLTNMZV DYSTROPHIC NAILS ANY # 01/30/2024 N/A Encounters Encounter Location Date Provider Diagnosis [facility] [address] [address] 01/30/2024 June Hinojosa Type 2 diabetes mellitus with diabetic polyneuropathy E11.42 Assessments Encounter Date Diagnosis (ICD Code) Assessment Notes Treatment Notes Treatment Clinical Notes Section Notes 01/30/2024 Type 2 diabetes mellitus with diabetic polyneuropathy (ICD-10 - E11.42) Plan Of Treatment Pending Test Test Name Order Date 59855-WYTX SKIN LESIONS, OVER 4 01/30/20 24 A3769-VSYYIJLN DYSTROPHIC NAILS ANY # Next Appt Details Follow Up: prn, Reason: Provider Name:June Hinojosa , 11/19/2024 01:30:00 PM, [address] [place], [address], Procedure Notes * Category Sub-Category Detail Notes Keratoma Treatment Parring or Cutting o f Benign Hyperkeratotic Lesion(s) 65724 ( >4 Lesions) - The Benign hyperkeratotic [...] Emily WATTERS ADOB: [birth year] (78 yo F)Acc No.[id number]:01/30/2024 Progress Note Patient:?Emily Watters A Provider:?June Hinojosa DPM :1945???Age:78 Y???Sex:Female D ate:01/30/2024 Address:[address] [place] [address] Pcp:dArian Jameson Subjective: * Chief Complaints: * ???At Risk Footcare * HPI: ???At Risk footcare:?Pt States Last PCP Visit:?Date?12/19/2023 * Medical History:? * Surgical History:?hysterecto my 1996 * Hospitalization/Major Diagno stic Procedure:?liver ultrasound 02/16/ebatious cyst removal on chest - [facility] [place] 04/24/2018 * Family History:?Mother: dece ased, poor [...] Procedures:?Keratoma Treatment:?Parring or Cutting of Benign Hyperkeratotic Lesion(s)?09226 ( >4 Lesions) - The Benign hyperkeratotic lesions, as described above were pared, and/or cut utilizing a sterile #15 blade, tissue nippers, and/or dremel.?Nail Reduction:?Nail Reduction?Trimming of dystrophic nails performed to reduce/remove overall nail length and girth, by manual and electrical means with use of a nail nipper and/or dremel, to more viable healthy nail plate or bed tissue 6-10 (G0127).? * Procedure Codes:?86030 TRIM SKIN LESIONS, OVER 4, Modifiers: XS G0127 TRIMMING DYSTROPHIC NAILS ANY #, Modifiers: XS * Follow Up:?prn * Images: * Sign off status: Completed true * Provider:?June Hinojosa DPM Date:?2023 Generated for Kristii ng/Aniketg/eTransmitting on:?11/12/2024 10:31 AM EDT History and Physical [...]
--- OUTSIDE RECORDS SUMMARY | 2024-11-12 10:31 | XMS_ITS ---
Author Organization [facility] Address [address] [place] [address] Care Team Providers Care Lubrication Supervisor Name Role Phone Natanael CLEMENT, Candice Esquivel Primary Care Provider Un available Black, June Unavailable [phone] Allergies No Known Allergies REASON FOR VISIT [...] Ordered Date Performed Result Body Sit e 39520-TYTK SKIN LESIONS, OVER 4 04/30/2024 N/A V5170-BFGMAAHD DYSTROPHIC NAILS ANY # 04/30/2024 N/A Encounters Encounter Location Date Provider Diagnosis [facility] [address] [place] [address] 04/30/2024 June Hinojosa Type 2 diabetes mellitus with diabetic polyneuropathy E11.42 Assessments Encounter Date Diagnosis (ICD Code) Assessment Notes Treatment Notes Treatment Clinical Notes Section Notes 04/30/2024 Type 2 diabetes mellitus with diabetic polyneuropathy (ICD-10 - E11.42) Plan Of Treatment Pending Test Test Name Order Date 65069-NEGT SKIN LESIONS, OVER 4 04/30/20 24 R4025-ZJXOOXAF DYSTROPHIC NAILS ANY # Next Appt Details Follow Up: prn, Reason: Provider Name:June Hinojosa , 11/19/2024 01:30:00 PM, [address] [place], [address], Procedure Notes * Category Sub-Category Detail Notes Keratoma Treatment Parring or Cutting o f Benign Hyperkeratotic Lesion(s) 16649 ( >4 Lesions) - The Benign hyperkeratotic [...] Emily WATTERS ADOB: [birth year] (78 yo F)Acc No.[id number]:04/30/2024 Progress Note Patient:?Emily WATTERS A Provider:?June Hinojosa DPM :1945???Age:78 Y???Sex:Female D ate:04/30/2024 [facility] [place] [id number] Pcp:Adrian Jameson Subjective: * Chief Complaints: * ???At Risk Footcare * HPI: ???At Risk footcare:?Pt States Last PCP Visit:?Date?04/16/2024 * Medical History:? * Surgical History:?hysterecto my 1996 * Hospitalization/Major Diagno stic Procedure:?liver ultrasound 02/16/16Sebatious cyst removal on chest - [facility] [place] * Family History:?Mother: dece ased, poor [...] walking. ?Marital status: single. 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 * Medications:?TakingMultivita min - Tablet 1 [...] Procedures:?Keratoma Treatment:?Parring or Cutting of Benign Hyperkeratotic Lesion(s)?52533 ( >4 Lesions) - The Benign hyperkeratotic lesions, as described above were pared, and/or cut utilizing a sterile #15 blade, tissue nippers, and/or dremel.?Nail Reduction:?Nail Reduction?Trimming of dystrophic nails performed to reduce/remove overall nail length and girth, by manual and electrical means with use of a nail nipper and/or dremel, to more viable healthy nail plate or bed tissue 6-10 (G0127).? * Procedure Codes:?67540 TRIM SKIN LESIONS, OVER 4, Modifiers: XS [...]
--- OUTSIDE RECORDS SUMMARY | 2024-11-12 10:31 | XMS_ITS | Clinical Summary ---
Author Organization [facility] Address [address] [place] [address] Phone Care Team Providers Care Tool Distributor Name Role Phone Elsy Santoyo MD Primary Care Provider [phone] Allergies No known active allergies Medications Multiple Vitamin (MULTIVITAMIN ADULT PO) Take 1 capsule by mouth 1 (one) time each day Active Campbell-3 Fatty Acids (Fish Oil Concentrate) 1000 MG [...] Due Date Last Done Comments Pneumococcal Vaccine: 50+ Ye ars (1 of 2 - PCV) 1966 Diabetes: Hemoglobin A1C 08/21/2020 03/17/2020 Diabetes: Ophthalmology Exam 08/21/2020 Diabetes: Pedal Pulse Checked 08/21/2020 Diabetes: Sensory Foot Exam 08/21/2020 Diabetes: Visual Foot Exam 08/21/2020 Influenza Vaccine (Season Ended) 2025 Hepatitis B Vaccine Aged Out No longe [...] average glucose, using the formula of the J6G-Hqaxmcn Average Glucose study (ADAG), Diabetes Care, Vol.31,#8, Feb. 2007 03/17/2020 6:20 AM EDT Elsy Santoyo MD LAB BLOOD ORDERABLES Final Result FRANCINE from Last 3 Months or Most Recently Relevant to Health Maintenance Insurance [facility] PPO Paul([id number]) [facility] PPO Blue([id number]) Care Teams Tool Distributor Relationship Specialty Start Date End Date Elsy Santoyo MD [address] [place] [address] PCP - General Internal Medicine 04/14/21
--- OUTSIDE RECORDS SUMMARY | 2024-11-12 10:31 | XMS_ITS | Patient Health Record ---
[facility] Address [address] [place] [address] Care Team Providers Care Quarter Backer Name Role Phone Natanael CLEMENT, Candice Esquivel Primary Care Provider Un available Black, June Unavailable [phone] Allergies No Known Allergies Results Component Value Reference Range Notes HEMOGLOBIN A1C (GLYCOHEMOGLO BIN) Reviewed date:01/30/2024 02:05:19 PM Interpretation: Performing Lab: Notes/Report: HEMOGLOBIN A1C % (HH) 7.5 HEMOGLOBIN A1C (GLYCOHEMOGLO BIN) Reviewed date:08/17/2024 03:12:46 PM Interpretation: Performing Lab: Notes/Report: HEMOGLOBIN A1C % (HH) 7.0 HEMOGLOBIN A1C (GLYCOHEMOGLO BIN) Reviewed date:04/30/2024 02:50:50 PM Interpretation: Performing Lab: Notes/Report: TOTAL HEMOGLOBIN (HGBA1C) 7.0 Reason For Referral No Information Medications Medication SIG (Take, Route, Frequency, Duration) Notes Start Date End Date Status Flaxseed Oil 1000 MG as directed Orally Active Fish Oil 1200 MG as directed Orally 2x a day Active Atenolol 150 Once a day Active Lantus 100 UNIT/ML 45 units Subcutaneous Active zzzCompression Stockings 20-30mm Hg . . . for . Not-[place] ing Lisinopril 30 MG 1 tablet Orally Once a day Active Trulicity 1.5 MG/0.5ML as directed Subcutaneous once weekly Not-Taking Atorvastatin Calcium 20 MG 1 tablet Orally Once a day for 30 day(s) Active Januvia 100 MG 1 tablet Orally Once a day for 30 day(s) Not-Taking Jardiance 25 MG 1 tablet Orally Once a day Active Atenolol 50 MG 3 tablet Orally Once a day Not-Taking amLODIPine Besylate 10 MG 1 tablet Orally Once a day Active Aspirin 81 MG Orally Not-Ta prabha vitamin Active Lisinopril-hydroCHLOROt hiazide Not-Taking Multivitamin - 1 tablet Orally Once a day Active Tylenol 325 MG 1 tablet as needed Orally every 6 hrs Active BD Pen Needle Short U/F Not-Taking metFORMIN HCl 1000 MG 1 tablet with a me al Orally Once a day Active Citracal + D Active Norvasc 2.5 MG 1 tablet Orally Once a day Not-Taking Repaglinide 2 MG 1 tablet 15 to 30 minutes before meals Orally Once a day Active Cranberry 250 MG as directed Orally Active Extra Depth Orthopedic Shoes (1 Pair) with Customized Heat Molded Multidensity Innersoles (3 Pair) as directed Dx: NIDDM/Polyneuropathy (E11.42), Hammertoe Foot Deformity (M20.41,M20.42), Preulcerative Skin Lesion(s) (L85.1 08/17/2024 Active Immunizations Vaccine Route Administration Date Status Comme nts COVID-19 Pfizer BioNTech Vaccine Unknown 03/17/2021 Administered First Dose: 02/24/2021 Influenza Unknown 06/02/2015 Administered Influenza Unknown 04/05/2016 Administered Influenza Unknown 03/21/2017 Administered Influenza Unknown 06/10/2018 Administered Influenza Unknown 03/16/2019 Administered Influenza Unknown 03/04/2020 Administered Influenza Unknown 03/17/2021 Administered Influenza Unknown 03/23/2022 Administered Influenza Unknown 03/29/2023 Administered Social History Tobacco Use: Social History Observation [...] Problem Acquired hammer toe of right foot (8473362427574640 ) Other hammer toe(s) (acquired), right foot (M20.41) Active confirmed Problem Acquired hammer toe of left foot (3231358465940834 ) Other hammer toe(s) (acquired), left foot (M20.42) Active confirmed Problem Polyneuropathy due to type 2 diabetes mellitus (070275569) Type 2 diabetes mellitus with diabetic polyneuropathy (E11.42) Active confirmed Vital Signs Blood pressure diastolic 70 mm Hg 08/17/2024 Height 4ft 10in in 08/17/2024 Blood pressure systolic 146 mm Hg 08/17/2024 Weight 202 lbs 08/17/2024 BMI 42.21 kg/m2 08/17/2024 Procedures Procedure Date Ordered Date Performed Result Body Sit e 08750-DJLW SKIN LESIONS, OVER 4 01/30/2024 N/A H2674-EMDIUCJW DYSTROPHIC NAILS ANY # 01/30/2024 N/A 40677-PDNT SKIN LESIONS, OVER 4 04/30/2024 N/A C8855-PKZYZIWY DYSTROPHIC NAILS ANY # 04/30/2024 N/A 27145-CNAQ SKIN LESIONS, OVER 4 08/17/2024 N/A M5010-QDFFHXQY DYSTROPHIC NAILS ANY # 08/17/2024 N/A Encounters Encounter Location Date Provider Diagnosis [facility] [address] 01/30/2024 June Black Type 2 diabetes mellitus with diabetic polyneuropathy E11.42 [facility] [address] 04/30/2024 June Black Type 2 diabetes mellitus with diabetic polyneuropathy E11.[address] [address] 08/17/2024 June Black Type 2 diabetes mellitus with diabetic polyneuropathy E11.42 ; Other hammer toe(s) (acquired), right foot M20.41 and Other hammer toe(s) (acquired), left foot M20.42 Assessments Encounter Date Diagnosis (ICD Code) Assessment Notes Treatment Notes Treatment Clinical Notes Section Notes 01/30/2024 Type 2 diabetes mellitus with diabetic polyneuropathy (ICD-10 - E11.42) 04/30/2024 Type 2 diabetes mellitus with diabetic polyneuropathy (ICD-10 - E11.42) 08/17/2024 Type 2 diabetes mellitus with diabetic polyneuropathy (ICD-10 - E11.42) 08/17/2024 Other hammer toe(s) (acquired), right foot (ICD-10 - M20.41) Patient Educated with: DIABETIC FOOT CARE INSTRUCTIONS. pdf (DIABETIC FOOT CARE INSTRUCTIONS. pdf) 08/17/2024 Other hammer toe(s) (acquired), left foot (ICD-10 - M20.42) Plan Of Treatment Pending Test Test Name Order Date X ray : Foot, left 3V 03/12/2016 77674-UTEXZUE NAIL, 6 OR MORE 01/14/2020 67768-FWIFDOO NAIL, 6 OR MORE 03/17/2020 76651-IQSYRYO NAIL, 6 OR MORE 05/19/2020 12092-QLPVVMI NAIL, 6 OR MORE 08/11/2020 80532-ZXEZCPI NAIL, 6 OR MORE 08/06/2019 53074-UGNACSF NAIL, 6 OR MORE 11/24/2020 36020-USLZEZH NAIL, 6 OR MORE 04/23/2011 99370-LFZTGWG NAIL, 6 OR MORE 07/02/2011 72923-UIJVMVK NAIL, 6 OR MORE 09/17/2011 48000-HZEMNQD NAIL, 6 OR MORE 11/26/2011 82562-IZTUWGR NAIL, 6 OR MORE 02/06/2012 90486-HSOBWSH NAIL, 6 OR MORE 04/23/2012 09401-PPRCLDH NAIL, 6 OR MORE 06/30/2012 36961-NVCHMAA NAIL, 6 OR MORE 2012 70603-FXKDLWJ NAIL, 6 OR MORE 01/12/2013 75875-AOFGXQH NAIL, 6 OR MORE 10/27/2012 50592-CJQGODC NAIL, 6 OR MORE 03/30/2013 74664-EQDGRPH NAIL, 6 OR MORE 06/15/2013 65542-GEFPJZL NAIL, 6 OR MORE 09/09/2013 16596-JWZSIFE NAIL, 6 OR MORE 11/11/2013 43402-QJAJFXR NAIL, 6 OR MORE 01/28/2014 67016-CYLCIZL NAIL, 6 OR MORE 04/01/2014 99591-TNGYOHI NAIL, 6 OR MORE 06/21/2014 42356-TQOABPG NAIL, 6 OR MORE 09/08/2014 55813-EQUYRLT NAIL, 6 OR MORE 02/02/2021 10987-OLODFQG NAIL, 6 OR MORE 05/18/2021 69047-MZMUOVB NAIL, 6 OR MORE 08/31/2021 52785-SBYVEIY NAIL, 6 OR MORE 11/09/2021 53669-QGNLZUY NAIL, 6 OR MORE 02/08/2022 59419-YDGKZZW NAIL, 6 OR MORE 08/23/2022 20100-HWYSCFE NAIL, 6 OR MORE 12/06/2022 22743-HEGQWLN NAIL, 6 OR MORE 03/21/2023 15466-AWGAZIH NAIL, 6 OR MORE 06/27/2023 51726-YMAGVTC NAIL, -5 03/21/2015 62094-AMUBPJJ NAIL, -05/30/2015 30797-IRKYXBN NAIL, -07/25/2015 10648-JJYCBZU NAIL, -10/05/2015 38849-ZGQHGQH NAIL, -12/14/2015 82679-VVNGGXE NAIL, -03/12/2016 89609-GPNGTEN NAIL, -01/01/2019 94435-AZKSHFG NAIL, -05/18/2019 08485-VITOXEV NAIL, -03/13/2018 64210-FCHUZNS NAIL, -06/05/2018 02212-AZBKJSX NAIL, -08/14/2018 37351-TQYMDMJ NAIL, -10/23/2018 52886-YGFVBRW NAIL, -03/09/2019 32037-YLIXQZD NAIL, -05/28/2016 72758-YOQQAIQ NAIL, -08/27/2016 21659-UCAKBCF NAIL, -11/12/2016 54134-GVUPDWG NAIL, -01/07/2017 20402-CJEBUAT NAIL, -03/18/2017 56026-RDNVIDI NAIL, -05/20/2017 09199-AMAOVZJ NAIL, -08/12/2017 09342-EGUVXXN NAIL, -10/24/2017 90301-SOIBGNU NAIL, -01/02/2018 35202-Yljnokca Plate 10/24/2017 43315-Gdxjieeo Plate 05/20/2017 47594-Fkddoard Plate 03/18/2017 40883-Jkundvdj Plate 11/12/2016 09405-Wsttxxig Plate 08/27/2016 11212-Whcizffi Plate 05/28/2016 15642-Rqvueina Plate 03/09/2019 12298-Zdncuqok Plate 08/14/2018 30772-Tnhoekvr Plate 03/13/2018 91429-Mkcycshe Plate 08/06/2019 24836-Cxjaipyx Plate 01/14/2020 49972-Kvuoorab Plate 11/24/2020 09416-Tpfrdmfn Plate 08/11/2020 04559-Klclviey Plate 03/12/2016 26613-Vhumaiui Plate 12/14/2015 06642-Lcbzgvsh Plate 10/05/2015 11753-Xbgyxjpu Plate 03/21/2015 81911-Ldzuabuu Plate 09/08/2014 58259-Bfvugtrb Plate 11/15/2014 92915-Jgttrzbg Plate 01/17/2015 26248-Zasvywgt Plate 06/21/2014 66632-Ehlkkljv Plate 04/01/2014 92522-Kjymdilj Plate 01/28/2014 29362-Qefghbtu Plate 11/11/2013 05842-Bziitzuv Plate 09/09/2013 65366-Yslexfky Plate 06/15/2013 90732-Isckilnq Plate 10/27/2012 86326-Barkvyvm Plate 03/30/2013 62789-Gxjmgbgh Plate 01/12/2013 97218-Ujnvgfdr Plate 2012 60834-Bweqdvvp Plate 06/30/2012 15369-Jnccxdyl Plate 02/06/2012 24813-Zirbtlyw Plate 11/26/2011 03066-Uqfubnaf Plate 03/21/2023 47539-Ilxdughj Plate 08/31/2021 29765-Cxxefsmq Plate 05/10/2022 55568-Dxwgrvmq Plate 11/09/2021 15634-Arwedjlz Plate 02/02/2021 35906-Uarkaija Plate 05/18/2021 84076-Qphsarmj Plate Each Additional 95070-Sbwrubyc Plate Each Additional 59857-Cdeqklqp Plate Each Additional 01/2012 98123-Rcwjnilv Plate Each Additional 31722-Ylaccpgs Plate Each Additional 04/2012 85977-Oohpyzma Plate Each Additional 05/2013 25897-Ksvmuilt Plate Each Additional 25444-Pmnbqubn Plate Each Additional 03/2013 91868-Inmdcpfi Plate Each Additional 02/2013 48939-Jbsszcfw Plate Each Additional 03624-Kdeeolbl Plate Each Additional 02884-Cvjawsbq Plate Each Additional 04/2014 52847-Yucydigv Plate Each Additional 33129-Gulyaaoi Plate Each Additional 73334-Naeihtra Plate Each Additional 31720-Yzsdvpic Plate Each Additional 12/2020 59826-Pzehzhky Plate Each Additional 45703-Iqpfegct Plate Each Additional 75004-Tftiygsa Plate Each Additional 39110-Efzepzjc Plate Each Additional 09423-Sttzoqpu Plate Each Additional 11/2017 59303 I&D ABSCESS- SIMPLE,SINGLE 015 43980 I&D ABSCESS- SIMPLE,SINGLE 015 42366 I&D ABSCESS- SIMPLE,SINGLE 014 16710 I&D ABSCESS- SIMPLE,SINGLE 015 38142 I&D ABSCESS- SIMPLE,SINGLE 013 70067 I&D ABSCESS- SIMPLE,SINGLE 013 57867 I&D ABSCESS- SIMPLE,SINGLE 013 55580 I&D ABSCESS- SIMPLE,SINGLE 013 78735 I&D ABSCESS- SIMPLE,SINGLE 012 40399 I&D ABSCESS- SIMPLE,SINGLE 012 74341 I&D ABSCESS- SIMPLE,SINGLE 011 89002- I&D ABSCESS-COMPLICATED,MULTI 07/2013 18449-YLDX SKIN LESIONS, OVER 4 03/21/20 23 64892-NHYK SKIN LESIONS, OVER 4 10/07/19 24 16446-PDQF SKIN LESIONS, OVER 4 06/27/20 23 80888-KBEF SKIN LESIONS, OVER 4 08/17/19 25 24198-EOXX SKIN LESIONS, OVER 4 01/30/20 24 94493-ZCDJ SKIN LESIONS, OVER 4 04/30/20 24 95903-IPYE SKIN LESIONS, OVER 4 05/10/20 22 32758-JPEY SKIN LESIONS, OVER 4 08/23/19 23 12541-BPPT SKIN LESIONS, OVER 4 12/07/19 23 96293-NBBK SKIN LESIONS, 2 TO 4 02/09/20 00732-BJRX SKIN LESIONS, 2 TO 4 05/18/20 21 69000-YCZM SKIN LESIONS, 2 TO 4 11/10/19 22 98439-OAGZ SKIN LESIONS, 2 TO 4 08/31/19 22 98090-ISPL SKIN LESIONS, 2 TO 4 10/05/19 16 10026-SEFG SKIN LESIONS, 2 TO 4 12/14/19 16 00881-HIKT SKIN LESIONS, 2 TO 4 03/12/20 16 61306-AWSR SKIN LESIONS, 2 TO 4 10/25/19 18 17017-DADV SKIN LESIONS, 2 TO 4 01/03/20 18 82034-RDDM SKIN LESIONS, 2 TO 4 03/13/20 18 64254-FFGB SKIN LESIONS, 2 TO 4 05/20/20 17 79411-BGLU SKIN LESIONS, 2 TO 4 08/12/19 18 94964-DONJ SKIN LESIONS, 2 TO 4 05/28/20 16 80756-ROJP SKIN LESIONS, 2 TO 4 08/27/19 17 91023-EFRA SKIN LESIONS, 2 TO 4 11/13/19 17 86320-CRCO SKIN LESIONS, 2 TO 4 03/18/20 17 21106-CMTQ SKIN LESIONS, 2 TO 4 01/08/20 17 59453-PXRH SKIN LESIONS, 2 TO 4 08/14/19 19 51756-KWQH SKIN LESIONS, 2 TO 4 06/05/20 18 58606-BIDB SKIN LESIONS, 2 TO 4 10/24/19 19 20610-FAGU SKIN LESIONS, 2 TO 4 01/02/20 19 64822-DAJR SKIN LESIONS, 2 TO 4 05/18/20 19 84558-MFEL SKIN LESIONS, 2 TO 4 03/09/20 19 14374-FSUJ SKIN LESIONS, 2 TO 4 11/25/19 21 72759-PXEO SKIN LESIONS, 2 TO 4 02/03/20 21 T9015-KLVVRSOB DYSTROPHIC NAILS ANY # K8451-QXUUSMPD DYSTROPHIC NAILS ANY # P9365-ETRAKKAI DYSTROPHIC NAILS ANY # A9693-IRYCAIZS DYSTROPHIC NAILS ANY # X1709-KNNDUNBL DYSTROPHIC NAILS ANY # Q5707-ODTFGNHU DYSTROPHIC NAILS ANY # E4914-MVPZKIXG DYSTROPHIC NAILS ANY # E2503-XCXIKUIP DYSTROPHIC NAILS ANY # D9777-MCMOPGEU DYSTROPHIC NAILS ANY # P2888-UMXFZHDY DYSTROPHIC NAILS ANY # F2870-FKBENMTW DYSTROPHIC NAILS ANY # J7044-MHKBYPBY DYSTROPHIC NAILS ANY # U5830-RROWOSOZ DYSTROPHIC NAILS ANY # Z9836-XBCZTCNH DYSTROPHIC NAILS ANY # O0798-ISBKBFQR DYSTROPHIC NAILS ANY # N4924-XRHCDAQV DYSTROPHIC NAILS ANY # Q7530-WOXVDMRG DYSTROPHIC NAILS ANY # P4933-FHWOOZZF DYSTROPHIC NAILS ANY # F0899-ITTOGELE DYSTROPHIC NAILS ANY # D3550-XMIWILRE DYSTROPHIC NAILS ANY # I6465-YIGCQNZU DYSTROPHIC NAILS ANY # W2349-RNASEZME DYSTROPHIC NAILS ANY # H7771-WIYOGJWV DYSTROPHIC NAILS ANY # K7592-DFCZTHIG DYSTROPHIC NAILS ANY # Next Appt Details Provider Name:June Acosta Ashish , 11/19/2024 01:30:00 PM, [address] [place] [address], [phone], Insurance Providers Payer Name Payer Address Payer Phone Subscriber Number Group Number Insured Name Patient Relationship to Insured Coverage Start Date Coverage End Date [employer] [address] [place] [address] [phone] [id number] Emily Watters Self - patient is the insured Medical (General) History Medical History History ICD Code transfusions chicken pox hypertension diabetes mellitus Cholesterol Surgical History Surgery Date(Month/Year) hysterectomy 1996 Hospitalization History Reason Date(Month/Year) [place] cyst removal on chest [place] [facility] [place]17[place]16
== END 2024-11-12 09:52 | disposition home or self-care (01) ==
LOC: HO.HKA 09:31
PROVIDERS: PCP Internal Medicine; Visit Provider Internal Medicine Hypertension Specialist
DX: E11.22 Type 2 diabetes mellitus with diabetic chronic kidney disease (principal); N18.30 Chronic kidney disease, stage 3 unspecified; I10 Essential (primary) hypertension; R80.9 Proteinuria, unspecified
CPT/HCPCS: 99214

== ENCOUNTER → 2024-11-12 09:30 | Outpatient (BNVA) | payer MEDICARE, SELFPAY | PROVIDERS: PCP Internal Medicine; Visit Provider Internal Medicine Hypertension Specialist | DX: E11.22 Type 2 diabetes mellitus with diabetic chronic kidney disease (principal); I42.9 Cardiomyopathy, unspecified; N18.30 Chronic kidney disease, stage 3 unspecified; R80.9 Proteinuria, unspecified | CPT/HCPCS: 99212 ==

== ENCOUNTER 2025-01-21 06:05 | Outpatient (REF) | payer MEDICARE, SELFPAY ==
--- OUTSIDE RECORDS SUMMARY | 2025-01-21 06:07 | XMS_ITS | Patient Health Record ---
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 Name Role Phone Natanael CLEMENT, Candice Esquivel Primary Care Provider Un available Black, June Unavailable [phone] Allergies No Known Allergies Results Component Value Reference Range Notes HEMOGLOBIN A1C (GLYCOHEMOGLO BIN) Reviewed date:11/19/2024 01:23:52 PM Interpretation: Performing Lab: Notes/Report: HEMOGLOBIN A1C % (HH) 6.5 HEMOGLOBIN A1C (GLYCOHEMOGLO BIN) Reviewed date:04/30/2024 02:50:50 PM Interpretation: Performing Lab: Notes/Report: TOTAL HEMOGLOBIN (HGBA1C) 7.0 HEMOGLOBIN A1C (GLYCOHEMOGLO BIN) Reviewed date:08/17/2024 03:12:46 PM Interpretation: Performing Lab: Notes/Report: HEMOGLOBIN A1C % (HH) 7.0 Reason For Referral No Information Medications Medication SIG (Take, Route, Frequency, Duration) Notes Start Date End Date Status vitamin Active amLODIPine Besylate 10 MG 1 tablet Orally Once a day Active Citracal + D Not-Hadley ing Tylenol 325 MG 1 tablet as needed Orally every 6 hrs Active Jardiance 25 MG 1 tablet Orally Once a day Active Toujeo Max SoloStar 300 UNIT/ML INJECT 40 UNITS SUBCUTANEOUS DAILY Subcutaneous; Duration: 14 Days Active Flaxseed Oil 1000 MG as directed Orally Active Cranberry 250 MG as directed Orally Active Ozempic (0.25 or 0.5 MG/DOSE) 2 MG/3ML INJECT 0.25 MG SUBCUTANEOUS EVERY WEEK Subcutaneous; Duration: 28 Days Active Atenolol 150 Once a day Active metFORMIN HCl 1000 MG 1 tablet with a me al Orally Once a day Active Multivitamin - 1 tablet Orally Once a day Active Fish Oil 1200 MG as directed Orally 2x a day Active Repaglinide 2 MG 1 tablet 15 to 30 minutes before meals Orally Once a day Not-Taking Extra Depth Orthopedic Shoes (1 Pair) with Customized Heat Molded Multidensity Innersoles (3 Pair) as directed Dx: NIDDM/Polyneuropathy (E11.42), Hammertoe Foot Deformity (M20.41,M20.42), Preulcerative Skin Lesion(s) (L85.1 08/17/2024 Active Atenolol 50 MG 3 tablet Orally Once a day Not-Taking Januvia 100 MG 1 tablet Orally Once a day; Duration: 30 day(s) Not-Taking Lisinopril-hydroCHLOROt hiazide Not-Taking Aspirin 81 MG Orally Not-Ta prabha Lisinopril 30 MG 1 tablet Orally Once a day Active Lantus 100 UNIT/ML 45 units Subcutaneous Not-Taking Trulicity 1.5 MG/0.5ML as directed Subcutaneous once weekly Not-Taking Atorvastatin Calcium 20 MG 1 tablet Orally Once a day; Duration: 30 day(s) Active zzzCompression Stockings 20-30mm Hg . . .; Duration: . N ot-Taking Norvasc 2.5 MG 1 tablet Orally Once a day Not-Taking BD Pen Needle Short U/F Not-Taking Immunizations Vaccine Route Administration Date Status Comme [...] Problem Status W/U Status Risk Notes Problem Type 2 diabetes mellitus with diabetic polyneuropathy (E11.42) Active confirmed Problem Ulcer of toe of left foot (disorder ) (21097691 [id number] ) Skin ulcer of toe of left foot, limited to breakdown of skin (L97.521) Active confirmed Response to treatment Nonapplicable Vital Signs Blood pressure diastolic 70 mm Hg 11/19/2024 Height 4ft 10in in 11/19/2024 Blood pressure systolic 135 mm Hg 11/19/2024 Weight 192 lbs 11/19/2024 BMI 40.12 kg/m2 11/19/2024 Procedures Procedure Date Ordered Date Performed Result Body Sit e F4433-CKTDDGVW DYSTROPHIC NAILS ANY # 11/19/2024 N/A 91938-HKDO SKIN LESIONS, OVER 4 11/19/2024 N/A B2757-ZIKRGNPY DYSTROPHIC NAILS ANY # 08/17/2024 N/A 93422-FSEO SKIN LESIONS, OVER 4 08/17/2024 N/A R9618-LWEJDPOR DYSTROPHIC NAILS ANY # 04/30/2024 N/A 44387-TQJG SKIN LESIONS, OVER 4 04/30/2024 N/A X3579-JXRGYRCS DYSTROPHIC NAILS ANY # 01/30/2024 N/A 63111-XODK SKIN LESIONS, OVER 4 01/30/2024 N/A Encounters Encounter Location Date Provider Diagnosis [address] [address] 01/30/2024 June Black Type 2 diabetes mellitus with diabetic polyneuropathy E11.42 [facility] [address] 04/30/2024 June Black Type 2 diabetes mellitus with diabetic polyneuropathy E11.[address] [address] 08/17/2024 June Black Type 2 diabetes mellitus with diabetic polyneuropathy E11.42 ; Other hammer toe(s) (acquired), right foot M20.41 and Other hammer toe(s) (acquired), left foot M20.[address] [address] 11/19/2024 June Black Type 2 diabetes mellitus with diabetic polyneuropathy E11.42 and Skin ulcer of toe of left foot, limited to breakdown of skin L97.521 Assessments Encounter Date Diagnosis (ICD Code) Assessment Notes Treatment Notes Treatment Clinical Notes Section Notes 01/30/2024 Type 2 diabetes mellitus with diabetic polyneuropathy (ICD-10 - E11.42) 04/30/2024 Type 2 diabetes mellitus with diabetic polyneuropathy (ICD-10 - E11.42) 08/17/2024 Type 2 diabetes mellitus with diabetic polyneuropathy (ICD-10 - E11.42) 11/19/2024 Type 2 diabetes mellitus with diabetic polyneuropathy (ICD-10 - E11.42) 11/19/2024 Skin ulcer of toe of left foot, limited to breakdown of skin (ICD-10 - L97.521) Response to treatment Nonapplicable Patient Educated with: WOUND CARE INSTRUCTIONS. pdf (WOUND CARE INSTRUCTIONS. pdf) 08/17/2024 Other hammer toe(s) (acquired), right foot (ICD-10 - M20.41) Patient Educated with: DIABETIC FOOT CARE INSTRUCTIONS. pdf (DIABETIC FOOT CARE INSTRUCTIONS. pdf) 08/17/2024 Other hammer toe(s) (acquired), left foot (ICD-10 - M20.42) 11/19/2024 Other Plan Of Treatment Pending Test Test Name Order Date X ray : Foot, left 3V 03/12/2016 86383-LXJQAYR NAIL, 6 OR MORE 01/14/2020 17373-OCGIOIF NAIL, 6 OR MORE 03/17/2020 63168-AJBHXMI NAIL, 6 OR MORE 05/19/2020 05818-ECWQAWD NAIL, 6 OR MORE 08/11/2020 23348-GLJONEK NAIL, 6 OR MORE 08/06/2019 43976-POCPASE NAIL, 6 OR MORE 11/24/2020 22637-AAYRUMM NAIL, 6 OR MORE 04/23/2011 45569-LDLGNWG NAIL, 6 OR MORE 07/02/2011 85168-GVUJGFX NAIL, 6 OR MORE 09/17/2011 68985-RWJNAMD NAIL, 6 OR MORE 11/26/2011 19302-QFSHSPL NAIL, 6 OR MORE 02/06/2012 01993-NFNLGXM NAIL, 6 OR MORE 04/23/2012 95555-ICGDOVM NAIL, 6 OR MORE 06/30/2012 90820-SEHWXSL NAIL, 6 OR MORE 2012 53282-JIABFXG NAIL, 6 OR MORE 01/12/2013 57877-SASRUAP NAIL, 6 OR MORE 10/27/2012 73544-CNLBSWW NAIL, 6 OR MORE 03/30/2013 25269-ZMOWEEC NAIL, 6 OR MORE 06/15/2013 60342-ZEHKHDW NAIL, 6 OR MORE 09/09/2013 31711-BNKXBTJ NAIL, 6 OR MORE 11/11/2013 19880-KTACJWX NAIL, 6 OR MORE 01/28/2014 18655-JXIBDEC NAIL, 6 OR MORE 04/01/2014 83519-DUUMGRZ NAIL, 6 OR MORE 06/21/2014 93377-UMJUADU NAIL, 6 OR MORE 09/08/2014 62384-JTDFHXF NAIL, 6 OR MORE 02/02/2021 53927-WJHLDJJ NAIL, 6 OR MORE 05/18/2021 73242-KFHBJTJ NAIL, 6 OR MORE 08/31/2021 45459-ZBIHCAB NAIL, 6 OR MORE 11/09/2021 05121-UMYNSLY NAIL, 6 OR MORE 02/08/2022 19113-ZGBCBRB NAIL, 6 OR MORE 08/23/2022 13461-CNOQRYH NAIL, 6 OR MORE 12/06/2022 04069-FHVUWUP NAIL, 6 OR MORE 03/21/2023 83076-QHTDZMQ NAIL, 6 OR MORE 06/27/2023 36048-VHWDCEM NAIL, 1-5 03/21/2015 53515-MDODGPZ NAIL, 1-5 05/30/2015 24800-JUGABUJ NAIL, 1-5 07/25/2015 66946-JPNRPBR NAIL, 1-5 10/05/2015 08763-FKYTZQG NAIL, 1-5 12/14/2015 83736-LTUMQFJ NAIL, -5 03/12/2016 65124-MXIFIKD NAIL, -5 01/01/2019 12716-GEVQQJH NAIL, -5 05/18/2019 44460-UNJYPET NAIL, -5 03/13/2018 07010-NQDOOCU NAIL, -5 06/05/2018 30836-NGJXLCF NAIL, -5 08/14/2018 30249-PIXARIY NAIL, -5 10/23/2018 27032-FTOZQUG NAIL, 07-2603/09/2019 63772-AZNKCJA NAIL, -05/28/2016 19221-FCGHNEA NAIL, -08/27/2016 45723-JJJYOON NAIL, -11/12/2016 66269-VDHFNIA NAIL, -01/07/2017 36386-BMNMLIT NAIL, -03/18/2017 21006-XXTXVYH NAIL, 07-2605/20/2017 85902-ZKBNIIP NAIL, 07-2608/12/2017 66311-XLPPULU NAIL, 07-2610/24/2017 87034-CYRRURG NAIL, 07-2601/02/2018 79266-Zlewcbcx Plate 10/24/2017 28069-Csvwayln Plate 05/20/2017 16123-Dqkyhhot Plate 03/18/2017 63143-Gyxolacb Plate 11/12/2016 45387-Yqndzcar Plate 08/27/2016 35352-Tjwwyjec Plate 05/28/2016 48053-Ollmhzid Plate 03/09/2019 78006-Uyfbqqzc Plate 08/14/2018 16135-Vgkzvdsb Plate 03/13/2018 72225-Nyxjrfan Plate 08/06/2019 85493-Dcjimgxg Plate 01/14/2020 93441-Qfmkelxl Plate 11/24/2020 47753-Qagsimlw Plate 08/11/2020 05801-Gisdbqqu Plate 03/12/2016 23072-Xthsvslr Plate 12/14/2015 15851-Gjbkxonq Plate 10/05/2015 83199-Gyuobzyy Plate 03/21/2015 14763-Ckwtykrk Plate 09/08/2014 00563-Zqsntnth Plate 11/15/2014 92599-Ullwmnwu Plate 01/17/2015 71256-Jbgudlmg Plate 06/21/2014 23358-Usbzqfap Plate 04/01/2014 10489-Kkfyrxxq Plate 01/28/2014 53443-Olojcgoq Plate 11/11/2013 77985-Tryqpece Plate 09/09/2013 21888-Rgmddmrc Plate 06/15/2013 78512-Sefdtpxh Plate 10/27/2012 24713-Dmahclzw Plate 03/30/2013 11086-Gymnpjjx Plate 01/12/2013 90881-Ovjqpgea Plate 2012 70327-Vwylhjof Plate 06/30/2012 26626-Cqurbncj Plate 02/06/2012 59783-Dnvbmvuv Plate 11/26/2011 57533-Mcabyqdo Plate 03/21/2023 73624-Ipvwdern Plate 05/10/2022 99947-Qpjotcxy Plate 11/09/2021 81819-Hugknxwo Plate 02/02/2021 50182-Wexcwsrj Plate 05/18/2021 04928-Mvpstlhv Plate 08/31/2021 43670-Uzrhorip Plate Each Additional 94340-Ncsxbvtg Plate Each Additional 84259-Jgkmaban Plate Each Additional 01/2012 89295-Gnwufaxa Plate Each Additional 08808-Wqgtllxc Plate Each Additional 04/2012 11681-Wqmoupit Plate Each Additional 05/2013 90875-Cmtdogru Plate Each Additional 60782-Cmipayas Plate Each Additional 03/2013 94792-Kccdxkyw Plate Each Additional 02/2013 65144-Wvrwckab Plate Each Additional 58811-Lioadtva Plate Each Additional 94224-Kwqwbshk Plate Each Additional 04/2014 17158-Kwyyfupl Plate Each Additional 07444-Pahigzaw Plate Each Additional 13562-Qarbnvey Plate Each Additional 31706-Bhlzarpm Plate Each Additional 12/2020 75662-Yoxfokkk Plate Each Additional 15275-Ytkiqqoc Plate Each Additional 61909-Zaulvjbt Plate Each Additional 23882-Marifuic Plate Each Additional 26009-Utlqqwdt Plate Each Additional 11/2017 77456 I&D ABSCESS- SIMPLE,SINGLE 015 00035 I&D ABSCESS- SIMPLE,SINGLE 015 56037 I&D ABSCESS- SIMPLE,SINGLE 014 48075 I&D ABSCESS- SIMPLE,SINGLE 015 29456 I&D ABSCESS- SIMPLE,SINGLE 013 78509 I&D ABSCESS- SIMPLE,SINGLE 013 44361 I&D ABSCESS- SIMPLE,SINGLE 013 42968 I&D ABSCESS- SIMPLE,SINGLE 013 22824 I&D ABSCESS- SIMPLE,SINGLE 012 03631 I&D ABSCESS- SIMPLE,SINGLE 012 85125 I&D ABSCESS- SIMPLE,SINGLE 011 74727- I&D ABSCESS-COMPLICATED,MULTI 07/2013 61493-OGDO SKIN LESIONS, OVER 4 03/21/20 23 79330-QLKC SKIN LESIONS, OVER 4 10/07/19 24 24223-GEVW SKIN LESIONS, OVER 4 06/27/20 84078-HFRG SKIN LESIONS, OVER 4 01/30/20 24 60710-FDQK SKIN LESIONS, OVER 4 04/30/20 33831-PKXK SKIN LESIONS, OVER 4 08/17/19 25 11781-DIBZ SKIN LESIONS, OVER 4 11/20/19 13560-RMIH SKIN LESIONS, OVER 4 05/10/20 64277-CAEY SKIN LESIONS, OVER 4 08/23/19 11797-TBAJ SKIN LESIONS, OVER 4 12/07/19 09208-QXLU SKIN LESIONS, 2 TO 4 02/09/20 95390-VSSQ SKIN LESIONS, 2 TO 4 05/18/20 21 65718-TZNL SKIN LESIONS, 2 TO 4 11/10/19 22 78095-PJSA SKIN LESIONS, 2 TO 4 08/31/19 22 26064-HJKB SKIN LESIONS, 2 TO 4 10/05/19 16 14575-BTYP SKIN LESIONS, 2 TO 4 12/14/19 16 63578-WGHX SKIN LESIONS, 2 TO 4 03/12/20 16 03949-CCPE SKIN LESIONS, 2 TO 4 10/25/19 18 89533-GGQR SKIN LESIONS, 2 TO 4 01/03/20 18 31116-HKIQ SKIN LESIONS, 2 TO 4 03/13/20 18 42959-PVFN SKIN LESIONS, 2 TO 4 05/20/20 17 23701-QETQ SKIN LESIONS, 2 TO 4 08/12/19 18 18671-PEQT SKIN LESIONS, 2 TO 4 05/28/20 16 87067-KOJP SKIN LESIONS, 2 TO 4 08/27/19 17 13992-SYOV SKIN LESIONS, 2 TO 4 11/13/19 17 61455-HBQD SKIN LESIONS, 2 TO 4 03/18/20 17 32076-TUGU SKIN LESIONS, 2 TO 4 01/08/20 17 25288-SYVC SKIN LESIONS, 2 TO 4 08/14/19 19 28482-FUPS SKIN LESIONS, 2 TO 4 06/05/20 18 14720-BDRD SKIN LESIONS, 2 TO 4 10/24/19 47006-KXWH SKIN LESIONS, 2 TO 4 01/02/20 07095-TUZY SKIN LESIONS, 2 TO 4 05/18/20 19 25686-VPZP SKIN LESIONS, 2 TO 4 03/09/20 19 80904-WWRL SKIN LESIONS, 2 TO 4 11/25/19 21 87727-ZQDI SKIN LESIONS, 2 TO 4 02/03/20 21 X8766-ESZTDLYH DYSTROPHIC NAILS ANY # I5862-OYMYJHAZ DYSTROPHIC NAILS ANY # W7862-CQCDKLQQ DYSTROPHIC NAILS ANY # E0287-RWOUYMMW DYSTROPHIC NAILS ANY # A6203-JDIHFQOI DYSTROPHIC NAILS ANY # K1296-WZFVNFKS DYSTROPHIC NAILS ANY # W9684-MSHNLIWK DYSTROPHIC NAILS ANY # A7136-LIVXZDRE DYSTROPHIC NAILS ANY # X4631-PUXAOISS DYSTROPHIC NAILS ANY # Y3442-TNYQSUZZ DYSTROPHIC NAILS ANY # P2105-GVJUMFQK DYSTROPHIC NAILS ANY # E4196-XGCIOHVM DYSTROPHIC NAILS ANY # X2416-NQSKYZUH DYSTROPHIC NAILS ANY # N8631-DXRRDHKV DYSTROPHIC NAILS ANY # C0390-RIKUDLRN DYSTROPHIC NAILS ANY # V3550-XBEJCMWM DYSTROPHIC NAILS ANY # E3458-GFKPABKN DYSTROPHIC NAILS ANY # W5236-XIPLTDTX DYSTROPHIC NAILS ANY # Y9780-BBSLGGJB DYSTROPHIC NAILS ANY # A0633-EQDWWLDM DYSTROPHIC NAILS ANY # B1853-BGDASUAF DYSTROPHIC NAILS ANY # A6455-ZWILVFRA DYSTROPHIC NAILS ANY # E4336-FMRVUMLY DYSTROPHIC NAILS ANY # B6735-JMJDCADN DYSTROPHIC NAILS ANY # N4455-TBQSOCUL DYSTROPHIC NAILS ANY # Next Appt Details Provider Name:June Hinojosa , 03/04/2025 01:30:00 PM, [address] [place], [address], Insurance Providers Payer Name Payer Address Payer Phone Subscriber Number Group Number Insured Name Patient Relationship to Insured Coverage Start Date Coverage End Date [facility] 65 Medicare Preferred [address] [place] [address] [id number] Emily Watters Self - patient is the insured Medical (General) History Medical History History ICD Code transfusions chicken pox hypertension diabetes mellitus Cholesterol Other hammer toe(s) (acquired), right fo ot M20.41 Other hammer toe(s) (acquired), left anabel t M20.42 Surgical History Surgery Date(Month/Year) hysterectomy 1996 Hospitalization History Reason Date(Month/Year) [place] [facility] [place]
--- OUTSIDE RECORDS SUMMARY | 2025-01-21 06:07 | XMS_ITS | Clinical Summary ---
Author Organization [facility] Address [address] [place] [address] Phone Care Team Providers Care Mill Manager Name Role Phone Elsy Santoyo MD Primary Care Provider [phone] Allergies No known active allergies Medications Multiple Vitamin (MULTIVITAMIN ADULT PO) Take 1 capsule by mouth 1 (one) time each day Active [place]-3 Fatty Acids (Fish Oil Concentrate) 1000 MG [...] EDT) Hemoglobin A1C 8.2 % FRANCINE Comment: Hemoglobin A1C Reference Range Adults: 4.8 - 6.0 % Non diabetic: < 6.0 % Goal: < 7.0 % Additional Action Suggested: > 8.0 % Note: Hemoglobin A1c results are invalid for patients with abnormal amounts of HbF. Blood transfusions may impact the HbA1c concentration in the patient sample. Estimated Average Glucose 189 MG/DL FRANCINE Comment: eAG = Estimated average glucose which is %A1C expressed as average glucose, using the formula of the W6U-Wweqhde Average Glucose study (ADAG), Diabetes Care, Vol.31,#8, Feb. 2007 03/17/2020 6:20 AM EDT Elsy Santoyo MD LAB BLOOD ORDERABLES Final Result [place]EL[place] from Last 3 Months or Most Recently Relevant to Health Maintenance Insurance [id number]) [id number]) Care Teams Mill Manager Relationship Specialty Start Date End Date Elsy Santoyo MD [address] [place] [id number] PCP - General Internal Medicine 04/14/21
[2025-01-21 10:30] LABS: Hemoglobin A1C 169.9058 umol/L; Total Hemoglobin (HGBA1C) 3489.2769 umol/L
[2025-01-21 10:34] LABS: Alanine Aminotransferase 26 U/L (0-31); Anion Gap 12 (12-20); Aspartate Amino Transferase 29 U/L (5-31); Blood Urea Nitrogen 18 mg/dL (9-16); Calcium 9.5 mg/dL (8.4-10.2); Carbon Dioxide 26 mmol/L (22-29); Chloride 103 mmol/L (96-108); Cholesterol 150 mg/dL (<200); Estimated Glomerular Filt Rate 53; HDL Cholesterol 50 mg/dL (>40); Potassium 3.7 mmol/L (3.3-5.1); Sodium 137 mmol/L (135-145); Triglycerides 164 mg/dL (<150)
== END 2025-01-21 06:06 | disposition home or self-care (01) ==
LOC: HO.HMGCLDS 06:05
PROVIDERS: PCP Internal Medicine; Visit Provider Internal Medicine
DX: E11.22 Type 2 diabetes mellitus with diabetic chronic kidney disease (principal); I12.9 Hypertensive chronic kidney disease with stage 1 through stage 4 chronic kidney disease, or unspecified chronic kidney disease; N18.30 Chronic kidney disease, stage 3 unspecified; E78.2 Mixed hyperlipidemia; E66.01 Morbid (severe) obesity due to excess calories; Z68.43 Body mass index [BMI] 50.0-59.9, adult
CPT/HCPCS: 36415; 80048; 80061; 83036; 84443; 84450; 84460

== ENCOUNTER 2025-01-28 13:15 | Outpatient (AMB) | payer MEDICARE, SELFPAY ==
--- OUTSIDE RECORDS SUMMARY | 2025-01-28 13:19 | XMS_ITS | Patient Health Record ---
[facility] Address [address] [address] Care Team Providers Care Painter Sign Maintenance Name Role Phone Natanael CLEMENT, Candice Esquivel Primary Care Provider Un available Black, June Unavailable [phone] Allergies No Known Allergies Results Component Value Reference Range Notes HEMOGLOBIN A1C (GLYCOHEMOGLO BIN) Reviewed date:08/17/2024 03:12:46 PM Interpretation: Performing Lab: Notes/Report: HEMOGLOBIN A1C % (HH) 7.0 HEMOGLOBIN A1C (GLYCOHEMOGLO BIN) Reviewed date:04/30/2024 02:50:50 PM Interpretation: Performing Lab: Notes/Report: TOTAL HEMOGLOBIN (HGBA1C) 7.0 HEMOGLOBIN A1C (GLYCOHEMOGLO BIN) Reviewed date:11/19/2024 01:23:52 PM Interpretation: Performing Lab: Notes/Report: HEMOGLOBIN A1C % (HH) 6.5 Reason For Referral No Information Medications Medication [...] Polyneuropathy due to type 2 diabetes mellitus (340976405) Type 2 diabetes mellitus with diabetic polyneuropathy (E11.42) Active confirmed Problem Ulcer of toe of left foot (disorder) (141164135446900 02) Skin ulcer of toe of left foot, limited to breakdown of skin (L97.521) Active confirmed Response to treatment Nonapplicable Vital Signs Blood pressure diastolic 70 mm Hg 11/19/2024 Height 4ft 10in in 11/19/2024 Blood pressure systolic 135 mm Hg 11/19/2024 Weight 192 lbs 11/19/2024 BMI 40.12 kg/m2 11/19/2024 Procedures Procedure Date Ordered Date Performed Result Body Sit e 31857-TRZF SKIN LESIONS, OVER 4 01/30/2024 N/A K4660-TWRGRYUX DYSTROPHIC NAILS ANY # 01/30/2024 N/A 89497-ERQL SKIN LESIONS, OVER 4 04/30/2024 N/A Z4228-SNZWFAEE DYSTROPHIC NAILS ANY # 04/30/2024 N/A 16188-LUNA SKIN LESIONS, OVER 4 08/17/2024 N/A Y7359-UZYGLBET DYSTROPHIC NAILS ANY # 08/17/2024 N/A 87338-NARG SKIN LESIONS, OVER 4 11/19/2024 N/A H2872-HWBMTRBJ DYSTROPHIC NAILS ANY # 11/19/2024 N/A Encounters Encounter Location Date Provider Diagnosis [address] [address] 01/30/2024 June Black Type 2 diabetes mellitus with diabetic polyneuropathy E11.[address] [address] 04/30/2024 June Black Type 2 diabetes mellitus with diabetic polyneuropathy E11.[address] [address] 08/17/2024 June Black Type 2 diabetes mellitus with diabetic polyneuropathy E11.42 ; Other hammer toe(s) (acquired), right foot M20.41 and Other hammer toe(s) (acquired), left foot M20.[address] [place] [address] 11/19/2024 June Black Type 2 diabetes mellitus [...] X ray : Foot, left 3V 03/12/2016 87604-ANORVNH NAIL, 6 OR MORE 01/14/2020 93810-BXJSLIO NAIL, 6 OR MORE 03/17/2020 57530-JXAUMUY NAIL, 6 OR MORE 05/19/2020 39113-SPUJAAS NAIL, 6 OR MORE 08/11/2020 04672-VWQIIBO NAIL, 6 OR MORE 08/06/2019 16700-CDVHABK NAIL, 6 OR MORE 11/24/2020 00616-BBIESJJ NAIL, 6 OR MORE 04/23/2011 45831-ETRIVJX NAIL, 6 OR MORE 07/02/2011 88105-CKFJYES NAIL, 6 OR MORE 09/17/2011 03841-UILTXUM NAIL, 6 OR MORE 11/26/2011 13939-YFDJJWZ NAIL, 6 OR MORE 02/06/2012 64918-UAXMMLN NAIL, 6 OR MORE 04/23/2012 55998-FFHEOOP NAIL, 6 OR MORE 06/30/2012 15603-EIUZYOW NAIL, 6 OR MORE 2012 83537-BHYPFBY NAIL, 6 OR MORE 01/12/2013 16365-HREEDAU NAIL, 6 OR MORE 10/27/2012 65216-DXQATAR NAIL, 6 OR MORE 03/30/2013 58348-TAZCHMO NAIL, 6 OR MORE 06/15/2013 59962-ZEYSMXV NAIL, 6 OR MORE 09/09/2013 69560-IFQAHWS NAIL, 6 OR MORE 11/11/2013 52868-GXZBBUH NAIL, 6 OR MORE 01/28/2014 05317-MBKWNVJ NAIL, 6 OR MORE 04/01/2014 08489-YCNBPXA NAIL, 6 OR MORE 06/21/2014 35083-HVWCXFZ NAIL, 6 OR MORE 09/08/2014 60900-CSJGVQD NAIL, 6 OR MORE 02/02/2021 73900-IEWOLLC NAIL, 6 OR MORE 05/18/2021 60843-ERWPPQU NAIL, 6 OR MORE 08/31/2021 68795-ESHGAZS NAIL, 6 OR MORE 11/09/2021 05409-RCJHBPZ NAIL, 6 OR MORE 02/08/2022 16155-ROHKWDH NAIL, 6 OR MORE 08/23/2022 48811-LKSZVZX NAIL, 6 OR MORE 12/06/2022 51616-NLQBGKO NAIL, 6 OR MORE 03/21/2023 47345-BSMYKUT NAIL, 6 OR MORE 06/27/2023 14937-KNXDQEB NAIL, 1-5 03/21/2015 48369-YSVFXPR NAIL, 1-5 05/30/2015 37064-WMYSWHT NAIL, 1-5 07/25/2015 63796-JMBEVYR NAIL, 1-5 10/05/2015 06754-TLPJDCE NAIL, 1-5 12/14/2015 48023-KTYENQH NAIL, 1-5 03/12/2016 59136-SSYPGTD NAIL, -5 01/01/2019 32127-XNSLEBG NAIL, -5 05/18/2019 14571-GVZYWYL NAIL, 1-5 03/13/2018 14108-GOMBFJO NAIL, 1-5 06/05/2018 97526-RGTCGPT NAIL, -5 08/14/2018 41374-IDBDIZX NAIL, 07-2610/23/2018 52432-HVZZOLT NAIL, 07-2603/09/2019 24311-MOCBXEJ NAIL, 07-2605/28/2016 63218-CJHBHYG NAIL, 07-2608/27/2016 35573-IVQLSYJ NAIL, 07-2611/12/2016 68760-AIGATFX NAIL, 07-2601/07/2017 11217-MAUZAPW NAIL, 07-2603/18/2017 50412-ISFPSXS NAIL, 07-2605/20/2017 15183-DPTDHWT NAIL, 07-2608/12/2017 30196-KWKQFSW NAIL, 07-2610/24/2017 67379-DSYAVXI NAIL, 07-2601/02/2018 09748-Xricacxh Plate 10/24/2017 05469-Rbuqpfti Plate 05/20/2017 04501-Dqpetmni Plate 03/18/2017 19846-Lupxylax Plate 11/12/2016 15283-Qqbytynu Plate 08/27/2016 22258-Qoylbdax Plate 05/28/2016 45009-Sbqtxkdz Plate 03/09/2019 58520-Hmhnqkrw Plate 08/14/2018 00247-Antfslia Plate 03/13/2018 15609-Myuelewx Plate 08/06/2019 61919-Txlscete Plate 01/14/2020 38795-Honpjhos Plate 11/24/2020 05646-Bqtjjyjk Plate 08/11/2020 31053-Nocdzydk Plate 03/12/2016 00137-Eqjdpurm Plate 12/14/2015 77926-Wpzykrns Plate 10/05/2015 76968-Ioovceyf Plate 03/21/2015 38324-Dcpdpdmh Plate 09/08/2014 59759-Sillsnzh Plate 11/15/2014 79244-Ejabkryz Plate 01/17/2015 03617-Svnizblu Plate 06/21/2014 08242-Ufziojiu Plate 04/01/2014 77265-Vaglrptr Plate 01/28/2014 76844-Dmfyjwjp Plate 11/11/2013 86789-Ceqxcscu Plate 09/09/2013 36727-Gucscxnw Plate 06/15/2013 00680-Laejzcrk Plate 10/27/2012 24807-Xarhuboi Plate 03/30/2013 51694-Xzxwhbbw Plate 01/12/2013 57531-Khaytzps Plate 2012 15668-Jidchfyw Plate 06/30/2012 94710-Fbfzboil Plate 02/06/2012 32089-Weumddiw Plate 11/26/2011 81135-Dssmmycz Plate 03/21/2023 02037-Suaytqgt Plate 05/10/2022 63682-Dmecsipa Plate 11/09/2021 74370-Pmmfndqf Plate 02/02/2021 33357-Hzzetnrt Plate 05/18/2021 71014-Rptfyqis Plate 08/31/2021 80991-Nrebabon Plate Each Additional 45014-Uhquiuwp Plate Each Additional 17776-Qihitliy Plate Each Additional 01/2012 79090-Kdeynquo Plate Each Additional 23285-Mgufqqli Plate Each Additional 04/2012 34959-Vqpdmwbo Plate Each Additional 05/2013 40599-Shzrqtgd Plate Each Additional 62519-Yuhpdtnl Plate Each Additional 03/2013 66720-Bjietnjm Plate Each Additional 02/2013 45399-Ukgsomqj Plate Each Additional 31356-Zdygeucv Plate Each Additional 73111-Iceedhct Plate Each Additional 04/2014 77515-Gjcwaiub Plate Each Additional 09017-Qvadyyiq Plate Each Additional 93711-Opsskicu Plate Each Additional 84538-Qnhbuffd Plate Each Additional 12/2020 51421-Zkvcpata Plate Each Additional 71615-Qhcmjvco Plate Each Additional 33221-Bvxusaqx Plate Each Additional 56908-Vctgimps Plate Each Additional 05114-Marshqka Plate Each Additional 11/2017 37403 I&D ABSCESS- SIMPLE,SINGLE 015 82730 I&D ABSCESS- SIMPLE,SINGLE 015 45132 I&D ABSCESS- SIMPLE,SINGLE 014 88582 I&D ABSCESS- SIMPLE,SINGLE 015 40928 I&D ABSCESS- SIMPLE,SINGLE 013 33804 I&D ABSCESS- SIMPLE,SINGLE 013 34887 I&D ABSCESS- SIMPLE,SINGLE 013 74448 I&D ABSCESS- SIMPLE,SINGLE 013 60801 I&D ABSCESS- SIMPLE,SINGLE 012 02280 I&D ABSCESS- SIMPLE,SINGLE 012 19953 I&D ABSCESS- SIMPLE,SINGLE 011 94328- I&D ABSCESS-COMPLICATED,MULTI 07/2013 81856-RHEA SKIN LESIONS, OVER 4 03/21/20 23 66374-TCJH SKIN LESIONS, OVER 4 10/07/19 24 60773-ORKD SKIN LESIONS, OVER 4 06/27/20 23 94684-CNJG SKIN LESIONS, OVER 4 01/30/20 24 78267-XEYT SKIN LESIONS, OVER 4 04/30/20 24 78638-PMVP SKIN LESIONS, OVER 4 08/17/19 25 78421-WZSZ SKIN LESIONS, OVER 4 11/20/19 25 01361-UAPN SKIN LESIONS, OVER 4 05/10/20 27724-QOWL SKIN LESIONS, OVER 4 08/23/19 23 77007-KEYN SKIN LESIONS, OVER 4 12/07/19 23 20914-NWYW SKIN LESIONS, 2 TO 4 02/09/20 22 64239-XXZO SKIN LESIONS, 2 TO 4 05/18/20 21 08670-KENC SKIN LESIONS, 2 TO 4 11/10/19 22 19314-LMCS SKIN LESIONS, 2 TO 4 08/31/19 22 22924-HXNI SKIN LESIONS, 2 TO 4 10/05/19 16 49933-QLVF SKIN LESIONS, 2 TO 4 12/14/19 16 52068-WIBR SKIN LESIONS, 2 TO 4 03/12/20 16 50973-KKWZ SKIN LESIONS, 2 TO 4 10/25/19 18 78239-VVEP SKIN LESIONS, 2 TO 4 01/03/20 18 64961-EZVR SKIN LESIONS, 2 TO 4 03/13/20 18 48248-AVLW SKIN LESIONS, 2 TO 4 05/20/20 17 52340-BZWJ SKIN LESIONS, 2 TO 4 08/12/19 18 34074-VSEO SKIN LESIONS, 2 TO 4 05/28/20 16 00302-QMZZ SKIN LESIONS, 2 TO 4 08/27/19 17 74347-FLNJ SKIN LESIONS, 2 TO 4 11/13/19 17 97227-SBUE SKIN LESIONS, 2 TO 4 03/18/20 17 33439-NMUT SKIN LESIONS, 2 TO 4 01/08/20 17 85439-FYRM SKIN LESIONS, 2 TO 4 08/14/19 19 38639-DIWL SKIN LESIONS, 2 TO 4 06/05/20 18 17048-PJRT SKIN LESIONS, 2 TO 4 10/24/19 19 77172-GVJC SKIN LESIONS, 2 TO 4 01/02/20 31816-AEKZ SKIN LESIONS, 2 TO 4 05/18/20 19 23178-YGCV SKIN LESIONS, 2 TO 4 03/09/20 19 81887-XEDS SKIN LESIONS, 2 TO 4 11/25/19 21 22425-YILI SKIN LESIONS, 2 TO 4 02/03/20 21 J5289-RAXKCRWU DYSTROPHIC NAILS ANY # I2844-IOYRZDPG DYSTROPHIC NAILS ANY # H4529-GUKGIAND DYSTROPHIC NAILS ANY # Q2397-BCTWOGJY DYSTROPHIC NAILS ANY # Z3746-HIQYYPWF DYSTROPHIC NAILS ANY # K4979-ZLSHOMFF DYSTROPHIC NAILS ANY # W5718-BFSQYIWH DYSTROPHIC NAILS ANY # M2540-YUKRCQPG DYSTROPHIC NAILS ANY # F7632-NEUHPSFY DYSTROPHIC NAILS ANY # L8365-ECTOHXKA DYSTROPHIC NAILS ANY # C8588-RYNBGOXC DYSTROPHIC NAILS ANY # V8800-QGGXVYNV DYSTROPHIC NAILS ANY # U4755-HBVRMLFR DYSTROPHIC NAILS ANY # Q5896-DZFBBUNX DYSTROPHIC NAILS ANY # V9409-IRWITRGF DYSTROPHIC NAILS ANY # Z5774-YLQGLCQN DYSTROPHIC NAILS ANY # L7314-VHYHTCUS DYSTROPHIC NAILS ANY # K8902-HOUDLFZB DYSTROPHIC NAILS ANY # W0786-LWHMGZPP DYSTROPHIC NAILS ANY # L2397-MVGVZNKH DYSTROPHIC NAILS ANY # S5934-DKIWMXYC DYSTROPHIC NAILS ANY # E9115-UYSFTZTX DYSTROPHIC NAILS ANY # K5444-AUZDUHBF DYSTROPHIC NAILS ANY # H9806-QRHUQCWW DYSTROPHIC NAILS ANY # B6657-FGTDYSIK DYSTROPHIC NAILS ANY # Next Appt Details Provider Name:June Hinojosa , 03/04/2025 01:30:00 PM, [address] [place], [address], Insurance Providers Payer Name Payer Address Payer Phone Subscriber Number Group Number Insured Name Patient Relationship to Insured Coverage Start Date Coverage End Date [facility] 65 Medicare Preferred [address] [place] [address] [id number] Emily Watters Self - patient is the insured Medical (General) History Medical History History ICD Code transfusions chicken pox hypertension diabetes mellitus Cholesterol Other hammer toe(s) (acquired), right fo ot M20.41 Other hammer toe(s) (acquired), left anabel t M20.42 Surgical History Surgery Date(Month/Year) hysterectomy 1996 Hospitalization History Reason Date(Month/Year) [place] [facility] [place]
--- OUTSIDE RECORDS SUMMARY | 2025-01-28 13:19 | XMS_ITS | Clinical Summary ---
Author Organization [facility] Address [address] [place] [address] Phone Care Team Providers Care Machine Packager Name Role Phone Elsy Santoyo MD Primary Care Provider [phone] Allergies No known active allergies Medications Multiple Vitamin (MULTIVITAMIN ADULT PO) Take 1 capsule by mouth 1 (one) time each day Active [place]-3 Fatty Acids (Fish Oil Concentrate) 1000 MG [...] Visual Foot Exam 08/21/2020 Influenza Vaccine (#1) 2025 Hepatitis B Vaccine Aged Out No [...] average glucose, using the formula of the Q8A-Snmokuu Average Glucose study (ADAG), Diabetes Care, Vol.31,#8, Feb. 2007 03/17/2020 6:20 AM EDT Elsy Santoyo MD LAB BLOOD ORDERABLES Final Result CELIKISHORE from Last 3 Months or Most Recently Relevant to Health Maintenance Insurance [facility] Medd[employer]([id number]) [facility] Med[employer]([id number]) Care Teams Machine Packager Relationship Specialty Start Date End Date Elsy Santoyo MD [address] [place] [id number] PCP - General Internal Medicine 04/14/21
[2025-01-28 13:39] VITALS: BP 126/60; PULSE 78; RESP 16; TEMP 36.7; O2SAT 97; BMI 52.6
--- NOTE | 2025-01-28 13:39 | A.OFFPC_ITS ---
Vital Signs 01/28/25 13:39 Height 4 ft 2 in Weight 187 lb BMI 52.6 BP 126/60 Blood Pressure Location Lt radial Position Sitting Respiration 16 Pulse 78 Pulse Source Pulse Oximeter Temp 98.0 F Temp Source Oral Pulse Oximetry (%) 97 Oxygen Delivery Method Room Air Intake Visit Reasons: 4 months f/up Intake Note: Pt is here today for her 4mo. f/u Allergies No Known Allergies (No Known Allergies*) Allergy (Verified 01/28/25 13:49) Medication List - Last Reconciled 01/28/25 by Candice Santoyo MD acetaminophen ER (Tylenol Arthritis Pain) 650 mg PO Q12H amlodipine 10 mg PO DAILY atenolol 150 mg (1.5 x 100 mg) PO DAILY 90 days atorvastatin 20 mg PO DAILY blood sugar diagnostic (LookStat Verio test strips) Three times a day blood-glucose meter (Epidemic Sounduch Verio Meter) As directed cranberry extract 250 mg PO DAILY empagliflozin (Jardiance) 25 mg PO DAILY flaxseed oil 1,000 mg PO BID insulin glargine U-300 conc (Toujeo Max U-300 SoloStar) 40 units (0.1333 mL) subcut DAILY 3 months lancets (Saylent TechnologiesTouch Delica Plus Lancet) CHECK BLOOD SUGAR THREE TIMES DAILY BEFORE MEALS lisinopril 30 mg PO DAILY metformin 1,000 mg PO BIDWMEAL 3 months multivitamin with minerals 1 cap PO DAILY omega 9-mci-zxb-fish oil 1,200 (144-216) mg (Fish Oil) caps PO Ozempic (semaglutide) 0.25 mg (0.368 mL) subcut QWEEK 30 days NS pen needle, diabetic Use daily as directed subcut daily; Tobacco use date assessed: 01/28/25 Fall risk assessment: No Falls in past year Last assessed Fall Risk: 01/28/25 Dental Screening Dental Screen Date: 01/28/25 Did you have a dental visit in the last 12 months?: No Did you have a dental problem in the last 6 months where you did not have access to dental care?: No Was dental information given to patient?: Patient declined HPI 4 months f/up HPI Details 79 year-old lady with hypertension, diab etes mellitus, hyperlipidemia, here today for her follow-up. Latest fasting labs showed lipids are within normal limits, but hemoglobin A1c is at 6.6%. She is currently on Ozempic, Jardiance, to GI plus metformin as well as atorvastatin 20 mg daily. She has lost approximately 11 lb in the last 3 months, but admits to indulging in eye screening this past several days due to the hot weather. Up-to-date with her diabetes eye exam, sees Dr. Carbajal. Has nephropathy from diabetes, followed by Dr. Dominique Blood pressure stable and controlled on lisinopril 30 mg daily and amlodipine 10 mg daily as well as atenolol 150 mg once a day. Has been feeling well, denies any side effects from the Ozempic. [facility] Medical History Surgical menopause Gait instability Papanicolaou smear declined Colonoscopy refused Obesity due to excess calories Type 2 diabetes mellitus with chronic kidney disease Mixed dyslipidemia Essential hypertension DUB (dysfunctional uterine bleeding) CKD stage 3 secondary to diabetes Mammogram declined Surgical History Hx of hysterectomy S/P LOLIS-BSO Family History Father CAD (coronary artery disease) Mother Diabetes mellitus Lung cancer Sister Diabetes mellitus Social History Household Members: None Housing: House Alcohol intake: never Patient Tobacco Use Status: Former Tobacco user Years Smoked: 14 yrs e-Cigarette/Vaping Use: Never Used service: No Current occupational status: employed Cognitive needs: No Hearing needs: No Vision needs: Yes Questionnaire PHQ-9 Over the last 2 weeks, how often have you been bothered by any of the following problems? Depression Screening Interpretation: Negative Depression Screening Done: Yes Source: Developed by Drs. Ike Michelle, Gege Mary, David Borges and colleagues, with an educational shea from [employer]. Thrive Questionnaire Date Thrive assessed: 10/15/24 I am a: Patient What is your living situation today?: I have a steady place to live Within the past 12 months, did the food you bought not last and you didn't have the money to get more?: Never true Within the past 12 months, did you worry whether your food would run out before you got money to buy more?: Never true Do you have trouble paying for medicines?: No Do you have trouble getting transportation to medical appointments?: No Do you have trouble paying your heating and electricity bill?: No Do you have trouble taking care of your child, family member or friend?: No Do you have trouble with day-to-day activities such as bathing, preparing meals, shopping, managing finances, etc.?: No Are you currently unemployed and looking for a job?: No Are you interested in more education?: No Please select the resources that you would like help with: None Currently or been in a relationship where the following occur: No concerns reported THRIVE Score: 0 JOSH-7 AMB Questionnaire JOSH-7 Date JOSH - 7 assessed: 10/15/24 Source: Developed by Drs. Ike Michelle, Gege Mary, David Borges and colleagues, with an educational shea from [employer]. Review of Systems Const Denies body aches, Denies fatigue, Denies headache(s) and Denies malaise Eyes Details: Sees Dr. Carbajal yearly Denies itchy eyes ENT Reports no additional complaints, Denies vertigo, Denies dizziness and Denies headache(s) Card Denies palpitations and Denies dyspnea Resp Denies cough and Denies dyspnea GI Denies abdominal pain, Denies melena, Denies hematochezia, Denies change in bowel habits and Denies heartburn Denies hematuria, Denies urinary frequency, Denies dysuria and Reports urinary incontinence (occasional) Musc Denies muscle weakness, Denies numbness, Reports stiffness and Denies tingling Skin/Breast Denies breast pain, Denies breast mass and Denies rash Neuro Denies vertigo, Denies dizziness, Denies headache(s), Denies focal weakness, Denies numbness, Denies Sensory deficit (Neuro), Denies tingling and Denies paresthesias Psych Denies depression Endo Denies fatigue, Denies polydipsia, Reports polyuria and Denies palpitations Obi/Lymph Denies easy bruising Aller/Immun Denies urticaria, Denies itchy eyes and Denies seasonal rhinorrhea Physical exam (Primary Care) Vital Signs: Last Vital Signs Temp 98.0 F 01/28/25 13:39 Pulse 78 01/28/25 13:39 Resp 16 01/28/25 13:39 BP 126/60 01/28/25 13:39 Pulse Ox 97 01/28/25 13:39 Oxygen Delivery Method Room Air 01/28/25 13:39 BMI result Body Mass Index 52.6 BMI Assessment/Plan discussion: High BMI High, discussed plan: lifestyle, weight reduction, dietary and physical activity Tobacco/Smoking Status: Tobacco use Status Tobacco use date assessed 01/28/25 01/28/25 13:44 Patient Tobacco Use Status Former Tobacco user 01/28/25 13:44 e-Cigarette/Vaping Use Never Used 01/28/25 13:44 Depression Screening Interpretation: Negative Thrive Assessment: Date of Thrive Assessment Date Thrive assessed 10/15/24 01/28/25 13:44 Currently or been in a relationship where the following occur: No concerns reported Const General: comfortable and no acute distress Nutritional Appearance: obese morbidly obese Orientation/consciousness: patient oriented x3 HENMT Ears: external ears normal General nose exam: Normal external nose present Mouth: Normal oral and palatal mucosa present, oropharynx normal and moist mucous membranes Eyes General: appearance normal, both eyes and all related structures Neck Neck: Yes full ROM, Yes no lymphadenopathy and Yes supple Resp Effort & Inspection: normal respiratory effort and able to speak in complete sentences Auscultation: clear to auscultation bilaterally Cardio Rate: regular rate Rhythm: regular rhythm Heart sounds: S1 normal heart sound present and S2 normal heart sound present GI Inspection: Yes obesity Palpation (GI): Soft to palpation, nontender, no guarding and no masses Auscultation: normal bowel sounds Back/Spine/Pelvis Cervical Spine: cervical ROM normal Thoracic/Lumbar Spine: thoracic and lumbar spine normal to inspection Skin General skin exam: no rashes or lesions noted Neuro General: patient oriented x3, tone normal, moves all extremities, Normal light touch and pain sensation and no focal motor deficits Cognition (Neuro): normal cognition Motor exam (neuro): 5/5 motor strength present throughout Sensory Exam: No Sensory deficit (Neuro) Extrem General: Yes full ROM, Yes no joint enlargement, Yes no pedal edema, Yes no calf tenderness and Yes normal gait Psych Mental Status: mental status grossly normal Affect: normal affect Results Reviewed Results Reviewed: Laboratory Tests 01/21/25 06:16 Estimat Average Glucose 143 Hemoglobin A1c % 6.6 H rocio: Es Watters Age/Sex: 79/F : 1945 Unit#: [id number] Attend Dr: Candice Santoyo MD Re01/21/25 Status: DEP REF Location: [facility] isch: SPEC : [id number] RAMANDEEP: 01/21/25 STATUS: COMP REQ : [id number] RECD: 01/21/[address]: Candice Santoyo MD COMP: 01/21/25 ENTERED: 01/21/[address]: ORDERED: Met Prof Fast, AST, ALT, Lipid Panel, TSH Rflx Test Result Flag Reference Sodium 137 135-145 mmol/L Potassium 3.7 3.3-5.1 mmol/L CL 103 96-108 mmol/L CO2 26 22-29 mmol/L Gap 12 12-20 BUN 18 H 9-16 mg/dL Creat 1.01 0.5-1.4 mg/dL eGFR 53 Chronic Kidney Disease: Estimated GFR < 60 mL/min/1.73m2 Severe Kidney Disease: Estimated GFR < 15 mL/min/1.73m2 FBS 95 60-99 mg/dL CA 9.5 8.4-10.2 mg/dL AST (GOT) 29 5-31 U/L ALT (GPT) 26 0-31 U/L Triglyceride 164 H <150 mg/dL Desirable Triglyceride: less than 150 mg/dL Borderline High Triglyceride 150-199 mg/dL High Triglyceride: 200-499 mg/dL Very High Triglyceride: greater than or equal to 5OO mg/dL Cholesterol 150 <200 mg/dL Desirable Cholesterol: less than 200 mg/dL Borderline High Cholesterol: 200-239 mg/dL High Cholesterol: greater than 239 mg/dL LDL Calculated 68 <100 mg/dL Desirable LDL: less than 100 mg/dL Near Optimal/Above Optimal LDL: 110-129 mg/dL Borderline High LDL: 130-159 mg/dL High LDL: 160-189 mg/dL Very High LDL: greater than or equal to 190 mg/dL HDL 50 >40 mg/dL Desirable HDL: greater than 40 mg/dL Note: This HDL assay may give artificially low results in patients with liver disease. TSH 2.01 0.32-4.0 uIU/mL Coding Level of Care Code Est Pt Level 4 (49584) Diagnoses Type 2 diabetes mellitus with stage 3 chronic kidney disease, without long-term current use of insulin, unspecified whether stage 3a or 3b CKD E11.22; N18.30 Chronic kidney disease stage: stage 3 (moderate) Chronic kidney disease stage 3 subtype: unspecified whether 3a or 3b Diabetes mellitus vermin exterminator insulin use: without vermin exterminator use Mixed dyslipidemia E78.2 Assessment & Plan Assessment & Plan (1) Type 2 diabetes mellitus with chronic kidney disease: Code(s): E11.22 - Type 2 diabetes mellitus with diabetic chronic kidney disease Category: Medical Qualifiers: Chronic kidney disease stage: stage 3 (moderate) Chronic kidney disease stage 3 subtype: unspecified whether 3a or 3b Diabetes mellitus vermin exterminator insulin use: without vermin exterminator use Qualified Code(s): E11.22 - Type 2 diabetes mellitus with diabetic chronic kidney disease; N18.30 - Chronic kidney disease, stage 3 unspecified Plan: Increase Ozempic dose 2.5 mg injected subcutaneously once a week. Continue with metformin, Gracie Dillance same dose. Up-to-date with her diabetes retinopathy screening, will see her back for follow-up in May 2025 (2) Mixed dyslipidemia: Code(s): E78.2 - Mixed hyperlipidemia Category: Medical Plan: Fasting lipids are within normal limits, except for elevated triglycerides, continued on atorvastatin 20 mg daily, reinforced importance of following recommended diet and getting regular exercise Orders: Orders Hemoglobin A1c 04/21/25 E11.22 - Type 2 diabetes mellitus with diabetic chronic kidney disease, N18.30 - Chronic kidney disease, stage 3 unspecified Medications: New Ozempic (semaglutide) 0.5 mg (0.736 mL) subcut QWEEK 3 mL 5RF 30 days NS Discontinued Ozempic (semaglutide) for 4 weeks Discontinued Reason: Doctor's Order 0.25 mg (0.368 mL) subcut QWEEK 30 days 3 mL 5RF NS E11.22 - Type 2 diabetes mellitus with diabetic chronic kidney disease, N18.30 - Chronic kidney disease, stage 3 unspecified
== END 2025-01-28 14:05 | disposition home or self-care (01) ==
LOC: HO.HMCC 13:16
PROVIDERS: PCP Internal Medicine; Visit Provider Internal Medicine
DX: E11.22 Type 2 diabetes mellitus with diabetic chronic kidney disease (principal); N18.30 Chronic kidney disease, stage 3 unspecified; E78.2 Mixed hyperlipidemia

== ENCOUNTER → 2025-01-28 13:15 | Outpatient (BNVA) | payer MEDICARE, SELFPAY | PROVIDERS: PCP Internal Medicine; Visit Provider Internal Medicine | DX: E11.22 Type 2 diabetes mellitus with diabetic chronic kidney disease (principal); N18.30 Chronic kidney disease, stage 3 unspecified; E78.2 Mixed hyperlipidemia; Z79.899 Other long term (current) drug therapy; Z79.84 Long term (current) use of oral hypoglycemic drugs | CPT/HCPCS: 99212 ==

== ENCOUNTER 2025-05-07 06:09 | Outpatient (REF) | payer MEDICARE, SELFPAY ==
--- OUTSIDE RECORDS SUMMARY | 2025-05-07 06:13 | XMS_ITS | Patient Health Record ---
Author Organization [facility] Address [address] [place] [address] Care Team Providers Care Buffet Runner Name Role Phone Natanael CLEMENT, Candice Esquivel Primary Care Provider Un available Black, June Unavailable [phone] Allergies No Known Allergies Results Component Value Reference Range Notes HEMOGLOBIN A1C (GLYCOHEMOGLO BIN) Reviewed date:11/19/2024 01:23:52 PM Interpretation: Performing Lab: Notes/Report: HEMOGLOBIN A1C % (HH) 6.5 Reason For Referral No Information Medications Medication SIG (Take, Route, Frequency, Duration) Notes Start Date End Date Status Tylenol 325 MG 1 tablet as needed Orally every 6 hrs Active zzzCompression Stockings 20-30mm Hg . . .; Duration: . N ot-Taking Toujeo Max SoloStar 300 UNIT/ML INJECT 40 UNITS SUBCUTANEOUS DAILY Subcutaneous; Duration: 14 Days Active Repaglinide 2 MG 1 tablet 15 to 30 minutes before meals Orally Once a day Not-Taking Lantus 100 UNIT/ML 45 units Subcutaneous Not-Taking Citracal + D Not-[place] ing Cranberry 250 MG as directed Orally Active Flaxseed Oil 1000 MG as directed Orally Active Atenolol 150 Once a day Active Ozempic (0.25 or 0.5 MG/DOSE) 2 MG/3ML INJECT 0.25 MG SUBCUTANEOUS EVERY WEEK Subcutaneous; Duration: 28 Days Active Trulicity 1.5 MG/0.5ML as directed Subcutaneous once weekly Not-Taking Januvia 100 MG 1 tablet Orally Once a day; Duration: 30 day(s) Not-Taking amLODIPine Besylate 10 MG 1 tablet Orally Once a day Active vitamin Active Fish Oil 1200 MG as directed Orally 2x a day Active Norvasc 2.5 MG 1 tablet Orally Once a day Not-Taking Lisinopril 30 MG 1 tablet Orally Once a day Active Extra Depth Orthopedic Shoes (1 Pair) with Customized Heat Molded Multidensity Innersoles (3 Pair) Dx: NIDDM/Polyneuropathy (E11.42), Hammertoe Foot Deformity (M20.41,M20.42), Preulcerative Skin Lesion(s) (L85.1); Duration: 365 days 03/04/2025 Active Atorvastatin Calcium 20 MG 1 tablet Orally Once a day; Duration: 30 day(s) Active Jardiance 25 MG 1 tablet Orally Once a day Active Atenolol 50 MG 3 tablet Orally Once a day Not-Taking Extra Depth Orthopedic Shoes (1 Pair) with Customized Heat Molded Multidensity Innersoles (3 Pair) as directed Dx: NIDDM/Polyneuropathy (E11.42), Hammertoe Foot Deformity (M20.41,M20.42), Preulcerative Skin Lesion(s) (L85.1 08/17/2024 Active Aspirin 81 MG Orally Not-Ta prabha Multivitamin - 1 tablet Orally Once a day Active Lisinopril-hydroCHLOROt hiazide Not-Taking metFORMIN HCl 1000 MG 1 tablet with a me al Orally Once a day Active BD Pen Needle Short U/F Not-Taking Immunizations Vaccine Route Administration Date Status Comme nts Influenza Unknown 06/02/2015 Administered Influenza Unknown 04/05/2016 Administered Influenza Unknown 03/21/2017 Administered Influenza Unknown 06/10/2018 Administered Influenza Unknown 03/16/2019 Administered Influenza Unknown 03/04/2020 Administered Influenza Unknown 03/17/2021 Administered Influenza Unknown 03/23/2022 Administered Influenza Unknown 03/29/2023 Administered Influenza Unknown 03/22/2024 Administered COVID-19 Pfizer BioNTech Vaccine Unknown 03/17/2021 Administered First Dose: 02/24/2021 Social History Tobacco Use: Social History Observation [...] Problem Acquired hammer toe of right foot ([id number] ) Other hammer toe(s) (acquired), right foot (M20.41) Active confirmed Problem Acquired hammer toe of left foot ([id number] ) Other hammer toe(s) (acquired), left foot (M20.42) Active confirmed Problem Polyneuropathy due to type 2 diabetes mellitus (958757542) Type 2 diabetes mellitus with diabetic polyneuropathy (E11.42) Active confirmed Vital Signs Blood pressure diastolic 60 mm Hg 03/04/2025 Height 4ft 10in in 03/04/2025 Blood pressure systolic 126 mm Hg 03/04/2025 Weight 187 lbs 03/04/2025 BMI 39.08 kg/m2 03/04/2025 Procedures Procedure Date Ordered Date Performed Result Body Sit e 25156-TQSC SKIN LESIONS, OVER 4 08/17/2024 N/A E5713-JVPTIXUB DYSTROPHIC NAILS ANY # 08/17/2024 N/A 34910-DPNQ SKIN LESIONS, OVER 4 11/19/2024 N/A V1335-UORAYPZN DYSTROPHIC NAILS ANY # 11/19/2024 N/A 22473-VZYX SKIN LESIONS, OVER 4 03/04/2025 N/A U6575-ELCEAOAA DYSTROPHIC NAILS ANY # 03/04/2025 N/A Encounters Encounter Location Date Provider Diagnosis [address] [address] 08/17/2024 June Black Type 2 diabetes mellitus with diabetic polyneuropathy E11.42 ; Other hammer toe(s) (acquired), right foot M20.41 and Other hammer toe(s) (acquired), left foot M20.[address] [address] 11/19/2024 June Black Type 2 diabetes mellitus with diabetic polyneuropathy E11.42 and Skin ulcer of toe of left foot, limited to breakdown of skin L97.[address] [address] 03/04/2025 June Black Type 2 diabetes mellitus with diabetic polyneuropathy E11.42 ; Ingrown nail L60.0 ; Other hammer toe(s) (acquired), right foot [...] CARE INSTRUCTIONS. pdf (WOUND CARE INSTRUCTIONS. pdf) 03/04/2025 Type 2 diabetes mellitus with diabetic polyneuropathy (ICD-10 - E11.42) 03/04/2025 Ingrown nail (ICD-10 - L60.0) 08/17/2024 Other hammer toe(s) (acquired), right foot (ICD-10 - M20.41) Patient Educated with: DIABETIC FOOT CARE INSTRUCTIONS. pdf (DIABETIC FOOT CARE INSTRUCTIONS. pdf) 08/17/2024 Other hammer toe(s) (acquired), left foot (ICD-10 - M20.42) 03/04/2025 Other hammer toe(s) (acquired), right foot (ICD-10 - M20.41) Patient Educated with: DIABETIC FOOT CARE INSTRUCTIONS. pdf (DIABETIC FOOT CARE INSTRUCTIONS. pdf) 03/04/2025 Other hammer toe(s) (acquired), left foot (ICD-10 - M20.42) 11/19/2024 Other 03/04/2025 Other Plan Of Treatment Pending Test Test Name Order Date X ray : Foot, left 3V 03/12/2016 30919-YLTTRWN NAIL, 6 OR MORE 01/14/2020 67736-FOLVDIK NAIL, 6 OR MORE 03/17/2020 55215-PZUKCNI NAIL, 6 OR MORE 05/19/2020 75371-JCDXLZL NAIL, 6 OR MORE 08/11/2020 43781-LACCACA NAIL, 6 OR MORE 08/06/2019 73435-OAVTRTT NAIL, 6 OR MORE 11/24/2020 29782-LYXUMSY NAIL, 6 OR MORE 04/23/2011 11565-LPMJMPM NAIL, 6 OR MORE 07/02/2011 39880-XGZEBKF NAIL, 6 OR MORE 09/17/2011 16655-ROVTKOH NAIL, 6 OR MORE 11/26/2011 27008-HSJGNBO NAIL, 6 OR MORE 02/06/2012 39225-HHEXEIC NAIL, 6 OR MORE 04/23/2012 54135-FPLNPCS NAIL, 6 OR MORE 06/30/2012 46410-LTMBQOT NAIL, 6 OR MORE 2012 19507-SBOZMRF NAIL, 6 OR MORE 01/12/2013 22203-DOTFPFL NAIL, 6 OR MORE 10/27/2012 87332-FBHUPRD NAIL, 6 OR MORE 03/30/2013 69965-WYGBZOI NAIL, 6 OR MORE 06/15/2013 79803-BMDVLAQ NAIL, 6 OR MORE 09/09/2013 69943-BDHHSNJ NAIL, 6 OR MORE 11/11/2013 85164-BZGVDLR NAIL, 6 OR MORE 01/28/2014 88014-FNICFRE NAIL, 6 OR MORE 04/01/2014 66057-IFXQDKT NAIL, 6 OR MORE 06/21/2014 00698-FGTDNVM NAIL, 6 OR MORE 09/08/2014 52627-BTBWKCD NAIL, 6 OR MORE 02/02/2021 87468-KYTIFRZ NAIL, 6 OR MORE 05/18/2021 73220-ZMCEDHE NAIL, 6 OR MORE 08/31/2021 18555-XBCOLMT NAIL, 6 OR MORE 11/09/2021 66616-PLJFTPS NAIL, 6 OR MORE 02/08/2022 00982-AUAVVRV NAIL, 6 OR MORE 08/23/2022 27957-XWTKJCT NAIL, 6 OR MORE 12/06/2022 38474-LQGFSKA NAIL, 6 OR MORE 03/21/2023 32639-JQUBZPZ NAIL, 6 OR MORE 06/27/2023 27829-VUNAXPG NAIL, 1-5 03/21/2015 97698-RLSNGOX NAIL, 1-5 05/30/2015 15752-OKLXORS NAIL, 1-5 07/25/2015 04699-NPDXHNH NAIL, 1-5 10/05/2015 01285-QXVMRSP NAIL, 1-5 12/14/2015 38059-FZQVEBA NAIL, 1-5 03/12/2016 50794-DYIBXCU NAIL, 1-5 01/01/2019 10864-QDUZDGG NAIL, 07-2605/18/2019 12375-QSTAJFN NAIL, 07-2603/13/2018 42690-ACQLSAR NAIL, 07-2606/05/2018 98664-HAVGCRQ NAIL, 07-2608/14/2018 39184-DDUMHKR NAIL, 07-2610/23/2018 27859-PYZMXAP NAIL, 07-2603/09/2019 11539-XCETZIC NAIL, 07-2605/28/2016 02821-MDHOHQN NAIL, 07-2608/27/2016 99572-DHLYESF NAIL, 07-2611/12/2016 92839-GEWSWEU NAIL, 07-2601/07/2017 69285-ZEECLRA NAIL, 07-2603/18/2017 35121-JCIFWXG NAIL, 07-2605/20/2017 23036-RJDMJNL NAIL, 07-2608/12/2017 32289-QLFZRBM NAIL, 07-2610/24/2017 07649-JCKSKAC NAIL, 07-2601/02/2018 10295-Fjsrcpwb Plate 10/24/2017 47008-Mbdcwajv Plate 05/20/2017 58955-Uolhelxf Plate 03/18/2017 17288-Qubhvqpm Plate 11/12/2016 86164-Redzwmic Plate 08/27/2016 72266-Hiovwwab Plate 05/28/2016 88931-Izmbyalm Plate 03/09/2019 48614-Onnybtgj Plate 08/14/2018 71820-Qdncphfc Plate 03/13/2018 97341-Wjbyrjuo Plate 08/06/2019 62024-Mpcsmetg Plate 01/14/2020 08933-Pktjsada Plate 11/24/2020 48656-Cucnxmro Plate 08/11/2020 53654-Tdzkquye Plate 03/12/2016 84987-Foqicpyg Plate 12/14/2015 60633-Wtclekyh Plate 10/05/2015 86795-Sghpplow Plate 03/21/2015 30975-Eshcnwbg Plate 09/08/2014 61142-Ynokscss Plate 11/15/2014 21343-Exawetmi Plate 01/17/2015 18437-Tsgqhzwo Plate 06/21/2014 11912-Sqkokelo Plate 04/01/2014 82829-Dmzecqid Plate 01/28/2014 14954-Aiigvmlk Plate 11/11/2013 87583-Nwhqbrjp Plate 09/09/2013 07510-Qershsgy Plate 06/15/2013 61810-Dlenninv Plate 10/27/2012 67195-Umzgvlfy Plate 03/30/2013 71754-Clrmgfnv Plate 01/12/2013 41425-Zxeynjeb Plate 2012 79891-Kjtquheo Plate 06/30/2012 31996-Tcwjhihx Plate 02/06/2012 26321-Lyzdehyw Plate 11/26/2011 74837-Aobnkeuh Plate 03/21/2023 36434-Mbzaxjwr Plate 05/10/2022 02730-Oevuqofa Plate 11/09/2021 03904-Uqskmwka Plate 02/02/2021 79275-Rnjhilkb Plate 05/18/2021 67449-Ihxkobha Plate 08/31/2021 34975-Fuukdjgn Plate Each Additional 36637-Cvtjsxfi Plate Each Additional 78063-Jdfducej Plate Each Additional 01/2012 09950-Hqecurdl Plate Each Additional 97463-Dlcmwdmy Plate Each Additional 04/2012 88968-Vmmlqaxf Plate Each Additional 05/2013 72115-Eevkuxki Plate Each Additional 66720-Fzksufgz Plate Each Additional 03/2013 90855-Cggqtklz Plate Each Additional 02/2013 25235-Cntphoti Plate Each Additional 30439-Mhetswyl Plate Each Additional 44570-Kwwnapcc Plate Each Additional 04/2014 92345-Djjhcfgc Plate Each Additional 57299-Svppdker Plate Each Additional 59758-Dzmmdpej Plate Each Additional 65094-Vkiomzno Plate Each Additional 12/2020 11416-Dqyfqxuw Plate Each Additional 27880-Omavxqfm Plate Each Additional 43713-Shyevdom Plate Each Additional 35407-Iyqyhupj Plate Each Additional 08470-Rumkrjrm Plate Each Additional 11/2017 89212 I&D ABSCESS- SIMPLE,SINGLE 015 37763 I&D ABSCESS- SIMPLE,SINGLE 015 38684 I&D ABSCESS- SIMPLE,SINGLE 014 21565 I&D ABSCESS- SIMPLE,SINGLE 015 07146 I&D ABSCESS- SIMPLE,SINGLE 013 06471 I&D ABSCESS- SIMPLE,SINGLE 013 47957 I&D ABSCESS- SIMPLE,SINGLE 013 89223 I&D ABSCESS- SIMPLE,SINGLE 013 07067 I&D ABSCESS- SIMPLE,SINGLE 012 18109 I&D ABSCESS- SIMPLE,SINGLE 012 06728 I&D ABSCESS- SIMPLE,SINGLE 011 79597- I&D ABSCESS-COMPLICATED,MULTI 07/2013 21644-IAWR SKIN LESIONS, OVER 4 03/21/20 23 96807-VKHR SKIN LESIONS, OVER 4 10/07/19 24 65916-PRYF SKIN LESIONS, OVER 4 06/27/20 23 62599-NIDK SKIN LESIONS, OVER 4 01/30/20 24 94485-QSNW SKIN LESIONS, OVER 4 04/30/20 24 60827-IHUJ SKIN LESIONS, OVER 4 08/17/19 25 28681-KGIY SKIN LESIONS, OVER 4 11/20/19 25 31547-YKVT SKIN LESIONS, OVER 4 05/10/20 22 34877-AKML SKIN LESIONS, OVER 4 08/23/19 23 92706-FYLM SKIN LESIONS, OVER 4 12/07/19 23 84393-FZVT SKIN LESIONS, OVER 4 03/04/20 25 89545-VGWO SKIN LESIONS, 2 TO 4 02/09/20 22 84994-MTIB SKIN LESIONS, 2 TO 4 05/18/20 21 03943-SQQL SKIN LESIONS, 2 TO 4 11/10/19 22 71929-FKHN SKIN LESIONS, 2 TO 4 08/31/19 22 83228-UMJS SKIN LESIONS, 2 TO 4 10/05/19 16 66342-TQWM SKIN LESIONS, 2 TO 4 12/14/19 16 73621-SGRW SKIN LESIONS, 2 TO 4 03/12/20 16 13912-ZQJT SKIN LESIONS, 2 TO 4 10/25/19 18 89189-QFHZ SKIN LESIONS, 2 TO 4 01/03/20 18 82208-WOCA SKIN LESIONS, 2 TO 4 03/13/20 18 01924-NHIW SKIN LESIONS, 2 TO 4 05/20/20 17 31084-OICA SKIN LESIONS, 2 TO 4 08/12/19 18 06905-KJJE SKIN LESIONS, 2 TO 4 05/28/20 16 20936-JVVI SKIN LESIONS, 2 TO 4 08/27/19 17 54056-PXTL SKIN LESIONS, 2 TO 4 11/13/19 17 30177-WSCE SKIN LESIONS, 2 TO 4 03/18/20 17 99399-DMMJ SKIN LESIONS, 2 TO 4 01/08/20 17 16762-BAFS SKIN LESIONS, 2 TO 4 08/14/19 19 76446-QMVA SKIN LESIONS, 2 TO 4 06/05/20 18 20946-OFNZ SKIN LESIONS, 2 TO 4 10/24/19 19 64627-GZFB SKIN LESIONS, 2 TO 4 01/02/20 19 47611-THZG SKIN LESIONS, 2 TO 4 05/18/20 19 51915-NIIG SKIN LESIONS, 2 TO 4 03/09/20 19 32975-NMTO SKIN LESIONS, 2 TO 4 11/25/19 21 56915-WTUY SKIN LESIONS, 2 TO 4 02/03/20 21 L6607-TPCYRQSO DYSTROPHIC NAILS ANY # C6698-TGPLILVH DYSTROPHIC NAILS ANY # X2775-VETXHRLY DYSTROPHIC NAILS ANY # O8683-PTSNOOUX DYSTROPHIC NAILS ANY # E4312-VONCKHOP DYSTROPHIC NAILS ANY # W7878-FHKPDTQB DYSTROPHIC NAILS ANY # A6589-AEKTMPYK DYSTROPHIC NAILS ANY # L6479-XDNSFVTW DYSTROPHIC NAILS ANY # I1777-JANWMUIB DYSTROPHIC NAILS ANY # O9445-WAPVZDOA DYSTROPHIC NAILS ANY # N5831-ANMOSUJI DYSTROPHIC NAILS ANY # N8840-OCWLSIZE DYSTROPHIC NAILS ANY # L8201-HOFALKBL DYSTROPHIC NAILS ANY # F7352-ESBZIOSL DYSTROPHIC NAILS ANY # B1657-OYSDKUGL DYSTROPHIC NAILS ANY # Y8128-DXMZGETH DYSTROPHIC NAILS ANY # S6921-QEMHMQGW DYSTROPHIC NAILS ANY # P8185-RMUDHBMT DYSTROPHIC NAILS ANY # Z9437-QNOALLJS DYSTROPHIC NAILS ANY # C5938-EEKYYIXK DYSTROPHIC NAILS ANY # P8168-DQKUVQIQ DYSTROPHIC NAILS ANY # Y6208-VCLNNKXB DYSTROPHIC NAILS ANY # G1985-QWLFRUQI DYSTROPHIC NAILS ANY # R5490-COUUISBK DYSTROPHIC NAILS ANY # V9347-PBXPGSAM DYSTROPHIC NAILS ANY # Q4884-RRZUYVKC DYSTROPHIC NAILS ANY # Next Appt Details Provider Name:June Hinojosa , 06/10/2025 01:30:00 PM, [address] [place], [address], Insurance Providers Payer Name Payer Address Payer Phone Subscriber Number Group Number Insured Name Patient Relationship to Insured Coverage Start Date Coverage End Date [facility] 67 Medicare Preferred [address] [place] [address] [phone] [id number] Emily Watters Self - patient is the insured Medical (General) History Medical History History ICD Code transfusions chicken pox hypertension diabetes mellitus Cholesterol Other hammer toe(s) (acquired), right fo ot M20.41 Other hammer toe(s) (acquired), left anabel t M20.42 Surgical History Surgery Date(Month/Year) hysterectomy 1996 Hospitalization History Reason Date(Month/Year) Sebatious cyst removal on chest - [facility] [place] liver ultrasound 02/17/16
--- OUTSIDE RECORDS SUMMARY | 2025-05-07 06:13 | XMS_ITS | Clinical Summary ---
Author Organization [facility] Address [address] [place] [address] Phone Care Team Providers Care Box Estimator Name Role Phone Elsy Santoyo MD Primary Care Provider [phone] Allergies No known active allergies Medications Multiple Vitamin (MULTIVITAMIN ADULT PO) Take 1 capsule by mouth 1 (one) time each day Active [place]-3 Fatty Acids (Fish Oil Concentrate) 1000 MG [...] average glucose, using the formula of the M5N-Qjhnkeb Average Glucose study (ADAG), Diabetes Care, Vol.31,#8, Feb. 2007 03/17/2020 6:20 AM EDT Elsy Santoyo MD LAB BLOOD ORDERABLES Final Result CELIKISHORE from Last 3 Months or Most Recently Relevant to Health Maintenance Insurance [facility] [employer]([id number]) [facility] [employer]([id number]) Care Teams Box Estimator Relationship Specialty Start Date End Date Elsy Santoyo MD [address] [place] [id number] PCP - General Internal Medicine 04/14/21
[2025-05-07 10:13] LABS: Appearance Urine Clear; Glucose Urine UA 500 mg/dL (Negative); PH 5.5 (5.0-9.0); Specific Gravity - Urine 1.010 (1.005-1.025); UMIC TRIGGER UA YES
[2025-05-07 11:03] LABS: Hemoglobin A1C 151.3594 umol/L
[2025-05-07 11:54] LABS: Total Protein Urine Random < 7 mg/dL (<12)
[2025-05-07 13:51] LABS: Anion Gap 14 (12-20); Blood Urea Nitrogen 18 mg/dL (9-16); Calcium 9.2 mg/dL (8.4-10.2); Carbon Dioxide 26 mmol/L (22-29); Chloride 103 mmol/L (96-108); Estimated Glomerular Filt Rate 57; Potassium 4.0 mmol/L (3.3-5.1); Sodium 139 mmol/L (135-145)
== END 2025-05-07 06:10 | disposition home or self-care (01) ==
LOC: HO.HMGCLDS 06:09
PROVIDERS: Absent Provider Internal Medicine Hypertension Specialist; PCP Internal Medicine; Visit Provider Internal Medicine
DX: E11.22 Type 2 diabetes mellitus with diabetic chronic kidney disease (principal); N18.30 Chronic kidney disease, stage 3 unspecified; R80.9 Proteinuria, unspecified
CPT/HCPCS: 36415; 80048; 81001; 82570; 83036; 84156

== ENCOUNTER 2025-05-13 09:48 | Outpatient (AMB) | payer MEDICARE, SELFPAY ==
[2025-05-13 10:00] VITALS: BP 152/80; PULSE 93; O2SAT 95; BMI 51.7
--- NOTE | 2025-05-13 10:00 | HO.NEPHOV ---
Vital Signs 05/13/25 10:00 05/13/25 10:13 Height 4 ft 2 in Weight 184 lb BMI 51.7 BP 152/80 H 130/80 Blood Pressure Location Rt brachial Rt brachial Position Sitting Sitting Pulse 93 Pulse Source Pulse Oximeter Pulse Oximetry (%) 95 Oxygen Delivery Method Room Air Intake Visit Reasons: 6 MO FU, confirmed Assistant Office Manager Required: No Accompanied by: Self / Same As Patient Allergies No Known Allergies (No Known Allergies*) Allergy (Verified 05/13/25 10:03) Medication List - Last Reconciled 05/13/25 by Chay Dominique MD acetaminophen ER (Tylenol Arthritis Pain) 650 mg PO Q12H amlodipine 10 mg PO DAILY atenolol 150 mg (1.5 x 100 mg) PO DAILY 90 days atorvastatin 20 mg PO DAILY blood sugar diagnostic (Sound Cl[employer]uch Verio test strips) Three times a day blood-glucose meter ([employer] Aviation[employer] Verio Meter) As directed cranberry extract 250 mg PO DAILY empagliflozin (Jardiance) 25 mg PO DAILY flaxseed oil 1,000 mg PO BID lancets (Sound Clipsuch Delica Plus Lancet) CHECK BLOOD SUGAR THREE TIMES DAILY BEFORE MEALS lisinopril 30 mg PO DAILY metformin 1,000 mg PO BIDWMEAL 3 months multivitamin with minerals 1 cap PO DAILY omega 5-xqz-yje-fish oil 1,200 (144-216) mg (Fish Oil) caps PO Ozempic (semaglutide) 0.5 mg (0.736 mL) subcut QWEEK 30 days NS pen needle, diabetic Use daily as directed subcut daily; Toujeo Max U-300 SoloStar (insulin glargine U-300 conc) 40 units (0.1333 mL) subcut DAILY 3 months NS HPI Comments Details: Erica is a elderly woman with his obesity and hypertension with minimal proteinuria. She is here for same and will follow-up. A1C has improved - down to 6.5% BP well controlled Recently diabetic meds have benen changed due to insurance issues VIT D on hold due to high levels Still with edema Ozempic was started last week 05/13/25 - The patient is a 79-year-old female presenting with hypertension and proteinuria. - Hypertension: BP 152/80 mmHg, usually 124-138 mmHg. - Proteinuria: No protein detected in recent urinalysis. - Weight management: Weight reduced from 202 to 184 pounds with Ozempic. - Dietary habits: Two meals daily with light snacks. - Leg swelling: Improved with low-salt diet. PFSH Medical History Surgical menopause Gait instability Papanicolaou smear declined Colonoscopy refused Obesity due to excess calories Type 2 diabetes mellitus with chronic kidney disease Mixed dyslipidemia Essential hypertension DUB (dysfunctional uterine bleeding) CKD stage 3 secondary to diabetes Mammogram declined Surgical History Hx of hysterectomy S/P LOLIS-BSO Family History Father CAD (coronary artery disease) Mother Diabetes mellitus Lung cancer Sister Diabetes mellitus Social History Household Members: None Housing: House Alcohol intake: never Patient Tobacco Use Status: Former Tobacco user Years Smoked: 14 yrs e-Cigarette/Vaping Use: Never Used service: No Current occupational status: employed Cognitive needs: No Hearing needs: No Vision needs: Yes Physical Exam Vital Signs: Last Vital Signs Pulse 93 05/13/25 10:00 BP 130/80 05/13/25 10:13 Pulse Ox 95 05/13/25 10:00 Oxygen Delivery Method Room Air 05/13/25 10:00 BMI result Body Mass Index 51.7 Comfortable Neck supple no JVD. Lungs entry equal no rales. Heart S1-S2 heard no gallop or rub. Abdomen soft nontender. Neuro alert awake oriented. No asterixis. Extremities no edema. Results Reviewed Nephrology Results: Sodium, (135-145) 139 mmol/L 05/07/25 Potassium, (3.3-5.1) 4.0 mmol/L 05/07/25 Chloride, (96-108) 103 mmol/L 05/07/25 Carbon Dioxide, (22-29) 26 mmol/L 05/07/25 BUN, (9-16) 18 mg/dL H 05/07/25 Creatinine, (0.5-1.4) 0.95 mg/dL 05/07/25 Calcium, (8.4-10.2) 9.2 mg/dL 05/07/25 Urine Protein, (Neg-Trace) Negative mg/dL 05/07/25 Urine Creatinine 18.04 mg/dL 05/07/25 Assessment & Plan Assessment & Plan (1) Type 2 diabetes mellitus with chronic kidney disease: Code(s): E11.22 - Type 2 diabetes mellitus with diabetic chronic kidney disease Category: Medical Qualifiers: Chronic kidney disease stage: stage 3 (moderate) Chronic kidney disease stage 3 subtype: unspecified whether 3a or 3b Diabetes mellitus fpc insulin use: without fpc use Qualified Code(s): E11.22 - Type 2 diabetes mellitus with diabetic chronic kidney disease; N18.30 - Chronic kidney disease, stage 3 unspecified Plan: Goals of maintain the hemoglobin A1c less than 7%. The A1c is gradually trending down. I have encouraged her to monitor her diet and try to achieve a hemoglobin A1c of less than 7%. She will also benefit from weight loss. (2) Essential hypertension: Code(s): I10 - Essential (primary) hypertension Category: Medical Plan: Blood pressure is acceptable today. Initial reading was elevated Increase fluids and stay on low-sodium diet. She should lose weight. Agree with Ozempic Encouraged to monitoring of blood pressure at home as well (3) Proteinuria: Comment: Microalbuminuria Code(s): R80.9 - Proteinuria, unspecified Category: Medical Qualifiers: Proteinuria type: unspecified Qualified Code(s): R80.9 - Proteinuria, unspecified Plan: Keep Brenton inhibition Plan Edema_ Chronic- asymptomatic Amlodipine could be contributing. Stay on low salt diet Orders: Orders Total Protein Urine Random 6 Months I10 - Essential (primary) hypertension Creatinine Urine 6 Months I10 - Essential (primary) hypertension Basic Metabolic Panel 6 Months I10 - Essential (primary) hypertension UA and rflx microscopic 6 Months I10 - Essential (primary) hypertension Coding Level of Care Code Est Pt Level 4 (51579) Diagnoses Type 2 diabetes mellitus with stage 3 chronic kidney disease, without long-term current use of insulin, unspecified whether stage 3a or 3b CKD E11.22; N18.30 Chronic kidney disease stage: stage 3 (moderate) Chronic kidney disease stage 3 subtype: unspecified whether 3a or 3b Diabetes mellitus fpc insulin use: without terminal supervisor use Essential hypertension I10 Proteinuria, unspecified type R80.9 Proteinuria type: unspecified
[2025-05-13 10:13] VITALS: BP 130/80
--- OUTSIDE RECORDS SUMMARY | 2025-05-13 11:15 | XMS_ITS | Clinical Summary ---
Author Organization [facility] Address [address] [place] [address] Phone Care Team Providers Care Latex Caster Name Role Phone Elsy Santoyo MD Primary Care Provider +1- [phone] Allergies No known active allergies Medications Multiple Vitamin (MULTIVITAMIN ADULT PO) Take 1 capsule by mouth 1 (one) time each day Active [place]-3 Fatty Acids (Fish Oil Concentrate) 1000 MG [...] average glucose, using the formula of the Z8L-Gcayhfa Average Glucose study (ADAG), Diabetes Care, Vol.31,#8, Feb. 2007 03/17/2020 6:20 AM EDT Elsy Santoyo MD LAB BLOOD ORDERABLES Final Result CELIKISHORE from Last 3 Months or Most Recently Relevant to Health Maintenance Insurance [facility] [employer]([id number]) [facility] [employer]([id number]) Care Teams Latex Caster Relationship Specialty Start Date End Date Elsy Santoyo MD [address] [place] [id number] PCP - General Internal Medicine 04/14/21
== END 2025-05-13 10:18 | disposition home or self-care (01) ==
LOC: HO.HKA 09:49
PROVIDERS: PCP Internal Medicine; Visit Provider Internal Medicine Hypertension Specialist
DX: E11.22 Type 2 diabetes mellitus with diabetic chronic kidney disease (principal); N18.30 Chronic kidney disease, stage 3 unspecified; I10 Essential (primary) hypertension; R80.9 Proteinuria, unspecified
CPT/HCPCS: 99214

== ENCOUNTER → 2025-05-13 09:48 | Outpatient (BNVA) | payer MEDICARE, SELFPAY | PROVIDERS: PCP Internal Medicine; Visit Provider Internal Medicine Hypertension Specialist | DX: E11.22 Type 2 diabetes mellitus with diabetic chronic kidney disease (principal); I10 Essential (primary) hypertension; N18.30 Chronic kidney disease, stage 3 unspecified; R80.9 Proteinuria, unspecified | CPT/HCPCS: 99212 ==

== ENCOUNTER 2025-06-03 13:10 | Outpatient (AMB) | payer MEDICARE, SELFPAY ==
--- NOTE | 2025-06-03 13:19 | A.OFFPC_ITS ---
Vital Signs 06/03/25 13:20 Height 4 ft 2 in Weight 182 lb BMI 51.2 BP 122/80 Blood Pressure Location Lt brachial Position Sitting Respiration 16 Pulse 86 Pulse Source Pulse Oximeter Temp 97.9 F Temp Source Oral Pulse Oximetry (%) 94 Oxygen Delivery Method Room Air Intake Visit Reasons: 4m follow up Intake Note: Pt is here today for her 4mo. f/u Allergies No Known Allergies (No Known Allergies*) Allergy (Verified 06/13/25 13:42) Medication List - Last Reconciled 06/13/25 by Candice Santoyo MD acetaminophen ER (Tylenol Arthritis Pain) 650 mg PO Q12H amlodipine 10 mg PO DAILY atenolol 150 mg (1.5 x 100 mg) PO DAILY 90 days atorvastatin 20 mg PO DAILY blood sugar diagnostic ([email or web address] Verio test strips) Three times a day blood-glucose meter ([email or web address] Verio Meter) As directed cranberry extract 250 mg PO DAILY empagliflozin (Jardiance) 25 mg PO DAILY flaxseed oil 1,000 mg PO BID FreeStyle Karely 3 Plus Sensor (blood-glucose sensor) As directed NS lancets (Ludium LabTouch Delica Plus Lancet) CHECK BLOOD SUGAR THREE TIMES DAILY BEFORE MEALS lisinopril 30 mg PO DAILY metformin 1,000 mg PO BIDWMEAL 3 months multivitamin with minerals 1 cap PO DAILY omega 5-lkb-zaf-fish oil 1,200 (144-216) mg (Fish Oil) caps PO Ozempic (semaglutide) 0.5 mg (0.736 mL) subcut QWEEK 30 days NS pen needle, diabetic Use daily as directed subcut daily; Toujeo Max U-300 SoloStar (insulin glargine U-300 conc) 40 units (0.1333 mL) subcut DAILY 3 months NS Tobacco use date assessed: 06/03/25 Fall risk assessment: No Falls in past year Dental Screening Dental Screen Date: 06/03/25 Did you have a dental visit in the last 12 months?: Yes Did you have a dental problem in the last 6 months where you did not have access to dental care?: No Was dental information given to patient?: Patient has dentist HPI 4m follow up HPI Details 79-year-old female with past medical history of diabetes mellitus, CKD , HTN , Dyslipidemia , Obesity , here for a follow up. Diabetes mellitus is currently managed with metformin, Ozempic, and Jardiance. Recent labs show her A1c is well-controlled at less than 6.5, and her average blood glucose over three months was 128. She monitors her blood sugar via finger pricks, with a recent morning reading of 99, but reports occasional drops to as low as 72. She had a prior trial of a [employer]Form[employer]style Karely CGM, which she states kept falling off, refer to do fingersticks instead. The patient has chronic kidney disease, which has shown improvement, with her kidney function . A urine microalbumin test earlier in the year was slightly elevated. Her cholesterol was normal on labs from January. The patient was previously on vitamin D supplements, but they were discontinued due to high levels; she was advised to take lggk-yip-kdqvbyk vitamin D3 supplement 2000 IU daily for the winter. patient states she does not believe in mammograms or Pap smears and declines this screening. [facility] Medical History Surgical menopause Gait instability Papanicolaou smear declined Colonoscopy refused Obesity due to excess calories Type 2 diabetes mellitus with chronic kidney disease Mixed dyslipidemia Essential hypertension DUB (dysfunctional uterine bleeding) CKD stage 3 secondary to diabetes Mammogram declined Surgical History Hx of hysterectomy S/P LOLIS-BSO Family History Father CAD (coronary artery disease) Mother Diabetes mellitus Lung cancer Sister Diabetes mellitus Social History Household Members: None Housing: House Alcohol intake: never Patient Tobacco Use Status: Former Tobacco user Years Smoked: 14 yrs e-Cigarette/Vaping Use: Never Used service: No Current occupational status: employed Cognitive needs: No Hearing needs: No Vision needs: Yes Questionnaire PHQ-9 Over the last 2 weeks, how often have you been bothered by any of the following problems? 1. Little interest or pleasure in doing things: not at all 2. Feeling down, depressed, or hopeless: not at all 3. Trouble falling or staying asleep, or sleeping too much: not at all 4. Feeling tired or having little energy: not at all 5. Poor appetite or overeating: not at all 6. Feeling bad about yourself - or that you are a failure or have let yourself or your family down: not at all 7. Trouble concentrating on things, such as reading the newspaper or watching television: not at all 8. Moving or speaking so slowly that other people could have noticed. Or the opposite - being so fidgety or restless that you have been moving around a lot more than usual: not at all 9. Thoughts that you would be better off or of hurting yourself in some way: not at all Total score: 0 Depression Screening Interpretation: Negative Depression Screening Done: Yes Source: Developed by Drs. Ike Michelle, Gege Mary, David Borges and colleagues, with an educational shae from [employer]. Thrive Questionnaire Date Thrive assessed: 10/15/24 I am a: Patient What is your living situation today?: I have a steady place to live Within the past 12 months, did the food you bought not last and you didn't have the money to get more?: Never true Within the past 12 months, did you worry whether your food would run out before you got money to buy more?: Never true Do you have trouble paying for medicines?: No Do you have trouble getting transportation to medical appointments?: No Do you have trouble paying your heating and electricity bill?: No Do you have trouble taking care of your child, family member or friend?: No Do you have trouble with day-to-day activities such as bathing, preparing meals, shopping, managing finances, etc.?: No Are you currently unemployed and looking for a job?: No Are you interested in more education?: No Please select the resources that you would like help with: None Currently or been in a relationship where the following occur: No concerns reported THRIVE Score: 0 AUDIT C Alcohol Use Questionnaire (AUDIT-C) 1. How often do you have a drink containing alcohol?: Never Total Score: 0 JOSH-7 AMB Questionnaire JOSH-7 Date JOSH - 7 assessed: 10/15/24 Feeling nervous, anxious, or on edge: 0 = Not at all Not being able to stop or control worryin = Not at all Worrying too much about different things: 0 = Not at all Trouble relaxin = Not at all Being so restless that it is hard to sit still: 0 = Not at all Becoming easily annoyed or irritable: 0 = Not at all Feeling afraid as if something awful might happen: 0 = Not at all Total JOSH-7 score (0-4 normal; 5-9 mild; 10-14 moderate; 15-21 severe): 0 Source: Developed by Drs. Ike Michelle, Gege Mary, David Borges and colleagues, with an educational shea from [employer]. Review of Systems Const Denies body aches, Denies fatigue, Denies headache(s) and Denies malaise Eyes Details: Sees Dr. Carbajal yearly Denies itchy eyes ENT Reports no additional complaints, Denies vertigo, Denies dizziness and Denies headache(s) Card Denies palpitations and Denies dyspnea Resp Denies cough and Denies dyspnea GI Denies abdominal pain, Denies melena, Denies hematochezia, Denies change in bowel habits and Denies heartburn Denies hematuria, Denies urinary frequency, Denies dysuria and Reports urinary incontinence (occasional) Musc Denies muscle weakness, Denies numbness, Reports stiffness and Denies tingling Skin/Breast Denies breast pain, Denies breast mass and Denies rash Neuro Denies vertigo, Denies dizziness, Denies headache(s), Denies focal weakness, Denies numbness, Denies Sensory deficit (Neuro), Denies tingling and Denies paresthesias Psych Denies depression Endo Denies fatigue, Denies polydipsia, Reports polyuria and Denies palpitations Obi/Lymph Denies easy bruising Aller/Immun Denies urticaria, Denies itchy eyes and Denies seasonal rhinorrhea Physical exam (Primary Care) Vital Signs: Last Vital Signs Temp 97.9 F 06/03/25 13:20 Pulse 86 06/03/25 13:20 Resp 16 06/03/25 13:20 BP 122/80 06/03/25 13:20 Pulse Ox 94 06/03/25 13:20 Oxygen Delivery Method Room Air 06/03/25 13:20 BMI result Body Mass Index 51.2 BMI Assessment/Plan discussion: High BMI High, discussed plan: lifestyle, weight reduction, dietary and physical activity Tobacco/Smoking Status: Tobacco use Status Tobacco use date assessed 06/03/25 06/03/25 13:30 Patient Tobacco Use Status Former Tobacco user 06/03/25 13:25 e-Cigarette/Vaping Use Never Used 06/03/25 13:25 PHQ-9: PHQ-9 Score PHQ-9: Total score 0 06/03/25 13:56 Depression Screening Interpretation: Negative Thrive Assessment: Date of Thrive Assessment Date Thrive assessed 10/15/24 06/03/25 13:25 Currently or been in a relationship where the following occur: No concerns reported Const General: comfortable and no acute distress Nutritional Appearance: obese morbidly obese Orientation/consciousness: patient oriented x3 HENMT Ears: external ears normal General nose exam: Normal external nose present Mouth: Normal oral and palatal mucosa present, oropharynx normal and moist mucous membranes Eyes General: appearance normal, both eyes and all related structures Neck Neck: Yes full ROM, Yes no lymphadenopathy and Yes supple Resp Effort & Inspection: normal respiratory effort and able to speak in complete sentences Auscultation: clear to auscultation bilaterally Cardio Rate: regular rate Rhythm: regular rhythm Heart sounds: S1 normal heart sound present and S2 normal heart sound present GI Inspection: Yes obesity Palpation (GI): Soft to palpation, nontender, no guarding and no masses Auscultation: normal bowel sounds Back/Spine/Pelvis Cervical Spine: cervical ROM normal Thoracic/Lumbar Spine: thoracic and lumbar spine normal to inspection Skin General skin exam: no rashes or lesions noted Neuro General: patient oriented x3, tone normal, moves all extremities, Normal light touch and pain sensation and no focal motor deficits Cognition (Neuro): normal cognition Motor exam (neuro): 5/5 motor strength present throughout Sensory Exam: No Sensory deficit (Neuro) Extrem General: Yes full ROM, Yes no joint enlargement, Yes no pedal edema, Yes no calf tenderness and Yes normal gait Psych Mental Status: mental status grossly normal Affect: normal affect Results Reviewed Results Reviewed: Laboratory Tests 05/07/25 06:35 Estimat Average Glucose 128 Hemoglobin A1c % 6.1 H rocio: Es Watters Age/Sex: 79/F : 1945 Unit#: [id number] Attend Dr: Candice Santoyo MD Re05/07/25 Status: DEP REF Location: [facility] Disch: SPEC : [id number] RAMANDEEP: 05/07/25 STATUS: COMP REQ : [id number] RECD: 05/07/25-[address]: Chay Dominique MD COMP: 05/07/25 ENTERED: 05/07/[address]: Candice Santoyo MD ORDERED: BMP Test Result Flag Reference Sodium 139 135-145 mmol/L Potassium 4.0 3.3-5.1 mmol/L CL 103 96-108 mmol/L CO2 26 22-29 mmol/L Gap 14 12-20 BUN 18 H 9-16 mg/dL Creat 0.95 0.5-1.4 mg/dL eGFR 57 Chronic Kidney Disease: Estimated GFR < 60 mL/min/1.73m2 Severe Kidney Disease: Estimated GFR < 15 mL/min/1.73m2 Glucose, Random 117 H 60-115 mg/dL CA 9.2 8.4-10.2 mg/dL rocio: Es Watters Age/Sex: 79/F : 1945 Unit#: [id number] Attend Dr: Candice Santoyo MD Re01/21/25 Status: DEP REF Location: [facility] Disch: SPEC : [id number] RAMANDEEP: 01/21/25 STATUS: COMP REQ : [id number] RECD: 01/21/[address]: Candice Santoyo MD COMP: 01/21/256 ENTERED: 01/21/[address]: ORDERED: Met Prof Fast, AST, ALT, Lipid Panel, TSH Rflx Test Result Flag Reference Sodium 137 135-145 mmol/L Potassium 3.7 3.3-5.1 mmol/L CL 103 96-108 mmol/L CO2 26 22-29 mmol/L Gap 12 12-20 BUN 18 H 9-16 mg/dL Creat 1.01 0.5-1.4 mg/dL eGFR 53 Chronic Kidney Disease: Estimated GFR < 60 mL/min/1.73m2 Severe Kidney Disease: Estimated GFR < 15 mL/min/1.73m2 FBS 95 60-99 mg/dL CA 9.5 8.4-10.2 mg/dL AST (GOT) 29 5-31 U/L ALT (GPT) 26 0-31 U/L Triglyceride 164 H <150 mg/dL Desirable Triglyceride: less than 150 mg/dL Borderline High Triglyceride 150-199 mg/dL High Triglyceride: 200-499 mg/dL Very High Triglyceride: greater than or equal to 5OO mg/dL Cholesterol 150 <200 mg/dL Desirable Cholesterol: less than 200 mg/dL Borderline High Cholesterol: 200-239 mg/dL High Cholesterol: greater than 239 mg/dL LDL Calculated 68 <100 mg/dL Desirable LDL: less than 100 mg/dL Near Optimal/Above Optimal LDL: 110-129 mg/dL Borderline High LDL: 130-159 mg/dL High LDL: 160-189 mg/dL Very High LDL: greater than or equal to 190 mg/dL HDL 50 >40 mg/dL Desirable HDL: greater than 40 mg/dL Note: This HDL assay may give artificially low results in patients with liver disease. 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 insulin use: without jail use Surgical menopause E89.40 Assessment & Plan Assessment & Plan (1) Mixed dyslipidemia: Code(s): E78.2 - Mixed hyperlipidemia Category: Medical Plan: Continued on [place] 3 fatty acid supplements, and atorvastatin 20 mg daily (2) Type 2 diabetes mellitus with chronic kidney disease: Code(s): E11.22 - Type 2 diabetes mellitus with diabetic chronic kidney disease Category: Medical Qualifiers: Chronic kidney disease stage: stage 3 (moderate) Chronic kidney disease stage 3 subtype: unspecified whether 3a or 3b 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 Reinforced diabetic diet and regular exercise with patient. Up-to-date with her diabetes retinopathy screening. Patient advised to inspect feet daily, for any signs of injury, callus or infection. Compliance with diet and regular exercise again stressed. Blood pressure goal is less than 130/80, goal LDL is less than 100 and goal hemoglobin A1c is less than 7% follow-up in September 2025, do fasting labs prior to appointment. Will try again switching her to freestyle Karely glucose sensor instead of doing fingersticks, referred to nurse navigator for guidance in using freestyle Karely (3) Surgical menopause: Code(s): E89.40 - Asymptomatic postprocedural ovarian failure Category: Medical Plan: Continue vitamin D3 supplements Orders: Orders Hemoglobin A1c 3 Months E78.2 - Mixed hyperlipidemia, E11.22 - Type 2 diabetes mellitus with diabetic chronic kidney disease, N18.30 - Chronic kidney disease, stage 3 unspecified, E89.40 - Asymptomatic postprocedural ovarian failure Lipid Panel 3 Months E78.2 - Mixed hyperlipidemia, E11.22 - Type 2 diabetes mellitus with diabetic chronic kidney disease, N18.30 - Chronic kidney disease, stage 3 unspecified, E89.40 - Asymptomatic postprocedural ovarian failure Alanine Aminotransferase 3 Months E78.2 - Mixed hyperlipidemia, E11.22 - Type 2 diabetes mellitus with diabetic chronic kidney disease, N18.30 - Chronic kidney disease, stage 3 unspecified, E89.40 - Asymptomatic postprocedural ovarian failure Aspartate Amino Transferase 3 Months E78.2 - Mixed hyperlipidemia, E11.22 - Type 2 diabetes mellitus with diabetic chronic kidney disease, N18.30 - Chronic kidney disease, stage 3 unspecified, E89.40 - Asymptomatic postprocedural ovarian failure Microalbumin, Random (w Creat) 3 Months E78.2 - Mixed hyperlipidemia, E11.22 - Type 2 diabetes mellitus with diabetic chronic kidney disease, N18.30 - Chronic kidney disease, stage 3 unspecified, E89.40 - Asymptomatic postprocedural ovarian failure Vitamin D 25-OH Total 3 Months E78.2 - Mixed hyperlipidemia, E11.22 - Type 2 diabetes mellitus with diabetic chronic kidney disease, N18.30 - Chronic kidney disease, stage 3 unspecified, E89.40 - Asymptomatic postprocedural ovarian failure Medications: New FreeStyle Karely 3 Plus Sensor (blood-glucose sensor) As directed 2 ea 5RF NS E11.22 - Type 2 diabetes mellitus with diabetic chronic kidney disease, N18.30 - Chronic kidney disease, stage 3 unspecified
[2025-06-03 13:20] VITALS: BP 122/80; PULSE 86; RESP 16; TEMP 36.6; O2SAT 94; BMI 51.2
--- OUTSIDE RECORDS SUMMARY | 2025-06-03 16:31 | XMS_ITS | Clinical Summary ---
Author Organization [facility] Address [address] [place] [address] Phone Care Team Providers Care Certified Professional Ergonomist Name Role Phone Elsy Santoyo MD Primary Care Provider [phone] Allergies No known active allergies Medications Multiple Vitamin (MULTIVITAMIN ADULT PO) Take 1 capsule by mouth 1 (one) time each day Active [place]-3 Fatty Acids (Fish Oil Concentrate) 1000 MG [...] Years Used Date Smoking Tobacco: Former Cigarettes 15 0 07/22/1968 - 07/22/1983 Smokeless Tobacco: Former [...] average glucose, using the formula of the M2A-Uthotbj Average Glucose study (ADAG), Diabetes Care, Vol.31,#8, Feb. 2007 03/17/2020 6:20 AM EDT Elsy Santoyo MD LAB BLOOD ORDERABLES Final Result [place]EL[place] from Last 3 Months or Most Recently Relevant to Health Maintenance Insurance [facility] [employer]([id number]) [facility] [employer]([id number]) Care Teams Certified Professional Ergonomist Relationship Specialty Start Date End Date Elsy Santoyo MD PCP - General Internal Medicine 04/14/21
--- OUTSIDE RECORDS SUMMARY | 2025-06-03 16:31 | XMS_ITS | Patient Health Record ---
[facility] Address [address] [place] [address] Care Team Providers Care Document Image Technician Name Role Phone Natanael CLEMENT, Candice Esquivel Primary Care Provider Un available Black, June Unavailable [phone] Allergies No Known Allergies Results Component Value [...] Unknown 03/29/2023 Administered Influenza Unknown 03/22/2024 Administered Social History Tobacco Use: Social History [...] Problem Acquired hammer toe of right foot (0221094988356185 ) Other hammer toe(s) (acquired), right foot (M20.41) Active confirmed Problem Acquired hammer toe of left foot (0890069047959788 ) Other hammer toe(s) (acquired), left foot (M20.42) Active confirmed Problem Polyneuropathy due to type 2 diabetes mellitus (265287505) Type 2 diabetes mellitus with diabetic polyneuropathy (E11.42) Active confirmed Vital Signs Blood pressure diastolic 60 mm Hg 03/04/2025 Height 4ft 10in in 03/04/2025 Blood pressure systolic 126 mm Hg 03/04/2025 Weight 187 lbs 03/04/2025 BMI 39.08 kg/m2 03/04/2025 Procedures Procedure Date Ordered Date Performed Result Body Sit e 55518-IAHC SKIN LESIONS, OVER 4 08/17/2024 N/A U3788-CCJDAIUP DYSTROPHIC NAILS ANY # 08/17/2024 N/A 92977-IXMA SKIN LESIONS, OVER 4 11/19/2024 N/A A7830-LRUBKFHJ DYSTROPHIC NAILS ANY # 11/19/2024 N/A 95627-DDFG SKIN LESIONS, OVER 4 03/04/2025 N/A U7842-WNUCTLSX DYSTROPHIC NAILS ANY # 03/04/2025 N/A Encounters Encounter Location Date Provider Diagnosis [address] [address] 08/17/2024 June Black Type 2 diabetes mellitus with diabetic polyneuropathy E11.42 ; Other hammer toe(s) (acquired), right foot M20.41 and Other hammer toe(s) (acquired), left foot M20.[address] [address] 11/19/2024 June Black Type 2 diabetes mellitus with diabetic polyneuropathy E11.42 and Skin ulcer of toe of left foot, limited to breakdown of skin L97.[address] [address] 03/04/2025 June Black Type 2 diabetes mellitus [...] X ray : Foot, left 3V 03/12/2016 91351-KUMYUKS NAIL, 6 OR MORE 01/14/2020 40784-DZSGDQN NAIL, 6 OR MORE 03/17/2020 75032-RVEMUHQ NAIL, 6 OR MORE 05/19/2020 97692-YVARHKV NAIL, 6 OR MORE 08/11/2020 66757-JCSTFRP NAIL, 6 OR MORE 08/06/2019 83015-DKYBUGV NAIL, 6 OR MORE 11/24/2020 60692-XEOLEWR NAIL, 6 OR MORE 04/23/2011 92222-ELPKUHI NAIL, 6 OR MORE 07/02/2011 49208-RPMBMGK NAIL, 6 OR MORE 09/17/2011 04164-MHYNTGN NAIL, 6 OR MORE 11/26/2011 23649-JFSCFWN NAIL, 6 OR MORE 02/06/2012 36203-UZRUMKS NAIL, 6 OR MORE 04/23/2012 03980-HULVMLM NAIL, 6 OR MORE 06/30/2012 37821-JUCWKGZ NAIL, 6 OR MORE 2012 61916-CGEEKSV NAIL, 6 OR MORE 01/12/2013 95490-PPFGLZF NAIL, 6 OR MORE 10/27/2012 71568-SZNDSYE NAIL, 6 OR MORE 03/30/2013 24612-KARZWVS NAIL, 6 OR MORE 06/15/2013 67200-RNLSIEO NAIL, 6 OR MORE 09/09/2013 90816-NDYYNCB NAIL, 6 OR MORE 11/11/2013 64365-IQVGQCI NAIL, 6 OR MORE 01/28/2014 20471-ZKOGXFA NAIL, 6 OR MORE 04/01/2014 03186-UEMONMU NAIL, 6 OR MORE 06/21/2014 62882-GDKDGAM NAIL, 6 OR MORE 09/08/2014 94178-DTYFJIQ NAIL, 6 OR MORE 02/02/2021 63936-EYINWIW NAIL, 6 OR MORE 05/18/2021 60938-JOBJGYS NAIL, 6 OR MORE 08/31/2021 71432-LLINEFZ NAIL, 6 OR MORE 11/09/2021 86607-QJSGYGB NAIL, 6 OR MORE 02/08/2022 86406-YSZLJEK NAIL, 6 OR MORE 08/23/2022 04594-IPRJZTL NAIL, 6 OR MORE 12/06/2022 68982-XQKOGYK NAIL, 6 OR MORE 03/21/2023 76979-LANJGTB NAIL, 6 OR MORE 06/27/2023 51019-XHNHRXE NAIL, 1-5 03/21/2015 16575-JLMHNLI NAIL, 1-5 05/30/2015 86040-SHIGQDS NAIL, 1-5 07/25/2015 02103-XMSIFIH NAIL, 1-5 10/05/2015 18810-DMWUAZY NAIL, 1-5 12/14/2015 05008-IPPRPVW NAIL, 1-5 03/12/2016 57994-XXCQDQK NAIL, 1-5 01/01/2019 23839-WWOGTLE NAIL, 07-2605/18/2019 84195-IOEZAHS NAIL, 07-2603/13/2018 92587-DJSYPJL NAIL, 07-2606/05/2018 98207-PSETMZI NAIL, 07-2608/14/2018 62646-CZJKXIY NAIL, 07-2610/23/2018 67941-JRSFPVO NAIL, 07-2603/09/2019 88381-ZTPNRQH NAIL, 07-2605/28/2016 96795-EPOVLWA NAIL, 07-2608/27/2016 91184-BJGQHOV NAIL, 07-2611/12/2016 14154-RUTGIEF NAIL, 07-2601/07/2017 29676-NZMSFFJ NAIL, 07-2603/18/2017 05399-TNAQAPY NAIL, 07-2605/20/2017 10855-CZJJLHT NAIL, 07-2608/12/2017 79614-UALHUKL NAIL, 07-2610/24/2017 51113-JKEWVHG NAIL, 07-2601/02/2018 15452-Yfjgrhlp Plate 10/24/2017 39059-Jelqrfjr Plate 05/20/2017 33771-Aryzuaaq Plate 03/18/2017 73974-Ucubyycl Plate 11/12/2016 92179-Cjdsbfid Plate 08/27/2016 26099-Ukgytpsy Plate 05/28/2016 66759-Aggwjwyr Plate 03/09/2019 27989-Csfzocmf Plate 08/14/2018 86741-Sokfqrju Plate 03/13/2018 92885-Sibzpuss Plate 08/06/2019 32252-Ajbaonnd Plate 01/14/2020 55269-Dswsfekd Plate 11/24/2020 50209-Zzshzqjd Plate 08/11/2020 46002-Rxstsnvl Plate 03/12/2016 41491-Kpzmrfro Plate 12/14/2015 93239-Gxyxqdtc Plate 10/05/2015 42888-Hacryxdn Plate 03/21/2015 33613-Ptuswaoa Plate 09/08/2014 94872-Bgnrjmpo Plate 11/15/2014 14060-Euosfxhs Plate 01/17/2015 09675-Gsqnmzkn Plate 06/21/2014 00792-Nofuoaio Plate 04/01/2014 49064-Requdhlc Plate 01/28/2014 53178-Fikewchd Plate 11/11/2013 79116-Gxrlixke Plate 09/09/2013 84283-Nnkchker Plate 06/15/2013 01774-Zqdsavhi Plate 10/27/2012 00709-Akjdrqsx Plate 03/30/2013 44192-Pfhogpcm Plate 01/12/2013 37239-Cvcmhrbd Plate 2012 58325-Gvhdfgih Plate 06/30/2012 74062-Ovizxahr Plate 02/06/2012 37853-Sqwubdsi Plate 11/26/2011 05334-Iiejyycj Plate 03/21/2023 17557-Zrgegamf Plate 05/10/2022 29900-Jqybjzst Plate 11/09/2021 62533-Jpakduwv Plate 02/02/2021 75139-Ekjrgptz Plate 05/18/2021 01342-Uzgycflz Plate 08/31/2021 16147-Txidicke Plate Each Additional 99662-Foyncepw Plate Each Additional 83155-Sylvpzya Plate Each Additional 01/2012 40357-Tvqcmjrm Plate Each Additional 21890-Nstktwem Plate Each Additional 04/2012 85045-Gwbzncwd Plate Each Additional 05/2013 33092-Spuxpkkg Plate Each Additional 06602-Whitpnpl Plate Each Additional 03/2013 25874-Jgbykwpr Plate Each Additional 02/2013 62397-Xlbxebxx Plate Each Additional 28392-Kgriuzqw Plate Each Additional 12323-Oijlevur Plate Each Additional 04/2014 18803-Irhjmjdv Plate Each Additional 68248-Wuwlcpgo Plate Each Additional 56922-Eqjtjigy Plate Each Additional 96539-Fspxubno Plate Each Additional 12/2020 59262-Dbtywzuj Plate Each Additional 66482-Wxchtdjn Plate Each Additional 16558-Pwocfstg Plate Each Additional 96783-Tczcenba Plate Each Additional 63180-Idhtpdpo Plate Each Additional 11/2017 98537 I&D ABSCESS- SIMPLE,SINGLE 015 65564 I&D ABSCESS- SIMPLE,SINGLE 015 03192 I&D ABSCESS- SIMPLE,SINGLE 014 77099 I&D ABSCESS- SIMPLE,SINGLE 015 28139 I&D ABSCESS- SIMPLE,SINGLE 013 97671 I&D ABSCESS- SIMPLE,SINGLE 013 78413 I&D ABSCESS- SIMPLE,SINGLE 013 48414 I&D ABSCESS- SIMPLE,SINGLE 013 35551 I&D ABSCESS- SIMPLE,SINGLE 012 89522 I&D ABSCESS- SIMPLE,SINGLE 012 41892 I&D ABSCESS- SIMPLE,SINGLE 011 88431- I&D ABSCESS-COMPLICATED,MULTI 07/2013 87769-YTRW SKIN LESIONS, OVER 4 03/21/20 23 74398-AVHN SKIN LESIONS, OVER 4 10/07/19 24 49764-OFQY SKIN LESIONS, OVER 4 06/27/20 23 30624-VHDU SKIN LESIONS, OVER 4 01/30/20 24 68859-IQKL SKIN LESIONS, OVER 4 04/30/20 24 74623-SBUQ SKIN LESIONS, OVER 4 08/17/19 25 95729-UZNO SKIN LESIONS, OVER 4 11/20/19 25 95402-HJES SKIN LESIONS, OVER 4 05/10/20 22 27791-XXAR SKIN LESIONS, OVER 4 08/23/19 23 43739-HFZY SKIN LESIONS, OVER 4 12/07/19 23 10332-AQVM SKIN LESIONS, OVER 4 03/04/20 25 70364-IBUP SKIN LESIONS, 2 TO 4 02/09/20 22 49362-NQDB SKIN LESIONS, 2 TO 4 05/18/20 21 40966-OKXS SKIN LESIONS, 2 TO 4 11/10/19 22 86206-BQKU SKIN LESIONS, 2 TO 4 08/31/19 22 37478-PQLY SKIN LESIONS, 2 TO 4 10/05/19 16 01185-DMKW SKIN LESIONS, 2 TO 4 12/14/19 16 12469-IMQD SKIN LESIONS, 2 TO 4 03/12/20 16 05111-JTSS SKIN LESIONS, 2 TO 4 10/25/19 18 46932-QBYE SKIN LESIONS, 2 TO 4 01/03/20 18 81181-UVVW SKIN LESIONS, 2 TO 4 03/13/20 18 00764-TYRY SKIN LESIONS, 2 TO 4 05/20/20 17 52464-TJFI SKIN LESIONS, 2 TO 4 08/12/19 18 73220-RYUD SKIN LESIONS, 2 TO 4 05/28/20 16 57865-HXFI SKIN LESIONS, 2 TO 4 08/27/19 17 78157-SCSO SKIN LESIONS, 2 TO 4 11/13/19 17 22131-MZTS SKIN LESIONS, 2 TO 4 03/18/20 17 94110-ZVUQ SKIN LESIONS, 2 TO 4 01/08/20 17 08811-CSRD SKIN LESIONS, 2 TO 4 08/14/19 19 36720-OLQF SKIN LESIONS, 2 TO 4 06/05/20 18 00789-QUWM SKIN LESIONS, 2 TO 4 10/24/19 19 66826-KNML SKIN LESIONS, 2 TO 4 01/02/20 19 06081-TBWF SKIN LESIONS, 2 TO 4 05/18/20 19 71486-TNFP SKIN LESIONS, 2 TO 4 03/09/20 19 40662-CYRQ SKIN LESIONS, 2 TO 4 11/25/19 21 96787-EFCJ SKIN LESIONS, 2 TO 4 02/03/20 21 K0401-UAZXOZJJ DYSTROPHIC NAILS ANY # G0803-LJEJNTED DYSTROPHIC NAILS ANY # E0443-UESPEXLF DYSTROPHIC NAILS ANY # K9639-YYLVNNEM DYSTROPHIC NAILS ANY # H8364-VQCQHVWZ DYSTROPHIC NAILS ANY # Z4141-MZDARAIH DYSTROPHIC NAILS ANY # F1210-MJIKWQIT DYSTROPHIC NAILS ANY # Y3512-XONHPVII DYSTROPHIC NAILS ANY # Y9597-YBZFAIJA DYSTROPHIC NAILS ANY # J3788-QQGLNCLU DYSTROPHIC NAILS ANY # F4140-ULFJAADV DYSTROPHIC NAILS ANY # O3149-WXIVKCUK DYSTROPHIC NAILS ANY # T4628-NOXYLNVV DYSTROPHIC NAILS ANY # S0256-PLNJMEHQ DYSTROPHIC NAILS ANY # A4618-HMBBDHTJ DYSTROPHIC NAILS ANY # J0976-VWCVXXCR DYSTROPHIC NAILS ANY # O5648-GTJDCPPN DYSTROPHIC NAILS ANY # W4645-LFKXUNGM DYSTROPHIC NAILS ANY # C3840-TOYXNPNK DYSTROPHIC NAILS ANY # B9299-FTQTFVEQ DYSTROPHIC NAILS ANY # M7416-VGXUHZLL DYSTROPHIC NAILS ANY # D6641-CVXEDAUI DYSTROPHIC NAILS ANY # Z5292-NNYVQICQ DYSTROPHIC NAILS ANY # L5807-AHHPJPVP DYSTROPHIC NAILS ANY # A3229-VJQVEFRX DYSTROPHIC NAILS ANY # O3666-MRZCIYUS DYSTROPHIC NAILS ANY # Next Appt Details Provider Name:June Hinojosa , 06/10/2025 01:30:00 PM, [address] [place], [address], Insurance Providers Payer Name Payer Address Payer Phone Subscriber Number Group Number Insured Name Patient Relationship to Insured Coverage Start Date Coverage End Date [facility] 65 Medicare Preferred [address] [place] [address] [id number] Emily Watters Self - patient is the insured Medical (General) History Medical History History ICD Code transfusions chicken pox hypertension diabetes mellitus Cholesterol Other hammer toe(s) (acquired), right fo ot M20.41 Other hammer toe(s) (acquired), left anabel t M20.42 Surgical History Surgery Date(Month/Year) hysterectomy 1996 Hospitalization History Reason Date(Month/Year) Sebatious cyst removal on chest - [facility] liver ultrasound 02/17/16
== END 2025-06-03 14:28 | disposition home or self-care (01) ==
LOC: HO.HMCC 13:11
PROVIDERS: PCP Internal Medicine; Visit Provider Internal Medicine
DX: E78.2 Mixed hyperlipidemia (principal); E11.22 Type 2 diabetes mellitus with diabetic chronic kidney disease; N18.30 Chronic kidney disease, stage 3 unspecified; E89.40 Asymptomatic postprocedural ovarian failure

== ENCOUNTER → 2025-06-03 13:10 | Outpatient (BNVA) | payer MEDICARE, SELFPAY | PROVIDERS: PCP Internal Medicine; Visit Provider Internal Medicine | DX: E11.22 Type 2 diabetes mellitus with diabetic chronic kidney disease (principal); I12.9 Hypertensive chronic kidney disease with stage 1 through stage 4 chronic kidney disease, or unspecified chronic kidney disease; E78.2 Mixed hyperlipidemia; N18.30 Chronic kidney disease, stage 3 unspecified; E66.9 Obesity, unspecified; Z68.43 Body mass index [BMI] 50.0-59.9, adult; Z71.89 Other specified counseling | CPT/HCPCS: 96127; 99211; 99212 ==